=== PATIENT | female | born 1960 | race Caucasian/White ===

== ENCOUNTER 2023-07-16 13:07 | Inpatient (IN) | payer MEDICARE, SELFPAY ==
[2023-07-16] VITALS (9 sets, daily range): BP systolic 0–130; BP diastolic 0–90; PULSE 70–120; RESP 18–21; TEMP 36.1–37.1; O2SAT 94–99; BMI 49.1
[2023-07-16 13:25] LABS: MANUAL DIFFERENTIAL MANUAL DIFFERENTIAL (MANUAL DIFF)
[2023-07-16 13:32] LABS: Chloride 108 mmol/L (98-107)
[2023-07-16 13:33] LABS: Potassium 4.5 mmoL/L (3.5-5.1); Sodium 138 mmol/L (136-145)
[2023-07-16 13:35] LABS: Blood Urea Nitrogen 21 mg/dl (7-17); Creatinine Clearance Estimated 46 mL/min (50-200); Estimated Glomerular Filt Rate 63 ml/min (>60); GFR (African American) 77 ML/MIN (>60)
[2023-07-16 13:36] LABS: Anion Gap 9.5 mEq/L (5-15); Calcium 9.7 mg/dl (8.4-10.2); Carbon Dioxide 25 mmol/L (22.0-30.0); Glucose 120 mg/dl (74-100)
--- NOTE | 2023-07-16 13:40 | PC.NURSE ---
Late entry: pt arrived to the floor at 1310 via EMS stretcher
--- NOTE | 2023-07-16 13:44 | HMH.PHAHEP ---
[facility] Pharmacy Heparin Dosing Demographic Data Admission date:: 07/16/23 Date: 07/16/23 Time: 13:44 Allergies Allergy/AdvReac Type Severity Reaction Status Date / Time Penicillins Allergy Mild Verified 07/16/23 13:29 Height: 1.57 m Weight: 122.016 kg Indication Medication therapy:: Heparin Current Indications:: PE-HIGH DOSE PROTOCOL Current Active Problems (Updated 07/17/23 @ 03:13 by Davy Byers APRN) HTN (hypertension) (Acute) Pulmonary embolism (Acute) CVA?: No Bleeding problem?: No Kidney disease?: No ME?: No Desired PTT range:: 50-75 seconds Monitoring Dose Monitor 1: Date: 07/16/23 Time: 13:30 PTT Result:: BASELINE PTT: 109.6 SECONDS Infusion Rate:: CONTINUED HEPARIN DRIP RATE FROM [facility] AT 2400 UNITS/HOUR = 48 ML/HOUR. Comment:: BASELINE PTT ORDERED, PATIENT TRANSFERRED FROM [facility] ON HEPARIN DRIP. PER ROSARIO PERRY, PATIENT WAS ON 24.2 ML/DRSF=2922 ML/HOUR AT [facility] (THEY USE A 45226 UNITS/250 ML HEPARIN BAG). STARTED OUR BAG (49614 UNITS/500 ML) AT 48 ML/HOUR = 2400 UNITS/HOUR. Dose Monitor 2: Date: 07/16/23 Time: 15:00 (NOT DRAWN UNTIL 18:40.) PTT Result:: GREATER THAN 139.0 SECONDS Infusion Rate:: DECREASED HEPARIN DRIP TO 2000 UNITS/HOUR = 40 ML/HOUR. Dose Monitor 3: Date: 07/16/23 Time: 22:40 PTT Result:: 139.0 SECONDS Infusion Rate:: HEPARIN DRIP STOPPED AT 00:58 (07/17/23) FOLLOWING XARELTO 15 MG DOSE AT 22:06. Core Measures Is INR > or = 2 at discharge?: No Most Recent Labs:: Laboratory Results - last 24 hr 07/16/23 13:23: Sodium 138, Potassium 4.5, Chloride 108 H, Carbon Dioxide 25, Anion Gap 9.5, BUN 21 H, Creatinine 0.90, Estimated Creat Clear 46, Estimated GFR 63, Est GFR ( Amer) 77, Glucose 120 H, Calcium 9.7 Were Heparin and Warfarin started on the same day?: No
--- NOTE | 2023-07-16 13:54 | PC.NURSE ---
pt to matlab developer by scott at this time
--- NOTE | 2023-07-16 14:03 | IR_ITS ---
APPROVED REPORT Patient Location: Emergent Immigration Inspector: ANTHONY Alvarez RT (R) PROCEDURES Right heart catheterization Catheter placed in the right pulmonary artery Right pulmonary artery selective angiogram Catheter placement in the left pulmonary artery Left pulmonary artery selective angiogram Mechanical thrombectomy to the right pulmonary artery Mechanical thrombectomy to the left pulmonary Mechanical thrombectomy to the main pulmonary Post mechanical thrombectomy main pulmonary artery angiogram Right heart catheterization post mechanical thrombectomy INDICATION Saddle pulmonary embolism, Severe right ventricular strain, Submassive pulm embolism Informed consent was obtained prior to the procedure. COMPLICATIONS None TECHNIQUE 1% lidocaine used to size right groin the right femoral vein was accessed via the center technique and a 7 Northern Irish sheath was placed in the right femoral artery. This was upsized to a 14 [place] sheath and an angled pigtail catheter was placed in the right pulmonary artery under fluoroscopic guidance. Selective angiography was performed. This was repeated in the left pulmonary artery. Following this an Amplatz wire was placed through the pigtail catheter and a penumbra aspiration catheter was advanced and mechanical aspiration was performed in the bilateral pulmonary arteries. Copious white and dark red thrombus was aspirated. Patient's initial pulmonary systolic pressure was 50 mmHg. After mechanical thrombectomy of the bilateral pulmonary arteries and main pulmonary artery PA systolic pressure dropped to 25 mmHg. Initial angiography demonstrated bilateral thrombi in the proximal pulmonary artery and main right and left pulmonary arteries. Following mechanical thrombectomy there was wide patency throughout the entire right lung with small to medium sized clot in the upper lobe which did not impede distal parenchymal perfusion. Slightly larger thrombus was identified in the left lung significantly reduced from baseline angiography with significant improvement in distal perfusion. At the end of the procedure pulmonary artery angiography was performed. Right heart catheterization was repeated. The apparatus was then removed the sheath was removed good hemostasis was achieved using a Z stitch and mechanical pressure. Patient transferred to the postop holding in stable condition ANGIOGRAPHIC RESULTS Pulmonary artery pressure preprocedure was 50/35 mmHg Pulmonary artery pressure postprocedure was 25/15 mmHg IMPRESSION Submassive saddle pulmonary embolism as described above Successful mechanical thrombectomy as described above the bilateral pulmonary arteries and main pulmonary Significant reduction in pulmonary artery systolic pressure from 50 mmHg to 25 mmHg Incidental left atrial thrombus identified by CTA which requires additional workup and evaluation PLAN 1. Xarelto 15 mg p.o. twice daily 2. Start Xarelto 15 mg this evening and 2 hours later discontinue heparin drip 3. Supportive care 4. CBC chemistry panel in the morning 5. I would like to obtain echocardiogram Tuesday to better evaluate right ventricular size and pressure 6. Consider JANINE Tuesday to better evaluate structure in the left atrial Electronically signed by : Elijah Mann MD 07/16/2023 16:40:55
[2023-07-16 14:05] LABS: Basophils # 0.1 K/mm3 (0-0.2); Basophils % 0.6 % (0.1-2.0); Eosinophils # 0.1 K/mm3 (0.0-0.4); Eosinophils % 0.6 % (0.1-12.0); Hematocrit 45.7 % (37.0-47.0); Hemoglobin 14.7 g/dL (12.2-16.2); Lymphocytes # 2.9 K/mm3 (0.7-4.5); Lymphocytes % 25.1 % (10-50); Mean Corpuscular HGB Conc 32.2 g/dL (31.8-35.4); Mean Corpuscular Hemoglobin 31.3 pg (27.0-31.2); Mean Corpuscular Volume 96.9 fl (81-99); Mean Platelet Volume 8.8 fl (7.4-10.4); Monocytes # 0.8 K/mm3 (0.1-1.0); Monocytes % 6.4 % (1.7-9.3); Neutrophils # 7.9 K/mm3 (1.8-7.8); Neutrophils % 67.4 % (37.0-80.0); Platelet Count 208 K/mm3 (142-424); Red Blood Count 4.72 M/mm3 (4.20-5.40); Red Cell Distribution Width 14.9 % (11.5-17.5); White Blood Count 11.7 K/mm3 (4.8-10.8)
[2023-07-16 14:10] LABS: PTT Heparin (inpatient only) 109.6 Seconds (23.6-34.0)
[2023-07-16] MEDS: 0.9 % SODIUM CHLORIDE 500 ML 25 ML IV (14:18)
[2023-07-16] MEDS: LIDOCAINE 1% 10ML MDV 20 ML IJ (14:18)
[2023-07-16] MEDS: HEPARIN 1,000 UNITS/500ML NS (CATH LAB) 3000 UNIT IV (14:18)
[2023-07-16] MEDS: diphenhydrAMINE 50MG/ML VIAL 50 MG IV (14:18)
[2023-07-16] MEDS: ONDANSETRON 4MG/2ML VIAL 4 MG IV ×2 (14:27→21:18)
--- NOTE | 2023-07-16 14:34 | HMH.PHAINT1 ---
Pharmacy Intervention Comments: MEDICATION RECONCILIATION COMPLETE USING EXTERNAL PHARMACY FILL HISTORY AND PATTY REPORT.
[2023-07-16] MEDS: HEPARIN 1,000 UNITS/ML 10ML VIAL (CATH LAB) 10000 UNIT IV (14:38)
[2023-07-16 15:27] LABS: Lymphocytes % 25 % (10-50); Monocytes % 3 % (2-9); Neutrophils % 72 % (42-76); Platelet Estimate Normal; RBC Morphology Normal; Total Cells Counted 100
[2023-07-16] MEDS: MIDAZOLAM HCL 1MG/1ML 5ML VIAL 1 MG IV (16:24)
[2023-07-16] MEDS: FENTANYL 100MCG/2ML VIAL 50 MCG IV (16:24)
--- NOTE | 2023-07-16 17:00 | EXP.HP ---
History of Present Illness *Admission Date: 07/16/23 *Reason for visit:: pulmonary embolism *History of present illness: Patient is a 63-year-old female with past medical history of hypertension hyperlipidemia hypothyroidism who presents to the hospital from outside facility due to pulmonary embolism. Cardiology was consulted from [facility], cardiology recommended to transfer the patient to & for further evaluation and possible thrombectomy. At time of my evaluation patient denies chest pain shortness of breath nausea vomiting constipation dysuria fevers and chills. [facility] Disclaimer: The information contained in this section may have been updated after the patient was seen, as this information can be updated by other users. Social History Smoking Status: Smoker, status unknown alcohol intake: never current occupational status: disabled Travel in the last 8 weeks: None Review of Systems Review of Systems Review of systems:: pertinent systems reviewed and negative unless documented below Meds Home Medications and Allergies Home Medications Medication Instructions Recorded Confirmed Type amlodipine 10 mg tablet 10 mg PO DAILY 07/16/23 07/16/23 History bupropion HCl 150 mg 24 hr tablet, 150 mg PO DAILY 07/16/23 07/16/23 History extended release buspirone 15 mg tablet 15 mg PO TID 07/16/23 07/16/23 History divalproex 125 mg tablet,delayed 125 mg PO BID 07/16/23 07/16/23 History release ergocalciferol (vitamin D2) 1,250 1,250 mcg PO MONTHLY 07/16/23 07/16/23 History mcg (50,000 unit) capsule famotidine 40 mg tablet 40 mg PO DAILY 07/16/23 07/16/23 History gabapentin 300 mg capsule 300 mg PO Q12H 07/16/23 07/16/23 History levothyroxine 75 mcg tablet 75 mcg PO DAILYDM 07/16/23 07/16/23 History pravastatin 20 mg tablet 20 mg PO DAILY 07/16/23 07/16/23 History quetiapine 100 mg tablet 100 mg PO HS 07/16/23 07/16/23 History semaglutide 0.25 mg or 0.5 mg (2 0.5 mg SQ WEEKLY 07/16/23 07/16/23 History mg/3 mL) subcutaneous pen injector (Ozempic) New Prescriptions to Start Prescriptions: Allergies Allergy/AdvReac Type Severity Reaction Status Date / Time Penicillins Allergy Mild Verified 07/16/23 13:29 Exam Data for Last 24 hours Vital signs and Labs for Last 24 Hours: Temp Pulse Resp BP Pulse Ox O2 Del Method O2 Flow Rate 97.7 F 120 H 21 0/0 L 95 Nasal Cannula 3 07/16/23 13:19 07/16/23 13:19 07/16/23 13:19 07/16/23 13:19 07/16/23 13:19 07/16/23 13:07/16/23 13:19 Laboratory Results - last 24 hr 07/16/23 13:23: WBC 11.7 H, RBC 4.72, Hgb 14.7, Hct 45.7, MCV 96.9, MCH 31.3 H, MCHC 32.2, RDW 14.9, Plt Count 208, MPV 8.8, Neut % (Auto) 67.4, Lymph % (Auto) 25.1, [place] % (Auto) 6.4, Eos % (Auto) 0.6, Baso % (Auto) 0.6, Neut # (Auto) 7.9 H, Lymph # (Auto) 2.9, [place] # (Auto) 0.8, Eos # (Auto) 0.1, Baso # (Auto) 0.1, Total Counted 100, Neutrophils % (Manual) 72, Lymphocytes % (Manual) 25, Monocytes % (Manual) 3, Platelet Estimate Normal, RBC Morphology Normal, APTT 109.6 H*, Sodium 138, Potassium 4.5, Chloride 108 H, Carbon Dioxide 25, Anion Gap 9.5, BUN 21 H, Creatinine 0.90, Estimated Creat Clear 46, Estimated GFR 63, Est GFR ( Amer) 77, Glucose 120 H, Calcium 9.7 I & O for Last 24 hours: Intake & Output 07/13/23 07/14/23 07/15/23 07/16/23 23:59 23:59 23:59 23:59 Weight 122.016 kg Constitutional Constitutional: no acute distress *Routine HEENT Exam Head: Present normocephalic Eye: Present EOMI and PERRL ENT: Present mucous membranes moist *Routine Neck Exam Neck: Present supple; Absent lymphadenopathy *Routine Respiratory Exam Respiratory: Present CTA bilaterally *Routine Cardiovascular Exam Cardiovascular: Present RRR *Routine Abdominal Exam Abdominal: Present soft and normoactive bowel sounds; Absent tenderness *Routine Rectal Exam Rectal:: deferred *Routine Genitalia Exam Genitalia:: deferred *Routine Extremities Exam Extremities: Absent cyanosis, clubbing or edema *Routine Skin Exam Skin: Present warm; Absent rash *Routine Neurological Exam Neurological: Present alert and oriented X3 Assessment and Plan *Assessment and plan (1) Pulmonary embolism: Status: Acute Category: Medical Code(s): I26.99 - Other pulmonary embolism without acute cor pulmonale (2) HTN (hypertension): Status: Acute Category: Medical Code(s): I10 - Essential (primary) hypertension Plan Patient is a 63-year-old female with past medical history of hypertension hyperlipidemia hypothyroidism who presents to the hospital from outside facility due to pulmonary embolism. Cardiology was consulted from [facility], cardiology recommended to transfer the patient to & for further evaluation and possible thrombectomy. At time of my evaluation patient denies chest pain shortness of breath nausea vomiting constipation dysuria fevers and chills. Assessment and plan Pulmonary embolism Start IV heparin, then switch to Xarelto Consult cardiology for potential thrombectomy Monitor on cardiac telemetry D-dimer checked at previous facility, elevated plan for JANINE per cardioloogy Hypertension Hyperlipidemia Hypothyroidism Resume home amlodipine, divalproex, buspirone, Neurontin, Seroquel DVT prophylaxis-on xarelto Cardiac cath report IMPRESSION Submassive saddle pulmonary embolism as described above Successful mechanical thrombectomy as described above the bilateral pulmonary arteries and main pulmonary Significant reduction in pulmonary artery systolic pressure from 50 mmHg to 25 mmHg Incidental left atrial thrombus identified by CTA which requires additional workup and evaluation PLAN 1. Xarelto 15 mg p.o. twice daily 2. Start Xarelto 15 mg this evening and 2 hours later discontinue heparin drip 3. Supportive care 4. CBC chemistry panel in the morning 5. I would like to obtain echocardiogram Tuesday to better evaluate right ventricular size and pressure 6. Consider JANINE Tuesday to better evaluate structure in the left atrial
[2023-07-16] MEDS: IOPAMIDOL-370 (76%);100ML BOTTLE 300 ML IV (17:01)
[2023-07-16 17:05] LABS: CATHL Activated Clotting Time 183 SEC (74-125)
[2023-07-16 17:05] LABS: CATHL Activated Clotting Time > 400 SEC (74-125)
--- NOTE | 2023-07-16 17:17 | PC.NURSE ---
pt back to floor @ [phone]
--- NOTE | 2023-07-16 18:14 | CT_ITS ---
PROCEDURE INFORMATION: Exam: CT Head Without Contrast Exam date and time: 07/16/2023 8:22 PM Age: 63 years old Clinical indication: Other: Hypotension TECHNIQUE: Imaging protocol: Computed tomography of the head without contrast. Radiation optimization: All CT scans at this facility use at least one of these dose optimization techniques: automated exposure control; mA and/or kV adjustment per patient size (includes targeted exams where dose is matched to clinical indication); or iterative reconstruction. COMPARISON: No relevant prior studies available. FINDINGS: Brain: Normal. No hemorrhage. Unremarkable white matter. No mass effect. Cerebral ventricles: No ventriculomegaly. Paranasal sinuses: Visualized sinuses are unremarkable. No fluid levels. Mastoid air cells: Visualized mastoid air cells are well aerated. Bones/joints: Unremarkable. No acute fracture. Soft tissues: Unremarkable. IMPRESSION: No acute intracranial abnormality.
--- NOTE | 2023-07-16 18:43 | PC.NURSE ---
difficulty obtaining blood pressure notified dr teresa. no new orders.
[2023-07-16] MEDS: NOREPINEPHRINE BITARTRATE/D5W 8 MG/250 ML PLAST..BAG 15 MG IV (19:01)
[2023-07-16 19:02] LABS: MANUAL DIFFERENTIAL MANUAL DIFFERENTIAL (MANUAL DIFF)
[2023-07-16] MEDS: HEPARIN 25,000 UNITS/D5W 500 ML 48 UNIT IV (19:02)
[2023-07-16 19:07] LABS: Basophils # 0.1 K/mm3 (0-0.2); Basophils % 0.5 % (0.1-2.0); Eosinophils % 0.2 % (0.1-12.0); Hematocrit 35.3 % (37.0-47.0); Lymphocytes % 14.9 % (10-50); Mean Corpuscular HGB Conc 30.1 g/dL (31.8-35.4); Mean Corpuscular Hemoglobin 31.5 pg (27.0-31.2); Mean Corpuscular Volume 104.8 fl (81-99); Mean Platelet Volume 9.7 fl (7.4-10.4); Monocytes # 0.6 K/mm3 (0.1-1.0); Monocytes % 4.6 % (1.7-9.3); Neutrophils # 10.5 K/mm3 (1.8-7.8); Neutrophils % 79.8 % (37.0-80.0); Platelet Count 186 K/mm3 (142-424); Red Blood Count 3.37 M/mm3 (4.20-5.40); Red Cell Distribution Width 14.8 % (11.5-17.5); White Blood Count 13.2 K/mm3 (4.8-10.8)
[2023-07-16 19:13] LABS: Chloride 97 mmol/L (98-107); Sodium 126 mmol/L (136-145)
[2023-07-16 19:15] LABS: Hemoglobin 10.6 g/dL (12.2-16.2)
[2023-07-16 19:16] LABS: Blood Urea Nitrogen 20 mg/dl (7-17); Creatinine Clearance Estimated 43 mL/min (50-200); Estimated Glomerular Filt Rate 56 ml/min (>60); GFR (African American) 68 ML/MIN (>60)
[2023-07-16 19:17] LABS: Calcium 7.3 mg/dl (8.4-10.2); Carbon Dioxide 18 mmol/L (22.0-30.0)
[2023-07-16 19:23] LABS: Glucose 615 mg/dl (74-100)
[2023-07-16 19:26] LABS: Lymphocytes % 19 % (10-50); Monocytes % 2 % (2-9); Neutrophils % 79 % (42-76); Total Cells Counted 100
[2023-07-16 19:27] LABS: Macrocytosis 1+; Platelet Estimate Normal
[2023-07-16 19:52] LABS: PTT Heparin (inpatient only) > 139.0 Seconds (23.6-34.0)
[2023-07-16] MEDS: HEPARIN 25,000 UNITS/D5W 500 ML 40 UNIT IV (20:15)
[2023-07-16] MEDS: RIVAROXABAN 15MG TABLET 15 MG PO (22:06)
--- NOTE | 2023-07-16 22:47 | PC.NURSE ---
1951- spoke with aleida regarding results of CBC, asked if he wanted the zstitch to be removed, stated to remove it 2005- pharmacy called about PTT results, heparin dose decreased to 2,000 2049- z-stitch removed, pressure held for 20 mins 2109- reassessed site, bleeding continued, pressure held for 20 mins reassessed after 20 mins, bleeding continued, BAIL BONDING AGENT came to bedside, hemostat dressing applied with gauze and foam tape, sand bags applied, aleida notified of pt. bleeding 2205- xarelto given, communicated to Rn taking over that the heparin drip should be turned off 2 hours post administration 2214- report given to George Aj, RN
[2023-07-16] MEDS: QUETIAPINE 100MG TABLET 100 MG PO (23:03)
[2023-07-16] MEDS: DIVALPROEX 125 MG 125 EACH PO (23:03)
[2023-07-16] MEDS: PATIENT'S OWN HOME MEDICATION (Buspirone 15 mg tablet) 15 EACH PO (23:03)
[2023-07-16 23:21] LABS: INR 3.75 (0.9-1.1); Prothrombin Time 37.1 seconds (10.1-12.5)
--- NOTE | 2023-07-16 23:30 | PC.NURSE ---
called to check on patient. Update was given. Per aleida he wanted pressure dressing that Migel placed to stay in place in till morning.
[2023-07-17] VITALS (43 sets, daily range): BP systolic 62–104; BP diastolic 42–68; PULSE 96–118; RESP 14–20; TEMP 36.3–37.1; O2SAT 95–100
--- NOTE | 2023-07-17 00:52 | PC.NURSE ---
Addendum entered by aNomi Aj RN 07/17/23 05:56: Per dr. Mann orders Original Note: Heparin was stopped at [address] Arie choi
[2023-07-17] MEDS: PROMETHAZINE HCL 25MG/ML 1ML VIAL 25 MG IV ×2 (01:26→09:16)
[2023-07-17] MEDS: SODIUM CHLORIDE 0.9% 25ML BAG 25 ML IV (01:27)
[2023-07-17 02:10] LABS: Hematocrit 28.2 % (37.0-47.0)
[2023-07-17 02:14] LABS: Hemoglobin 7.9 g/dL (12.2-16.2)
--- NOTE | 2023-07-17 02:48 | EXP.RR ---
Acute Rapid Response Note Subjective Date Responded: 07/17/23 Time Responded: 02:48 Provider Note: SCOW DERRICK OPERATOR was called for hypotension and right groin bleeding (cath access site). patient seen and evaluated at bedside. nurses has been applying pressure sand bag 7Lbs to the right groin. hemostatic dressing applied. secured with compressing dressing and sand bag. unable to read BP in the monitor in all 4 extremities. patient max out on pressure. After placed on [place] position,. read came out 93/52. MAP 67. CBC ordered showed Hb7.9. 2 unit of blood ordered. ED provider assisting with arterial line placement for accurate reading of the BP. patient alert and oriented. HR 106. CMP showed blood sugar in the 800 s range. [facility] protocols also started Objective Findings: Vital Signs - Last 4 Hours Temperature 97.4 F L 07/17/23 01:00 Temperature Source Axillary 07/17/23 01:00 Pulse Rate 96 H 07/17/23 00:00 Respiratory Rate 18 07/17/23 00:00 Blood Pressure 93/52 L 07/17/23 00:00 Blood Pressure Mean 65 07/17/23 00:00 Blood Pressure Source Automatic Cuff 07/17/23 00:00 02 Sat by Pulse Oximetry 100 07/17/23 00:00 Oxygen Delivery Method Nasal Cannula 07/17/23 00:00 Oxygen Flow Rate (LPM) 2 07/17/23 00:00 Lab Results for Past 12 Hours 07/17/23 02:05: Hgb 7.9 L D, Hct 28.2 L 07/16/23 22:40: PT 37.1 H, INR 3.75 H, APTT 139.0 H* 07/16/23 18:48: Blood Type A Positive, Antibody Screen Negative 07/16/23 18:40: WBC 13.2 H, RBC 3.37 L D, Hgb 10.6 L D, Hct 35.3 L, MCV 104.8 H, MCH 31.5 H, MCHC 30.1 L, RDW 14.8, Plt Count 186, MPV 9.7, Neut % (Auto) 79.8, Lymph % (Auto) 14.9, [place] % (Auto) 4.6, Eos % (Auto) 0.2, Baso % (Auto) 0.5, Neut # (Auto) 10.5 H, Lymph # (Auto) 2.0, [place] # (Auto) 0.6, Eos # (Auto) 0.0, Baso # (Auto) 0.1, Total Counted 100, Neutrophils % (Manual) 79 H, Lymphocytes % (Manual) 19, Monocytes % (Manual) 2, Platelet Estimate Normal, RBC Morphology Not Reportable, Macrocytosis 1+, APTT > 139.0 H*, Sodium 126 L, Potassium 5.0, Chloride 97 L, Carbon Dioxide 18 L, Anion Gap 16.0 H, BUN 20 H, Creatinine 1.00, Estimated Creat Clear 43, Estimated GFR 56 L, Est GFR ( Amer) 68, Glucose 615 H* D, Calcium 7.3 L 07/16/23 16:14: Activated Clotting Time > 400 H* D 07/16/23 14:18: Activated Clotting Time 183 H* 07/16/23 13:23: Total Counted 100, Neutrophils % (Manual) 72, Lymphocytes % (Manual) 25, Monocytes % (Manual) 3, Platelet Estimate Normal, RBC Morphology Normal My Orders Category Date Time Status Transfuse RBC's [Red Blood Cells] Routine BBK 07/17/23 02:26 Results *NSG ONLY Trnsf 2 Units Now ONCE Care 07/17/23 02:27 Active Arterial pressure monitor CONT Care 07/17/23 02:37 Active Blood Product Notification* ONCE Care 07/17/23 02:27 Active Nursing to Order H/H Post Slade once Care 07/17/23 02:26 Active Periph arterial cath mgmt QSHIFT Care 07/17/23 02:37 Active Remove arterial line NEEDED Care 07/17/23 02:37 Active Saline Lock Insertion Once Care 07/17/23 02:26 Active CMP [Comprehensive Metabolic Panel] Stat Lab 07/17/23 02:43 Ordered Finger Stick Blood Glucose ACHS Lab 07/17/23 02:43 Active Finger Stick Blood Glucose NEEDED Lab 07/17/23 02:43 Active Hemoglobin and Hematocrit Stat Lab 07/17/23 02:05 Completed PT/PTT Stat Lab 07/16/23 22:40 Completed 0.9 % Sodium Chloride [Sod Chlor 0.9% 250mL Bag] 250 ml Med 07/17/23 02:30 Ordered IV 25 mls/hr 0.9 % Sodium Chloride [Sod Chlor 0.9% 25mL Bag] Med 07/17/23 01:19 Ordered 25 ml IV NEEDED PRN Gabapentin [Neurontin 300mg capsule] Med 07/17/23 09:00 Ordered 300 mg PO Q12H Ondansetron HCl/Pf [Zofran 4mg/2mL vial] Med 07/16/23 21:05 Discontinued 4 mg IV Q6HP PRN Promethazine HCl [Phenergan 25mg/mL 1mL vial] Med 07/17/23 01:19 Ordered 25 mg IV Q4HP PRN Radiology Findings #1: Xray Reviewed: Chest Image Reviewed: Yes I reviewed the patient's radiology results and Yes I reviewed the patient's radiology image ED XR Results: Normal/NAD ECG Data Tracing #1: Attestation EKG: I reviewed this ECG and interpreted as documented below: ECG initial impression date: 07/17/23 ECG initial impression time: 15:59 Arrhythmias present: sinus tach EKG compared to prior tracings: there are no prior tracings available for comparison Tracing #2: ECG initial impression date: 07/17/23 ECG initial impression time: 03:30 Arrhythmias present: sinus tach EKG compared to prior tracings: there are no significant changes Rapid Response Exam General General appearance: alert Head Head exam: atraumatic and normocephalic Eye Eye exam: Present normal appearance, PERRL and EOMI ENT ENT exam: Present normal exam Neck Neck exam: Present normal inspection Chest Chest inspection: Present normal inspection Respiratory Respiratory exam: Present normal lung sounds bilaterally Cardiovascular Cardiovascular exam: Present regular rate and tachycardia Abdominal Exam Abdominal exam: Present soft and normal bowel sounds Extremities Exam Extremities exam: Present normal capillary refill Expanded Lower Extremity Exam Right: 1. bleeding from surgical access site. no induration or pain to palpation. pedal and tibial posterior pulses are present by doppler Neurological Exam Neurological exam: Present alert and oriented X3 Psychiatric Psychiatric exam: Present normal affect Skin Skin exam: Present warm and pallor RR Procedures/Assess/Plan Additional Bedside Procedures NG tube insertion: No Fabian catheter insert: No Peripheral IV access: No Arterial blood draw: Yes Other: Arterial line placement Reevaluation(s) Time: 03:30 Reevaluation #1: hemodinamicall stable. BP 80/54 MAP 61. HR 108. Continue max out on levophed waiting blood transfusion. Hyperglycemia of 866. HHS star (1) Pulmonary embolism: Status: Acute Qualifiers: Acute cor pulmonale presence: with acute cor pulmonale Chronicity: acute Pulmonary embolism type: saddle Qualified Code(s): I26.02 - Saddle embolus of pulmonary artery with acute cor pulmonale (2) Hemorrhage: Status: Acute (3) Hyperosmolar hyperglycemic state (HHS): Status: Acute Assessment and plan all Dx Assessment and Plan for all problems:: After placed on [place] position,. read came out 93/52. MAP 67. CBC ordered showed Hb7.9. 2 unit of blood ordered. ED provider assisting with arterial line placement for accurate reading of the BP. patient alert and oriented. HR 106. hemodinamically stable. BP 80/54 MAP 61. HR 108. Continue max out on levophed waiting CMP showed hyperglicemia of 800's with open anion gap. insulin bolus ordered. started on insulin infusion.
[2023-07-17 02:53] LABS: Chloride 89 mmol/L (98-107); Potassium 4.3 mmoL/L (3.5-5.1); Sodium 121 mmol/L (136-145)
[2023-07-17 02:56] LABS: Alanine Aminotransferase 18 U/L (12-78); Albumin Level 2.3 g/dl (3.5-5.0); Alkaline Phosphatase 51 U/L (38-126); Anion Gap 20.3 mEq/L (5-15); Aspartate Amino Transferase 39 U/L (14-36); Bilirubin,Total 0.3 mg/dl (0.2-1.3); Blood Urea Nitrogen 19 mg/dl (7-17); Carbon Dioxide 16 mmol/L (22.0-30.0); Creatinine Clearance Estimated 43 mL/min (50-200); Estimated Glomerular Filt Rate 56 ml/min (>60); GFR (African American) 68 ML/MIN (>60); Globulin 2.2 g/dL (1.3-3.2); Total Protein,Serum 4.5 g/dl (6.3-8.2)
[2023-07-17 02:57] LABS: Calcium 6.4 mg/dl (8.4-10.2)
[2023-07-17 03:08] LABS: Glucose 866 mg/dl (74-100)
--- NOTE | 2023-07-17 03:25 | XR_ITS ---
PROCEDURE INFORMATION: Exam: XR Chest Exam date and time: 07/17/2023 4:16 AM Age: 63 years old Clinical indication: Device placement; Other: Central line; Prior surgery; Surgery date: Post-operative (0-2 days); Surgery type: Thrombectomy; Additional info: Pe. S/P thrombectomy. [facility] protocols, central line TECHNIQUE: Imaging protocol: Radiologic exam of the chest. Views: 1 view. COMPARISON: XA CL PULMONARY ANGIOGRAM 07/16/2023 2:04 PM FINDINGS: Tubes, catheters and devices: Right-sided central venous catheter distal tip is in the superior vena cava. Lungs: Right basilar atelectasis. No consolidation. Pleural spaces: No pneumothorax noted. Heart/Mediastinum: Unremarkable. No cardiomegaly. Diaphragm: Elevation of the right hemidiaphragm. Bones/joints: Unremarkable. IMPRESSION: Central venous catheter in good position.
[2023-07-17] MEDS: 0.9 % SODIUM CHLORIDE 250 ML 25 ML IV (03:30)
[2023-07-17] MEDS: NOREPINEPHRINE BITARTRATE/D5W 8 MG/250 ML PLAST..BAG 56.25 MG IV ×3 (03:50→09:21)
[2023-07-17] MEDS: 0.9 % SODIUM CHLORIDE 1000ML 500 ML 999 ML IV (04:10)
--- NOTE | 2023-07-17 04:20 | HMH.PROCNOTE ---
[facility] Procedure Note Date: 07/17/23 Time: 03:02 Procedure Note:: Arterial line placement Patient found to have good blood flow in the right radial artery with after Daniel's test performed. Under ultrasound guidance and sterile procedure a 21G radial arterial line Arrow was placed with good flush and draw and pressure obtained on monitor. Patient tolerated the procedure well. MD Silverio
--- NOTE | 2023-07-17 04:25 | HMH.PROCNOTE ---
[facility] Procedure Note Date: 07/17/23 Time: 04:20 Procedure Note:: Central line placement Central line needed for central vascular access as patient requiring pressor medication. Patient placed in Trendelenburg and under ultrasound guidance and sterile procedure an 18 Faroese catheter was placed in the right IJ. Patient tolerated the procedure well and all lumens were flushed and michelle without difficulty. X-ray obtained to confirm placement. Was placed at approximately 13.5 cm depth. Chantelle Vogel MD
[2023-07-17 04:54] LABS: ABG Base Excess -11.9 mmol/L (-2.4-2.3); ABG Oxygen Saturation 93 % (90-100); ABG PCO2 27.3 mmhg (35.0-45.0); ABG PH 7.33 mmol/L (7.35-7.45); ABG PO2 70.5 mmhg (80-100); ABG TCO2 14.9 mmhg (23-27)
[2023-07-17 04:55] LABS: Allen's Test Non Applicable; Oxygen 1.5 lpm nc %
[2023-07-17 04:56] LABS: Source A-Line
[2023-07-17 05:02] LABS: Basophils # 0.1 K/mm3 (0-0.2); Basophils % 0.7 % (0.1-2.0); Eosinophils % 0.1 % (0.1-12.0); Lymphocytes % 15.8 % (10-50); Mean Corpuscular HGB Conc 31.9 g/dL (31.8-35.4); Mean Corpuscular Hemoglobin 31.5 pg (27.0-31.2); Mean Corpuscular Volume 98.7 fl (81-99); Mean Platelet Volume 9.6 fl (7.4-10.4); Monocytes # 1.2 K/mm3 (0.1-1.0); Monocytes % 6.3 % (1.7-9.3); Neutrophils # 14.6 K/mm3 (1.8-7.8); Neutrophils % 77.1 % (37.0-80.0); Platelet Count 218 K/mm3 (142-424); Red Blood Count 3.75 M/mm3 (4.20-5.40); Red Cell Distribution Width 15.1 % (11.5-17.5); White Blood Count 18.9 K/mm3 (4.8-10.8)
[2023-07-17 05:05] LABS: MANUAL DIFFERENTIAL MANUAL DIFFERENTIAL (MANUAL DIFF)
[2023-07-17 05:06] LABS: Hemoglobin 11.8 g/dL (12.2-16.2)
[2023-07-17 05:09] LABS: Acetone, Serum (Rapid) None Detected (None Detect); Magnesium 1.8 mg/dl (1.6-2.3); Phosphorous 7.9 mg/dl (2.5-4.5)
[2023-07-17 05:10] LABS: Lactic Acid 2.7 mmol/L (0.7-2.1)
[2023-07-17 05:18] LABS: Microscopic, Urine URINE MICROSCOPIC (MICROSCOPIC)
[2023-07-17 05:21] LABS: Appearance,Urine SL CLOUDY (Clear); Bilirubin,Urine Negative (Negative); Blood, Urine Negative (Negative); Color,Urine YELLOW (Yellow); Glucose,Urine (UA) Negative (Negative); Ketones,Urine Negative (Negative); Leukocyte Esterase,Urine 1+ (Negative); Nitrate,Urine Negative (Negative); Protein,Urine Negative (Negative); Specific Gravity, Urine 1.015 (1.005-1.030); Urobilinogen,Urine 0.2 EU/dl (0.2)
--- NOTE | 2023-07-17 05:23 | PC.NURSE ---
At 0200 this nurse was unable to obtain a NIBP attempts was made using several locations, attempts to get a manual blood pressure was not successful. Migel, ENTERPRISE ACCOUNT EXECUTIVE was made aware and orders received to have an ART line placed for accurate blood pressure monitoring. ER doctor Chantelle was asked to place line and agreed to place ART line. ART line was placed to right radial artery, success 1st attempt. Pressures was reading 70s/40s, levophed GTT was titrated to max per protocol. Patient was pale, lethargic, and complaints of nausea. Patient had three episodes of vomiting clear emesis. Labs was obtained. Patients lab results showed elevated glucose to 866 and an anion gap of 20 Migel, ENTERPRISE ACCOUNT EXECUTIVE was notified and orders received to start DKA protocol. Patients HGB dropped to 7.9 Orders received to transfuse 2 units PRBC Per Migel ER doctor was notified again to place CVC for more IV access. Chantelle, ED doctor placed triple lumen Right IJ CVC at 0405, confirmation made with chest Xray. Chantelle, ED doctor read chest xray and verified placement. Blood work was obtained as ordered. ABG was collected from ART line. Respiratory called with critical 02 and requested oxygen to be titrated to 3LNC. Patient and family was made aware of all results and updated on plan of care. Patient was agreeable to plan of care.
[2023-07-17 05:29] LABS: Lymphocytes % 16 % (10-50); Monocytes % 1 % (2-9); Neutrophils % 79 % (42-76); Platelet Estimate Normal; RBC Morphology Normal; Total Cells Counted 100
[2023-07-17 05:38] LABS: Bacteria,Urine 3+ /lpf; WBC,Urine 20-50 #/hpf (0-3)
--- NOTE | 2023-07-17 05:42 | PC.NURSE ---
0450 CBC labs was obtained while patient was receiving blood.
[2023-07-17 05:43] LABS: Chloride 113 mmol/L (98-107); Sodium 136 mmol/L (136-145)
[2023-07-17 05:44] LABS: Potassium 5.4 mmoL/L (3.5-5.1)
[2023-07-17 05:46] LABS: Alanine Aminotransferase 25 U/L (12-78); Alkaline Phosphatase 73 U/L (38-126); Anion Gap 13.4 mEq/L (5-15); Aspartate Amino Transferase 48 U/L (14-36); Bilirubin,Total 0.3 mg/dl (0.2-1.3); Blood Urea Nitrogen 25 mg/dl (7-17); Carbon Dioxide 15 mmol/L (22.0-30.0); Creatinine Clearance Estimated 26 mL/min (50-200); Estimated Glomerular Filt Rate 30 ml/min (>60); GFR (African American) 37 ML/MIN (>60)
[2023-07-17 05:47] LABS: Albumin Level 2.7 g/dl (3.5-5.0); Calcium 7.8 mg/dl (8.4-10.2); Globulin 2.6 g/dL (1.3-3.2); Glucose 194 mg/dl (74-100); Total Protein,Serum 5.3 g/dl (6.3-8.2)
[2023-07-17 05:49] LABS: POC Glucose,Bedside 225 (70-110)
[2023-07-17 05:49] LABS: POC Glucose,Bedside 172 (70-110)
[2023-07-17 05:52] LABS: Hemoglobin A1C 5.5 % (4.0-6.0)
[2023-07-17] MEDS: 0.9 % SODIUM CHLORIDE 1000ML 1,000 ML 999 ML IV (06:05)
--- NOTE | 2023-07-17 06:18 | PC.NURSE ---
TECH NOTIFIED THIS RN THAT THE BED SCALE IS READING 15.4 LBS; THIS RN WENT TO BEDSIDE TO TAKE BED WEIGHT AND GOT THE SAME RESULTS. THIS PT IS NOT STABLE TO GET OUT OF BED FOR BED TO BE ZEROED OUT TO GET A PROPER WT; PRIMARY RN NOTIFIED BY THIS RN THAT WT IS UNABLE TO BE OBTAINED AT THIS TIME.
--- NOTE | 2023-07-17 06:49 | PC.NURSE ---
1st unit of blood finished at 0550, second unit started infusing at 0645.
--- NOTE | 2023-07-17 06:50 | PC.NURSE ---
Patient just finished the ordered 1500ml bolus per [facility] protocol
--- NOTE | 2023-07-17 06:54 | PC.NURSE ---
labs sent down after fluid bouls given
[2023-07-17 07:11] LABS: Chloride 118 mmol/L (98-107); Potassium 5.3 mmoL/L (3.5-5.1); Sodium 136 mmol/L (136-145)
[2023-07-17 07:13] LABS: Blood Urea Nitrogen 25 mg/dl (7-17); Creatinine Clearance Estimated 27 mL/min (50-200); Estimated Glomerular Filt Rate 33 ml/min (>60); GFR (African American) 39 ML/MIN (>60)
[2023-07-17 07:14] LABS: Anion Gap 7.3 mEq/L (5-15); Calcium 7.4 mg/dl (8.4-10.2); Carbon Dioxide 16 mmol/L (22.0-30.0); Glucose 154 mg/dl (74-100); Magnesium 1.7 mg/dl (1.6-2.3); Phosphorous 6.7 mg/dl (2.5-4.5)
[2023-07-17 09:00] LABS: Reflex Lactic Add Lactic Reflex
[2023-07-17] MEDS: LACTATED RINGERS 1000ML 1,000 ML 999 ML IV (10:11)
[2023-07-17] MEDS: FAMOTIDINE 20MG TABLET 10 MG PO (10:11)
[2023-07-17 10:42] LABS: Basophils # 0.2 K/mm3 (0-0.2); Basophils % 0.7 % (0.1-2.0); Eosinophils % 0.1 % (0.1-12.0); Hematocrit 41.5 % (37.0-47.0); Lymphocytes # 3.9 K/mm3 (0.7-4.5); Lymphocytes % 16.9 % (10-50); Mean Corpuscular HGB Conc 32.5 g/dL (31.8-35.4); Mean Corpuscular Volume 95.3 fl (81-99); Mean Platelet Volume 9.5 fl (7.4-10.4); Monocytes # 1.5 K/mm3 (0.1-1.0); Monocytes % 6.4 % (1.7-9.3); Neutrophils # 17.4 K/mm3 (1.8-7.8); Neutrophils % 75.8 % (37.0-80.0); Platelet Count 175 K/mm3 (142-424); Red Blood Count 4.35 M/mm3 (4.20-5.40); Red Cell Distribution Width 15.7 % (11.5-17.5)
[2023-07-17 10:44] LABS: Lactic Acid Follow Up (RFLX 1) 1.9 mmol/L (0.7-2.1)
[2023-07-17 10:54] LABS: Hemoglobin 13.6 g/dL (12.2-16.2)
[2023-07-17 11:42] LABS: POC Glucose,Bedside 144 (70-110)
[2023-07-17] MEDS: NOREPINEPHRINE BITARTRATE/D5W 8 MG/250 ML PLAST..BAG 45 MG IV (11:49)
[2023-07-17] MEDS: BUSPIRONE HCL 5 MG TABLET 15 MG PO ×2 (13:55→21:01)
--- NOTE | 2023-07-17 14:53 | HMH.ITSTN ---
spoke to RN at 14:53, scan to be done tomorrow. non-emergent. per Ron.
[2023-07-17] MEDS: NOREPINEPHRINE BITARTRATE/D5W 8 MG/250 ML PLAST..BAG 26.25 MG IV (15:04)
--- NOTE | 2023-07-17 15:07 | P.PN_ITS ---
Subjective *Date: 07/17/23 *Time: 15:07 Interval history: patient is seen at bedside, patient had major event with bleeding episode from Pulmonary cath site, received 2 units of blood. patient is alert and awake, holding conversations, denied CP, SOB, Abdominal pain her BG was 866 at night, she received insulin bolus Exam Data for Last 24 hours Vital signs and Labs for Last 24 Hours: Temp Pulse Resp BP Pulse Ox O2 Del Method O2 Flow Rate 97.5 F L 106 H 18 94/60 L 95 Nasal Cannula 3 07/17/23 11:43 07/17/23 14:00 07/17/23 14:00 07/17/23 14:00 07/17/23 14:00 07/17/23 14:00 07/17/23 14:00 Laboratory Results - last 24 hr 07/16/23 13:23: Total Counted 100, Neutrophils % (Manual) 72, Lymphocytes % (Manual) 25, Monocytes % (Manual) 3, Platelet Estimate Normal, RBC Morphology Normal 07/16/23 14:18: Activated Clotting Time 183 H* 07/16/23 16:14: Activated Clotting Time > 400 H* D 07/16/23 18:40: WBC 13.2 H, RBC 3.37 L D, Hgb 10.6 L D, Hct 35.3 L, MCV 104.8 H, MCH 31.5 H, MCHC 30.1 L, RDW 14.8, Plt Count 186, MPV 9.7, Neut % (Auto) 79.8, Lymph % (Auto) 14.9, [place] % (Auto) 4.6, Eos % (Auto) 0.2, Baso % (Auto) 0.5, Neut # (Auto) 10.5 H, Lymph # (Auto) 2.0, [place] # (Auto) 0.6, Eos # (Auto) 0.0, Baso # (Auto) 0.1, Total Counted 100, Neutrophils % (Manual) 79 H, Lymphocytes % (Manual) 19, Monocytes % (Manual) 2, Platelet Estimate Normal, RBC Morphology Not Reportable, Macrocytosis 1+, APTT > 139.0 H*, Sodium 126 L, Potassium 5.0, Chloride 97 L, Carbon Dioxide 18 L, Anion Gap 16.0 H, BUN 20 H, Creatinine 1.00, Estimated Creat Clear 43, Estimated GFR 56 L, Est GFR ( Amer) 68, Glucose 615 H* D, Calcium 7.3 L 07/16/23 18:48: Blood Type A Positive, Antibody Screen Negative, Crossmatch ([facility]) See Detail 07/16/23 22:01: POC Glucose 225 H 07/16/23 22:40: PT 37.1 H, INR 3.75 H, APTT 139.0 H*, Sodium 121 L, Potassium 4.3, Chloride 89 L, Carbon Dioxide 16 L, Anion Gap 20.3 H, BUN 19 H, Creatinine 1.00, Estimated Creat Clear 43, Estimated GFR 56 L, Est GFR ( Amer) 68, Glucose 866 H* D, Calcium 6.4 L, Total Bilirubin 0.3, AST 39 H, ALT 18, Alkaline Phosphatase 51, Total Protein 4.5 L, Albumin 2.3 L, Globulin 2.2, Albumin/Globulin Ratio 1.0 L 07/17/23 02:05: Hgb 7.9 L D, Hct 28.2 L, Blood Type Confirm A Positive 07/17/23 03:33: Specimen Source A-line, O2 % 1.5 lpm nc, ABG pH 7.33 L, ABG pCO2 27.3 L, ABG pO2 70.5 L, ABG HCO3 14.0 L, ABG Total CO2 14.9 L, ABG O2 Saturation 93, ABG Base Excess -11.9 L, Daniel Test Non applicable 07/17/23 04:50: WBC 18.9 H D, RBC 3.75 L, Hgb 11.8 L D, Hct 37.0, MCV 98.7, MCH 31.5 H, MCHC 31.9, RDW 15.1, Plt Count 218, MPV 9.6, Neut % (Auto) 77.1, Lymph % (Auto) 15.8, [place] % (Auto) 6.3, Eos % (Auto) 0.1, Baso % (Auto) 0.7, Neut # (Auto) 14.6 H, Lymph # (Auto) 3.0, [place] # (Auto) 1.2 H, Eos # (Auto) 0.0, Baso # (Auto) 0.1, Total Counted 100, Neutrophils % (Manual) 79 H, Band Neutrophils % 4.0, Lymphocytes % (Manual) 16, Monocytes % (Manual) 1 L, Platelet Estimate Normal, RBC Morphology Normal, Sodium 136, Potassium 5.4 H D, Chloride 113 H, Carbon Dioxide 15 L, Anion Gap 13.4, BUN 25 H D, Creatinine 1.70 H D, Estimated Creat Clear 26, Estimated GFR 30 L, Est GFR ( Amer) 37 L D, Glucose 194 H D, Hemoglobin A1c 5.5, Lactate 2.7 H, Calcium 7.8 L, Phosphorus 7.9 H, Magnesium 1.8, Total Bilirubin 0.3, AST 48 H, ALT 25 D, Alkaline Phosphatase 73, Total Protein 5.3 L, Albumin 2.7 L D, Globulin 2.6, Albumin/Globulin Ratio 1.0 L, Acetone Level None detected 07/17/23 05:00: Urine Color Yellow, Urine Appearance Sl cloudy, Urine pH 6.0, Ur Specific [place] 1.015, Urine Protein Negative, Urine Glucose (UA) Negative, Urine Ketones Negative, Urine Blood Negative, Urine Nitrate Negative, Urine Bilirubin Negative, Urine Urobilinogen 0.2, Ur Leukocyte Esterase 1+ A, Urine RBC None, Urine WBC 20-50, Ur Squamous Epith Cells 5-10, Urine Bacteria 3+ 07/17/23 05:42: POC Glucose 172 H 07/17/23 07:00: Sodium 136, Potassium 5.3 H, Chloride 118 H, Carbon Dioxide 16 L , Anion Gap 7.3, BUN 25 H, Creatinine 1.60 H, Estimated Creat Clear 27, Estimated GFR 33 L, Est GFR ( Amer) 39 L, Glucose 154 H D, Calcium 7.4 L, Phosphorus 6.7 H, Magnesium 1.7 07/17/23 10:25: WBC 23.0 H*, RBC 4.35, Hgb 13.6 D, Hct 41.5, MCV 95.3, MCH 31.0, MCHC 32.5, RDW 15.7, Plt Count 175, MPV 9.5, Neut % (Auto) 75.8, Lymph % (Auto) 16.9, [place] % (Auto) 6.4, Eos % (Auto) 0.1, Baso % (Auto) 0.7, Neut # (Auto) 17.4 H, Lymph # (Auto) 3.9, [place] # (Auto) 1.5 H, Eos # (Auto) 0.0, Baso # (Auto) 0.2, Lactate 1.9 07/17/23 11:34: POC Glucose 144 H I & O for Last 24 hours: Intake & Output 07/14/23 07/15/23 07/16/23 07/17/23 23:59 23:59 23:59 23:59 Intake Total 103.691 / 076.373 5480.936 / 2438.936 Output Total 650 / 650 Balance 103.691 / 220.842 1220.936 / 1788.936 Weight 122.016 kg Constitutional Constitutional: no acute distress *Routine HEENT Exam Head: Present normocephalic Eye: Present EOMI and PERRL ENT: Present mucous membranes moist *Routine Neck Exam Neck: Present supple; Absent lymphadenopathy *Routine Respiratory Exam Respiratory: Present CTA bilaterally *Routine Cardiovascular Exam Cardiovascular: Present RRR *Routine Abdominal Exam Abdominal: Present soft and normoactive bowel sounds; Absent tenderness *Routine Extremities Exam Extremities: Absent cyanosis, clubbing or edema Comments: R upper thigh Catheter site is covered with dressing, no active bleeding noted *Routine Skin Exam Skin: Present warm; Absent rash *Routine Neurological Exam Neurological: Present alert and oriented X3 Assessment and Plan *Assessment and plan (1) Pulmonary embolism: Status: Acute Qualifiers: Pulmonary embolism type: saddle Chronicity: acute Acute cor pulmonale presence: with acute cor pulmonale Qualified Code(s): I26.02 - Saddle embolus of pulmonary artery with acute cor pulmonale Category: Medical Code(s): I26.99 - Other pulmonary embolism without acute cor pulmonale (2) HTN (hypertension): Status: Acute Category: Medical Code(s): I10 - Essential (primary) hypertension Plan Patient is a 63-year-old female with past medical history of hypertension hyperlipidemia hypothyroidism who presents to the hospital from outside facility due to pulmonary embolism. Cardiology was consulted from [facility], cardiology recommended to transfer the patient to [facility] for further evaluation and possible thrombectomy. At time of my evaluation patient denies chest pain shortness of breath nausea vomiting constipation dysuria fevers and chills. Assessment and plan Pulmonary embolism switched to Xarelto from heparin, hold due to bleeding Consult cardiology for potential thrombectomy Monitor on cardiac telemetry D-dimer checked at previous facility, elevated plan for JANINE per cardioloogy on tuesday potentially check INR in the morning, platelets, will need hematology work up as OP for coagulopathy Anemia of acute blood loss - s/p 2 packed red blood cell transfusions Monitor hemoglobin and hematocrit INR 3.75, will hold off of Xarelto for now Recheck INR Continue to hold pressure at catheter site Leukocytosis likely reactive Hypotension-check lactic acid, UA, check CT abd pelvis to rule out any infectious etiology, currently on Levophed, wean as tolerated Low threshold for starting IV antibiotics Hypertension Hyperlipidemia Hypothyroidism Resume home amlodipine, divalproex, buspirone, Neurontin, Seroquel DVT prophylaxis-on xarelto Cardiac cath report IMPRESSION Submassive saddle pulmonary embolism as described above Successful mechanical thrombectomy as described above the bilateral pulmonary arteries and main pulmonary Significant reduction in pulmonary artery systolic pressure from 50 mmHg to 25 mmHg Incidental left atrial thrombus identified by CTA which requires additional workup and evaluation PLAN 1. Xarelto 15 mg p.o. twice daily 2. Start Xarelto 15 mg this evening and 2 hours later discontinue heparin drip 3. Supportive care 4. CBC chemistry panel in the morning 5. I would like to obtain echocardiogram Tuesday to better evaluate right ventricular size and pressure 6. Consider JANINE Tuesday to better evaluate structure in the left atrial
[2023-07-17 16:00] LABS: Lactic Acid 1.6 mmol/L (0.7-2.1)
[2023-07-17] MEDS: CEFTRIAXONE 1 GM 1 GM in 0.9 % SODIUM CHLORIDE 50 ML IV (16:25)
[2023-07-17 17:01] LABS: POC Glucose,Bedside 127 (70-110)
--- NOTE | 2023-07-17 17:16 | PC.NURSE ---
No bleeding from groin site, pressure dressing in place. Bilateral pedal pulses palpable, strong. Lower extremities warm to touch. Levophed drip titrated to 14 but then increased to 22 mcg due to low blood pressures. Xarelto held this am per md due to inr and bleeding from cath site overnight. Lung sounds clear. Patient remained on 3LNC.
[2023-07-17] MEDS: ENOXAPARIN 120MG/0.8ML SYRINGE 120 MG SQ (21:01)
[2023-07-17] MEDS: DIVALPROEX SOD SPRINKLE 125MG CAPSULE 125 MG PO (21:01)
[2023-07-17] MEDS: QUETIAPINE 100MG TABLET 100 MG PO (21:01)
[2023-07-17] MEDS: NOREPINEPHRINE BITARTRATE/D5W 8 MG/250 ML PLAST..BAG 41.25 MG IV (21:04)
[2023-07-18] VITALS (26 sets, daily range): BP systolic 83–134; BP diastolic 46–64; PULSE 89–112; RESP 14–23; TEMP 36.8–37.4; O2SAT 94–99
[2023-07-18 01:42] LABS: Hematocrit 34.6 % (37.0-47.0)
[2023-07-18 01:47] LABS: Hemoglobin 11.3 g/dL (12.2-16.2)
[2023-07-18] MEDS: NOREPINEPHRINE BITARTRATE/D5W 8 MG/250 ML PLAST..BAG 56.25 MG IV ×3 (02:43→11:11)
[2023-07-18 05:47] LABS: Basophils # 0.1 K/mm3 (0-0.2); Basophils % 0.4 % (0.1-2.0); Eosinophils % 0.1 % (0.1-12.0); Hematocrit 33.6 % (37.0-47.0); Hemoglobin 11.2 g/dL (12.2-16.2); Lymphocytes # 4.1 K/mm3 (0.7-4.5); Lymphocytes % 22.6 % (10-50); Mean Corpuscular HGB Conc 33.4 g/dL (31.8-35.4); Mean Corpuscular Hemoglobin 30.8 pg (27.0-31.2); Mean Corpuscular Volume 92.2 fl (81-99); Mean Platelet Volume 9.3 fl (7.4-10.4); Monocytes # 1.3 K/mm3 (0.1-1.0); Monocytes % 7.2 % (1.7-9.3); Neutrophils # 12.7 K/mm3 (1.8-7.8); Neutrophils % 69.7 % (37.0-80.0); Platelet Count 151 K/mm3 (142-424); Red Blood Count 3.64 M/mm3 (4.20-5.40); Red Cell Distribution Width 16.1 % (11.5-17.5); White Blood Count 18.2 K/mm3 (4.8-10.8)
[2023-07-18 05:51] LABS: Chloride 110 mmol/L (98-107); Potassium 4.5 mmoL/L (3.5-5.1); Sodium 133 mmol/L (136-145)
[2023-07-18 05:54] LABS: Anion Gap 5.5 mEq/L (5-15); Blood Urea Nitrogen 20 mg/dl (7-17); Calcium 7.8 mg/dl (8.4-10.2); Carbon Dioxide 22 mmol/L (22.0-30.0); Creatinine Clearance Estimated 33 mL/min (50-200); Estimated Glomerular Filt Rate 41 ml/min (>60); GFR (African American) 50 ML/MIN (>60); Glucose 172 mg/dl (74-100)
[2023-07-18 05:56] LABS: INR 1.23 (0.9-1.1); Prothrombin Time 13.1 seconds (10.1-12.5)
--- NOTE | 2023-07-18 05:56 | PC.NURSE ---
@ 0240 [employer] NOTIFIED OF HYPOTENSION CONTINUING AND MAX DOSE OF LEVO GTT INFUSING
[2023-07-18 05:57] LABS: MANUAL DIFFERENTIAL MANUAL DIFFERENTIAL (MANUAL DIFF)
[2023-07-18 07:36] LABS: Lymphocytes % 23 % (10-50); Monocytes % 4 % (2-9); Neutrophils % 73 % (42-76); Nucleated Red Blood Cells 1; Platelet Estimate Normal; RBC Morphology Normal; Total Cells Counted 100
--- NOTE | 2023-07-18 08:00 | CT_ITS ---
FINAL REPORT TECHNIQUE: Axial images through the abdomen and pelvis were performed without contrast. This study was performed with techniques to keep radiation doses as low as reasonably achievable, (ALARA). Individualized dose reduction techniques using automated exposure control or adjustment of mA and/or kV according to the patient's size were employed. CLINICAL HISTORY: Abd pain / abscess/ cystitis COMPARISON: None FINDINGS: Abdomen: A small right pleural effusion is present along with right lower lobe atelectasis. There is artifact overlying the chest and upper abdomen secondary to the patient's arms remaining lowered. The liver parenchyma is homogeneous. There is vicarious excretion of contrast from the gallbladder. The spleen, pancreas, adrenals and kidneys are unremarkable. No upper abdominal abscess or inflammation is present. Pelvis: The urinary bladder is contracted and contains a Fabian catheter. The uterus is eccentric to the right. The appendix is not visualized. There is no pelvic mass or inflammation. IMPRESSION: No acute abnormality. Small right pleural effusion with right lower lobe atelectasis. Vicarious excretion of contrast from the gallbladder. Urinary bladder is contracted and contains a Fabian catheter. Reviewed, Interpreted and Dictated by Markie Huynh MD Transcribed by Onelia Rao Authenticated and [facility]
--- NOTE | 2023-07-18 08:03 | PC.NURSE ---
pt going off the floor to radiology with Brandy Vaca RN.
[2023-07-18] MEDS: FAMOTIDINE 20MG TABLET 10 MG PO (08:28)
[2023-07-18] MEDS: buPROPion HCl SR 150MG TAB 150 MG PO (08:28)
[2023-07-18] MEDS: ENOXAPARIN 120MG/0.8ML SYRINGE 120 MG SQ (08:29)
[2023-07-18] MEDS: DIVALPROEX SOD SPRINKLE 125MG CAPSULE 125 MG PO ×2 (08:29→20:06)
[2023-07-18] MEDS: BUSPIRONE HCL 5 MG TABLET 15 MG PO ×2 (08:29→20:07)
[2023-07-18] MEDS: LEVOTHYROXINE 75MCG (0.075MG) TAB 75 MCG PO (08:30)
[2023-07-18] MEDS: DEFINITY US ECHO CONTRAST 2ML INJ 2 MG IV (09:43)
[2023-07-18 10:15] LABS: Hemoglobin A1C 5.6 % (4.0-6.0)
--- NOTE | 2023-07-18 11:02 | ECG_ITS ---
APPROVED REPORT Exam: Resting ECG HR:104 bpm ECG Measurements Heart Rate 104 AXES AK 147 P 68 QRSd 91 QRS 62 QT 357 T 42 QTc 417 Conclusion SINUS TACHYCARDIA NONSPECIFIC T-WAVE ABNORMALITY ABNORMAL RHYTHM ECG UNCONFIRMED REPORT Electronically signed by : Chang Olivia MD 07/18/2023 17:36:41
[2023-07-18 12:00] LABS: POC Glucose,Bedside 153 (70-110)
--- NOTE | 2023-07-18 12:13 | PC.NURSE ---
spoke with Fabien Whiting in pharmacy, instructed to hold pt's Xarelto d/t kidney functioning.
--- NOTE | 2023-07-18 13:06 | P.CONCA_ITS ---
History of Present Illness History of Present Illness Consult date: 07/18/23 Requesting physician: Hollis Velasquez Consult reason: chest pain and shortness of breath Chief complaint: Pulmonary emboli Additional Medical History:: 1. Hypertension 2. Hyperlipidemia 3. Pulmonary embolus, 07/17/2023 4. New onset diabetes, 07/17/2023 History of present illness: Patient is a 63-year-old female with past medical history of hypertension hyperlipidemia hypothyroidism who presents to the hospital from outside facility due to pulmonary embolism. Cardiology was consulted from [facility], cardiology recommended to transfer the patient to [facility] for further evaluation and possible thrombectomy. At time of my evaluation patient denies chest pain shortness of breath nausea vomiting constipation dysuria fevers and chills. The above per Dr. Velasquez Patient confirms several day history of increasing shortness of breath to the point of going to the emergency department in [facility] for further evaluation. She was found to have bilateral pulmonary emboli and transferred for further evaluation. She did undergo right heart cath with removal of saddle pulmonary embolus by mechanical thrombectomy from both pulmonary arteries and main pulmonary artery. Pulmonary artery systolic pressure dropped from 50 mmHg to 25 mmHg post procedure. Concern for left atrial thrombus identified by CTA and will require further workup. Patient has been started on Lovenox and will be transition to Xarelto therapy. [facility] Disclaimer: The information contained in this section may have been updated after the patient was seen, as this information can be updated by other users. Social History (Updated 07/16/23 @ 17:13 by Hollis Velasquez MD) Smoking Status: Smoker, status unknown alcohol intake: never current occupational status: disabled Travel in the last 8 weeks: None Review of Systems Review of Systems Review of systems:: pertinent systems reviewed and negative unless documented below *Cardiovascular Cardiovascular: Reports dyspnea *Respiratory Respiratory: Reports dyspnea Exam Data for Last 24 hours Vital signs and Labs for Last 24 Hours: Temp Pulse Resp BP Pulse Ox O2 Del Method O2 Flow Rate 99.0 F 111 H 16 134/64 98 Nasal Cannula 3 07/18/23 04:00 07/18/23 13:04 07/18/23 13:04 07/18/23 13:04 07/18/23 13:04 07/18/23 13:04 07/18/23 13:04 FiO2 28 07/17/23 19:22 Laboratory Results - last 24 hr 07/17/23 15:40: Lactate 1.6 07/17/23 16:28: POC Glucose 127 H 07/18/23 01:30: Hgb 11.3 L D, Hct 34.6 L, Hemoglobin A1c 5.6 07/18/23 05:35: WBC 18.2 H, RBC 3.64 L, Hgb 11.2 L, Hct 33.6 L, MCV 92.2, MCH 30.8, MCHC 33.4, RDW 16.1, Plt Count 151, MPV 9.3, Neut % (Auto) 69.7, Lymph % (Auto) 22.6, [place] % (Auto) 7.2, Eos % (Auto) 0.1, Baso % (Auto) 0.4, Neut # (Auto) 12.7 H, Lymph # (Auto) 4.1, [place] # (Auto) 1.3 H, Eos # (Auto) 0.0, Baso # (Auto) 0.1, Total Counted 100, Neutrophils % (Manual) 73, Lymphocytes % (Manual) 23, Monocytes % (Manual) 4, Nucleated RBCs 1, Platelet Estimate Normal, RBC Morphology Normal, PT 13.1 H, INR 1.23 H, Sodium 133 L, Potassium 4.5, Chloride 110 H, Carbon Dioxide 22, Anion Gap 5.5, BUN 20 H, Creatinine 1.30 H, Estimated Creat Clear 33, Estimated GFR 41 L, Est GFR ( Amer) 50 L D, Glucose 172 H , Calcium 7.8 L 07/18/23 11:44: POC Glucose 153 H I & O for Last 24 hours: Intake & Output 07/16/23 07/17/23 07/18/23 07/19/23 11:59 11:59 11:59 11:59 Intake Total 2418.378 / 2418.378 5020.000 / 5229.938 209.938 / 209.938 Output Total 550 / 650 2200 / 2400 250 / 250 Balance 1868.378 / 1492.006 2691.000 / 2829.938 -40.062 / -40.062 Weight 268 lb 15.988 oz Constitutional Constitutional: no acute distress *Routine Respiratory Exam Respiratory: Present CTA bilaterally *Routine Cardiovascular Exam Cardiovascular: Present RRR *Routine Extremities Exam Extremities: Present edema Meds Home Medications and Allergies Home Medications Medication Instructions Recorded Confirmed Type amlodipine 10 mg tablet 10 mg PO DAILY 07/16/23 07/16/23 History bupropion HCl 150 mg 24 hr tablet, 150 mg PO DAILY 07/16/23 07/16/23 History extended release buspirone 15 mg tablet 15 mg PO TID 07/16/23 07/16/23 History divalproex 125 mg tablet,delayed 125 mg PO BID 07/16/23 07/16/23 History release ergocalciferol (vitamin D2) 1,250 1,250 mcg PO MONTHLY 07/16/23 07/16/23 History mcg (50,000 unit) capsule famotidine 40 mg tablet 40 mg PO DAILY 07/16/23 07/16/23 History gabapentin 300 mg capsule 300 mg PO Q12H 07/16/23 07/16/23 History levothyroxine 75 mcg tablet 75 mcg PO DAILYDM 07/16/23 07/16/23 History pravastatin 20 mg tablet 20 mg PO DAILY 07/16/23 07/16/23 History quetiapine 100 mg tablet 100 mg PO HS 07/16/23 07/16/23 History semaglutide 0.25 mg or 0.5 mg (2 0.5 mg SQ WEEKLY 07/16/23 07/16/23 History mg/3 mL) subcutaneous pen injector (Ozempic) New Prescriptions to Start Prescriptions: Allergies Allergy/AdvReac Type Severity Reaction Status Date / Time Penicillins Allergy Mild Verified 07/16/23 13:29 Assessment and Plan *Assessment and plan (1) Pulmonary embolism: Status: Acute Qualifiers: Acute cor pulmonale presence: with acute cor pulmonale Chronicity: acute Pulmonary embolism type: saddle Qualified Code(s): I26.02 - Saddle embolus of pulmonary artery with acute cor pulmonale Category: Medical Code(s): I26.99 - Other pulmonary embolism without acute cor pulmonale (2) HTN (hypertension): Status: Acute Qualifiers: Hypertension type: primary hypertension Qualified Code(s): I10 - Essential (primary) hypertension Category: Medical Code(s): I10 - Essential (primary) hypertension (3) Hyperosmolar hyperglycemic state (HHS): Status: Acute Category: Medical Code(s): E11.00 - Type 2 diabetes mellitus with hyperosmolarity without nonketotic hyperglycemic-hyperosmolar coma ([facility]) Plan 1. Submassive saddle pulmonary emboli status post mechanical thrombectomy -Switching from subcu Lovenox to Xarelto therapy 50 mg twice daily for 3 weeks then 20 mg daily thereafter -Check echocardiogram today -Plan for JANINE later this week to evaluate left atrial appendage 2. Hypertension -Currently requiring Levophed to maintain blood pressure 3. Hyperosmolar hyperglycemic state with no prior history of diabetes -Treatment per Dr. Velasquez 4. Hyperlipidemia -Continue statin therapy 5. Hemorrhage from right heart cath insertion site -transfused 2 units -Hgb stable now at 11 6. UTI with elevated white count peaked at 23,000 -antibiotics per Hospitalist 7. Hypothyroidism -On replacement therapy 8. CKD, stage II-III -Creatinine now 1.3 with GFR 41 on 07/18/2023 Continue current medications JANINE later this week.
[2023-07-18] MEDS: 0.9 % SODIUM CHLORIDE 1000ML 1,000 ML 100 ML IV ×2 (13:52→23:54)
[2023-07-18] MEDS: NOREPINEPHRINE BITARTRATE/D5W 8 MG/250 ML PLAST..BAG 28.129999999999999 MG IV (13:56)
--- NOTE | 2023-07-18 15:07 | EXP.PN ---
Subjective *Date: 07/18/23 *Time: 15:07 Interval history: patient is seen at bedside, no further bleeding form Pulmonary cath site, patient is alert and awake and holding conversations, denied CP, SOB, Abdominal pain Exam Data for Last 24 hours Vital signs and Labs for Last 24 Hours: Temp Pulse Resp BP Pulse Ox O2 Del Method O2 Flow Rate 98.6 F 98 H 18 102/55 L 95 Nasal Cannula 3 07/18/23 12:00 07/18/23 14:00 07/18/23 14:00 07/18/23 14:00 07/18/23 14:00 07/18/23 14:00 07/18/23 14:00 FiO2 28 07/17/23 19:22 Laboratory Results - last 24 hr 07/17/23 15:40: Lactate 1.6 07/17/23 16:28: POC Glucose 127 H 07/18/23 01:30: Hgb 11.3 L D, Hct 34.6 L, Hemoglobin A1c 5.6 07/18/23 05:35: WBC 18.2 H, RBC 3.64 L, Hgb 11.2 L, Hct 33.6 L, MCV 92.2, MCH 30.8, MCHC 33.4, RDW 16.1, Plt Count 151, MPV 9.3, Neut % (Auto) 69.7, Lymph % (Auto) 22.6, [place] % (Auto) 7.2, Eos % (Auto) 0.1, Baso % (Auto) 0.4, Neut # (Auto) 12.7 H, Lymph # (Auto) 4.1, [place] # (Auto) 1.3 H, Eos # (Auto) 0.0, Baso # (Auto) 0.1, Total Counted 100, Neutrophils % (Manual) 73, Lymphocytes % (Manual) 23, Monocytes % (Manual) 4, Nucleated RBCs 1, Platelet Estimate Normal, RBC Morphology Normal, PT 13.1 H, INR 1.23 H, Sodium 133 L, Potassium 4.5, Chloride 110 H, Carbon Dioxide 22, Anion Gap 5.5, BUN 20 H, Creatinine 1.30 H, Estimated Creat Clear 33, Estimated GFR 41 L, Est GFR ( Amer) 50 L D, Glucose 172 H, Calcium 7.8 L 07/18/23 11:44: POC Glucose 153 H I & O for Last 24 hours: Intake & Output 07/15/23 07/16/23 07/17/23 07/18/23 23:59 23:59 23:59 23:59 Intake Total 103.691 / 077.638 9383.437 / 5474.437 2293.323 / 2293.323 Output Total 850 / 850 2150 / 2150 Balance 103.691 / 782.733 4041.437 / 4624.437 143.323 / 143.323 Weight 122.016 kg Constitutional Constitutional: no acute distress *Routine HEENT Exam Head: Present normocephalic Eye: Present EOMI and PERRL ENT: Present mucous membranes moist *Routine Neck Exam Neck: Present supple; Absent lymphadenopathy *Routine Respiratory Exam Respiratory: Present CTA bilaterally *Routine Cardiovascular Exam Cardiovascular: Present RRR *Routine Abdominal Exam Abdominal: Present soft and normoactive bowel sounds; Absent tenderness *Routine Extremities Exam Extremities: Absent cyanosis, clubbing or edema Comments: R upper thigh Catheter site is covered with dressing, no active bleeding noted *Routine Skin Exam Skin: Present warm; Absent rash *Routine Neurological Exam Neurological: Present alert and oriented X3 Assessment and Plan *Assessment and plan (1) Pulmonary embolism: Status: Acute Qualifiers: Pulmonary embolism type: saddle Chronicity: acute Acute cor pulmonale presence: with acute cor pulmonale Qualified Code(s): I26.02 - Saddle embolus of pulmonary artery with acute cor pulmonale Category: Medical Code(s): I26.99 - Other pulmonary embolism without acute cor pulmonale (2) HTN (hypertension): Status: Acute Qualifiers: Hypertension type: primary hypertension Qualified Code(s): I10 - Essential (primary) hypertension Category: Medical Code(s): I10 - Essential (primary) hypertension Plan Patient is a 63-year-old female with past medical history of hypertension hyperlipidemia hypothyroidism who presents to the hospital from outside facility due to pulmonary embolism. Cardiology was consulted from [facility], cardiology recommended to transfer the patient to [facility] for further evaluation and possible thrombectomy. At time of my evaluation patient denies chest pain shortness of breath nausea vomiting constipation dysuria fevers and chills. Assessment and plan Pulmonary embolism switched to Xarelto from heparin, hold due to bleeding Consult cardiology for potential thrombectomy Monitor on cardiac telemetry D-dimer checked at previous facility, elevated plan for JANINE per cardioloogy on tuesday potentially check INR in the morning, platelets, will need hematology work up as OP for coagulopathy Target INR 2-3, cardiology started brdiging with lovenox on xarelto Anemia of acute blood loss - s/p 2 packed red blood cell transfusions Monitor hemoglobin and hematocrit ok to resume Xarelto for now Hb stable now Leukocytosis likely reactive Hypotension-check lactic acid, UA, check CT abd pelvis to rule out any infectious etiology, currently on Levophed, wean as tolerated Low threshold for starting IV antibiotics Hypertension Hyperlipidemia Hypothyroidism Resume home amlodipine, divalproex, buspirone, Neurontin, Seroquel DVT prophylaxis-on xarelto Plan for JANINE per cardiology Cardiac cath report IMPRESSION Submassive saddle pulmonary embolism as described above Successful mechanical thrombectomy as described above the bilateral pulmonary arteries and main pulmonary Significant reduction in pulmonary artery systolic pressure from 50 mmHg to 25 mmHg Incidental left atrial thrombus identified by CTA which requires additional workup and evaluation PLAN 1. Xarelto 15 mg p.o. twice daily 2. Start Xarelto 15 mg this evening and 2 hours later discontinue heparin drip 3. Supportive care 4. CBC chemistry panel in the morning 5. I would like to obtain echocardiogram Tuesday to better evaluate right ventricular size and pressure 6. Consider JANINE Tuesday to better evaluate structure in the left atrial
[2023-07-18] MEDS: CEFTRIAXONE 1 GM 1 GM in 0.9 % SODIUM CHLORIDE 50 ML IV (15:38)
--- NOTE | 2023-07-18 15:43 | CA_ITS ---
APPROVED REPORT EXAM: Comprehensive 2D, Doppler, and color-flow Echocardiogram [employer] Supervisor: Lori Steen CRT Ht: 5 ft 1 in Wt: 268lbs BSA: 2.14 BP: 98/53 mmHg Indications: saddle PE, thrombectomy 07/16/23, L atrial thrombus per CTA, HTN, HLD, obesity TDE very limited images d/t body habitus, pt on back for all images. Definity given Echo Enhancing Agent Indication: Rule out thrombus Agent(s) / Amount(s) Used: Definity 3 cc 2D Dimensions EF AP4 58.50 % GL Strain -22.0 % M-Mode Dimensions RVDd 3.22 cm (0.9-2.6) LA Diam 3.81 cm (1.9-4.0) LVDd 3.35 cm (3.5-5.7) LVDs 1.99 cm (3.5-5.7) IVSd 1.95 cm (0.6-1.1) PWd 1.02 cm (0.6-1.1) EF (Teich) 72.50% FS 40.60% EDV (Teich) 45.80 mL TAPSE 1.43 (<1.7) ESV (Teich) 12.60 mL LV Diastology E Decel Time 150 (160-240 msec) E/A Ratio 0.54 MED A' 13.40 cm/s LAT A' 8.20 cm/s Aortic Valve DEVEN Index 0.97 cm2/m2 AoV Peak Turner. 175.0 (50-130 cm/s) AO Peak GR. 12.30 mmHg AO Mean GR. 6.80 (<5 mmHg) AO VTI 25.1 (18-25 cm) DEVEN (VTI) 2.12 (2.5-4.5 cm2) Mitral Valve MV E Max Turner. 49.0 (40-130 cm/s) MV A Velocity 91.0 (40-130 cm/s) E/A Ratio 0.54 MV PHT 44.0 ms Pulmonary Valve PV Peak Velocity 117.0 (50-150 cm/s) Tricuspid Valve TR P. Velocity 258.00 cm/s RAP Estimate 10.00 mmHg RVSP 36.60 mmHg Left Ventricle The left ventricle is normal size. The left ventricular systolic function is hyperdynamic. There is increased overall thickness. No regional wall motion abnormalities are noted. Diastolic function is indeterminate. LVEF > 70%. Right Ventricle The right ventricle is moderately dilated. Right ventricle is mildly hypokinetic. Atria The left atrium size is normal. The right atrium size is normal. The interatrial septum is not well-visualized. Aortic Valve The aortic valve leaflets are not well-visualized. There is no aortic valvular stenosis. No aortic regurgitation is present. Mitral Valve The mitral valve leaflets are mildly thickened. No evidence of mitral valve stenosis. There is no mitral valve regurgitation noted. Tricuspid Valve The tricuspid valve leaflets are not well-visualized. Trace tricuspid regurgitation. There is insufficient TR jet to estimate RVSP. Pulmonic Valve The pulmonic valve is not well-visualized. Great Vessels The aortic root is not well-visualized. The IVC is not well-visualized. Pericardium There is no pericardial effusion. Other Information Study Quality: Technically Difficult Conclusion Technically difficult study due to poor acoustic windows. Hyperdynamic LV systolic function (LVEF > 70%). Moderate RV dilation with mild reduction in RV function. The valves are not well-evaluated due to technically difficult study. In the available images, no significant valvular stenosis or regurgitation is noted. Of note, the cardiology inpatient consult team was notified of the above findings in real-time during the acquisition of study images. Electronically signed by : Ericka Najera MD 07/20/2023 12:28:35
--- NOTE | 2023-07-18 17:56 | PC.NURSE ---
pt alert and oriented t/o shift. pt ls clear. pt on 3LNC. pt's has right IJ central lumen with Levo infusing currently at 10 mcg/min. pt has been able to be titrated down on drip t/o shift and tolerated well. pt did go down for ct abd/pelvis this shift. pt's diet advanced to 1999 ADA and has tolerated well. pt has not reported any nausea this shift. pt has f/c in place draining at bedside. at bedside. call light w/i reach.
[2023-07-18] MEDS: NOREPINEPHRINE BITARTRATE/D5W 8 MG/250 ML PLAST..BAG 18.75 MG IV (18:48)
[2023-07-18] MEDS: PRAVASTATIN 20MG TAB 20 MG PO (20:07)
[2023-07-18] MEDS: GABAPENTIN 300MG CAPSULE 300 MG PO (20:07)
[2023-07-18] MEDS: QUETIAPINE 100MG TABLET 100 MG PO (20:35)
[2023-07-18 21:17] LABS: POC Glucose,Bedside 132 (70-110)
[2023-07-18 21:17] LABS: POC Glucose,Bedside 147 (70-110)
[2023-07-19] VITALS (33 sets, daily range): BP systolic 95–168; BP diastolic 44–71; PULSE 84–110; RESP 13–20; TEMP 36.6–36.9; O2SAT 91–99; BMI 49.5
[2023-07-19 05:44] LABS: Basophils % 0.3 % (0.1-2.0); Eosinophils # 0.1 K/mm3 (0.0-0.4); Eosinophils % 0.6 % (0.1-12.0); Hematocrit 26.1 % (37.0-47.0); Lymphocytes # 2.1 K/mm3 (0.7-4.5); Lymphocytes % 20.5 % (10-50); Mean Corpuscular HGB Conc 33.5 g/dL (31.8-35.4); Mean Corpuscular Hemoglobin 31.1 pg (27.0-31.2); Mean Corpuscular Volume 92.9 fl (81-99); Mean Platelet Volume 8.7 fl (7.4-10.4); Monocytes # 0.8 K/mm3 (0.1-1.0); Monocytes % 7.4 % (1.7-9.3); Neutrophils # 7.3 K/mm3 (1.8-7.8); Neutrophils % 71.2 % (37.0-80.0); Platelet Count 103 K/mm3 (142-424); Red Blood Count 2.81 M/mm3 (4.20-5.40); Red Cell Distribution Width 16.1 % (11.5-17.5); White Blood Count 10.3 K/mm3 (4.8-10.8)
[2023-07-19 05:50] LABS: Hemoglobin 8.8 g/dL (12.2-16.2)
[2023-07-19 05:52] LABS: Chloride 116 mmol/L (98-107); Potassium 3.9 mmoL/L (3.5-5.1); Sodium 138 mmol/L (136-145)
[2023-07-19 05:55] LABS: Anion Gap 1.9 mEq/L (5-15); Blood Urea Nitrogen 12 mg/dl (7-17); Calcium 7.4 mg/dl (8.4-10.2); Carbon Dioxide 24 mmol/L (22.0-30.0); Chol/HDL Ratio 3.6 (1-3.5); Cholesterol 109 mg/dl (140-200); Creatinine Clearance Estimated 43 mL/min (50-200); Estimated Glomerular Filt Rate 63 ml/min (>60); GFR (African American) 77 ML/MIN (>60); Glucose 139 mg/dl (74-100); HDL Cholesterol 30 mg/dl (40-60); Triglycerides 121 mg/dl (30-150); VLDL Cholesterol 24 mg/dL (0-40)
[2023-07-19 06:06] LABS: Direct LDL Cholesterol 62.68 mg/dL (100-129)
[2023-07-19] MEDS: RIVAROXABAN 15MG TABLET 15 MG PO ×2 (06:44→17:04)
[2023-07-19] MEDS: LEVOTHYROXINE 75MCG (0.075MG) TAB 75 MCG PO (06:44)
--- NOTE | 2023-07-19 08:28 | P.PN_ITS ---
Subjective *Date: 07/19/23 *Time: 22:19 Interval history: Denies chest pain, hemoptysis, confusion. Currently on 3 L nasal cannula oxygen. Still requiring Levophed at 10 this morning. Maps maintaining above 65. Hemoglobin down today at 8.8. Medical Exam Vital signs and Labs for Last 24 Hours: Vital Signs Temp Pulse Pulse Resp BP Pulse Ox O2 Del Method 07/19/23 08:00 98.4 F 07/19/23 07:31 95 H 16 144/56 H 95 Nasal Cannula 07/19/23 06:13 Nasal Cannula 07/19/23 06:00 89 14 129/58 L 94 L Nasal Cannula 07/19/23 05:00 90 17 95/44 L 94 L Nasal Cannula 07/19/23 05:00 Nasal Cannula 07/19/23 04:00 Nasal Cannula 07/19/23 04:00 89 14 102/45 L 93 L Nasal Cannula 07/19/23 03:00 96 H 18 101/50 L 92 L 07/19/23 03:00 Nasal Cannula 07/19/23 02:00 92 H 18 98/49 L 93 L Nasal Cannula 07/19/23 01:00 Nasal Cannula 07/19/23 01:00 95 H 16 106/48 L 93 L Nasal Cannula 07/19/23 00:00 90 07/19/23 00:00 98.3 F 99 H 18 109/50 L 93 L Nasal Cannula 07/19/23 00:00 Nasal Cannula 07/18/23 23:00 98 H 18 113/47 L 94 L Nasal Cannula 07/18/23 23:00 Nasal Cannula 07/18/23 22:00 96 H 18 112/46 L 94 L Nasal Cannula 07/18/23 21:00 Nasal Cannula 07/18/23 21:00 94 H 23 89/46 L 94 L Nasal Cannula 07/18/23 20:00 89 07/18/23 20:00 Nasal Cannula 07/18/23 20:00 99.4 F 92 H 18 112/51 L 94 L Mechanical Ventilation 07/18/23 18:34 98 H 18 110/48 L 96 Nasal Cannula 07/18/23 18:34 Nasal Cannula 07/18/23 17:49 103 H 18 124/56 L 97 Nasal Cannula 07/18/23 16:59 96 H 18 116/50 L 95 Nasal Cannula 07/18/23 16:59 Nasal Cannula 07/18/23 16:00 90 07/18/23 16:00 98.2 F 07/18/23 16:00 95 H 18 120/53 L 95 Nasal Cannula 07/18/23 16:00 95 Nasal Cannula 07/18/23 15:00 93 H 18 126/56 L 99 Nasal Cannula 07/18/23 15:00 Nasal Cannula 07/18/23 14:00 98 H 18 102/55 L 95 Nasal Cannula 07/18/23 13:04 111 H 16 134/64 98 Nasal Cannula 07/18/23 12:48 97 H 17 119/54 L 97 Nasal Cannula 07/18/23 12:48 Nasal Cannula 07/18/23 12:00 100 H 07/18/23 12:00 98.6 F 07/18/23 12:00 102 H 18 125/58 L 96 Nasal Cannula 07/18/23 12:00 97 Nasal Cannula 07/18/23 11:59 100 H 16 124/60 97 Nasal Cannula 07/18/23 11:00 100 H 18 108/55 L 98 Room Air 07/18/23 11:00 Nasal Cannula 07/18/23 10:00 101 H 18 107/53 L 95 Nasal Cannula 07/18/23 09:00 100 H 18 115/55 L 95 Nasal Cannula 07/18/23 09:00 Nasal Cannula O2 Flow Rate FiO2 07/19/23 08:00 07/19/23 07:31 3 07/19/23 06:13 3 07/19/23 06:00 3 07/19/23 05:00 3 07/19/23 05:00 3 07/19/23 04:00 3 07/19/23 04:00 3 07/19/23 03:00 07/19/23 03:00 07/19/23 02:00 3 07/19/23 01:00 07/19/23 01:00 3 07/19/23 00:00 07/19/23 00:00 3 07/19/23 00:00 3 07/18/23 23:00 07/18/23 23:00 07/18/23 22:00 3 07/18/23 21:00 3 07/18/23 21:00 3 07/18/23 20:00 07/18/23 20:00 3 07/18/23 20:00 07/18/23 18:34 07/18/23 18:34 3 07/18/23 17:49 3 07/18/23 16:59 3 07/18/23 16:59 3 07/18/23 16:00 07/18/23 16:00 07/18/23 16:00 3 07/18/23 16:00 07/18/23 15:00 3 07/18/23 15:00 3 07/18/23 14:00 3 07/18/23 13:04 3 07/18/23 12:48 3 07/18/23 12:48 3 07/18/23 12:00 07/18/23 12:00 07/18/23 12:00 3 07/18/23 12:00 3 07/18/23 11:59 3 07/18/23 11:00 07/18/23 11:00 3 07/18/23 10:00 3 07/18/23 09:00 3 07/18/23 09:00 3 Intake and Output 07/18/23 07/19/23 07/19/23 23:59 07:59 15:59 Intake Total 864.895 / 3158.218 1250 / 1640 390 / 1640 Output Total 475 / 2625 1800 / 1800 0 / 1800 Balance 389.895 / 533.218 -550 / -160 390 / -160 Intake: Intake, Oral Amount 60 / 210 390 / 390 Intake, Other Amount 20 / 20 Intake, Total IV Amount 784.895 / 2928.218 1250 / 1250 0.9 % Sodium Chloride 1000ML 1, 479 / 479 1048 / 1048 000 ml @ 100 mls/hr IV .Q10H YOLI Rx#:[id number] Norepinephrine Bitartrate/D5w 8 174 / 1584 202 / 202 mg In 250 ml @ 26 MCG/MIN 48. 75 mls/hr IV .Q5H8M YOLI Rx#: [id number] Output: Output, Urine Amount 0 / 1000 0 / 0 0 / 0 Output, Urine Amount (Catheter) 475 / 1625 1800 / 1800 Fabian 475 / 1625 1800 / 1800 Other: Intake, Other Source Saline Solution Number of Unmeasured Voids 0 0 0 Weight 122.016 kg Patient Weight 07/19/23 23:59 Weight 122.016 kg Laboratory Results - last 24 hr 07/18/23 01:30: Hemoglobin A1c 5.6 07/18/23 11:44: POC Glucose 153 H 07/18/23 16:54: POC Glucose 132 H 07/18/23 21:10: POC Glucose 147 H 07/19/23 05:30: WBC 10.3 D, RBC 2.81 L, Hgb 8.8 L D, Hct 26.1 L, MCV 92.9, MCH 31.1, MCHC 33.5, RDW 16.1, Plt Count 103 L D, MPV 8.7, Neut % (Auto) 71.2, Lymph % (Auto) 20.5, [place] % (Auto) 7.4, Eos % (Auto) 0.6, Baso % (Auto) 0.3, Neut # (Auto) 7.3, Lymph # (Auto) 2.1, [place] # (Auto) 0.8, Eos # (Auto) 0.1, Baso # (Auto) 0.0, Sodium 138, Potassium 3.9, Chloride 116 H, Carbon Dioxide 24, Anion Gap 1.9 L, BUN 12 D, Creatinine 0.90 D, Estimated Creat Clear 43, Estimated GFR 63, Est GFR ( Amer) 77 D, Glucose 139 H, Calcium 7.4 L, T riglycerides 121, Cholesterol 109 L, LDL Cholesterol Direct 62.68 L, VLDL Cholesterol 24, HDL Cholesterol 30 L, Cholesterol/HDL Ratio 3.6 H I & O for Labs for Last 24 Hours: Intake & Output 07/16/23 07/17/23 07/18/23 07/19/23 23:59 23:59 23:59 23:59 Intake Total 103.691 / 813.223 9241.437 / 5474.437 3158.218 / 3158.218 1640 / 1640 Output Total 850 / 850 2625 / 2625 1800 / 1800 Balance 103.691 / 036.878 9350.437 / 4624.437 533.218 / 533.218 -160 / -160 Weight 122.016 kg 122.016 kg Constitutional: Present no acute distress, morbidly obese and chronically ill appearing Head: Present atraumatic and normocephalic ENT: Present normal exam Neck: Present normal inspection Respiratory: Present normal respiratory effort; Absent rhonchi, wheezes or crackles Cardiac: Present Reg Rate and Rhythm GI: Present normal bowel sounds; Absent tenderness Extremities: Present normal inspection, full ROM and edema (Trace bilateral lower extremity) Skin: Present intact; Absent erythema Comment:: Numerous bruises on arms Neuro: Present Grossly Intact, alert, awake, oriented x 3 and moves all extremities Assessment and Plan *Assessment and plan (1) Pulmonary embolism: Status: Acute Qualifiers: Pulmonary embolism type: saddle Chronicity: acute Acute cor pulmonale presence: with acute cor pulmonale Qualified Code(s): I26.02 - Saddle embolus of pulmonary artery with acute cor pulmonale Category: Medical Code(s): I26.99 - Other pulmonary embolism without acute cor pulmonale (2) HTN (hypertension): Status: Acute Qualifiers: Hypertension type: primary hypertension Qualified Code(s): I10 - Essential (primary) hypertension Category: Medical Code(s): I10 - Essential (primary) hypertension (3) CKD (chronic kidney disease) stage 2, GFR 60-89 ml/min: Status: Acute Category: Medical Code(s): N18.2 - Chronic kidney disease, stage 2 (mild) (4) Hypothyroidism: Status: Acute Category: Medical Code(s): E03.9 - Hypothyroidism, unspecified (5) UTI (urinary tract infection): Status: Acute Category: Medical Code(s): N39.0 - Urinary tract infection, site not specified (6) Hemorrhage: Status: Acute Category: Medical Code(s): R58 - Hemorrhage, not elsewhere classified Plan Patient is a 63-year-old female with past medical history of hypertension hyperlipidemia hypothyroidism who presents to the hospital from outside facility due to pulmonary embolism. Cardiology was consulted from [facility], cardiology recommended to transfer the patient to [facility] for further evaluation and possible thrombectomy. Patient doing better with no chest pain. Slowly weaning Levophed. Continue anticoagulation. Continues to require inpatient management. No bowel movement since admission. Problems addressed as follows: Pulmonary embolism - Discussed case with pulmonology today, continue treatment for PE. On Xarelto therapy 15 mg twice daily for 3 weeks, then 20 mg daily thereafter. - Formal echo pending. Possible JANINE later this week - wean Levophed as tolerated - Continue telemetry -Continue supplemental oxygen, wean as tolerated, currently on 3 L for sats greater than 90 -CBC, CMP, magnesium ordered for the morning. - electrolytes Stable with potassium 3.9. Creatinine 1.1. BUN 12. - DVT in right lower extremity at the popliteal. Left leg negative. on LE doppler UTI - Urine abnormal with leukocyte esterase, 3+ bacteria, 20-50 white cells. - Continue ceftriaxone 1 g daily. Urine culture pending Acute blood loss anemia -Hemoglobin 8.8 this morning, down to 10. Will transfuse 1 unit packed red blood cells goal hemoglobin greater than 9 - Has previously received 2 units since admission Leukocytosis: likely reactive, 10 the morning labs. Hypotension: goal MAP greater than 65, wean Levophed as tolerated. Neuropathy Mood disorder Hypothyroidism -Continue home divalproex, buspirone, Neurontin, Seroquel, levothyroxine 75 mcg daily DVT prophylaxis-on xarelto Full code Regular diet
[2023-07-19] MEDS: FAMOTIDINE 20MG TABLET 10 MG PO (09:05)
[2023-07-19] MEDS: buPROPion HCl SR 150MG TAB 150 MG PO (09:06)
[2023-07-19] MEDS: DIVALPROEX SOD SPRINKLE 125MG CAPSULE 125 MG PO ×2 (09:06→20:01)
[2023-07-19] MEDS: BUSPIRONE HCL 5 MG TABLET 15 MG PO ×2 (09:06→20:01)
[2023-07-19] MEDS: GABAPENTIN 300MG CAPSULE 300 MG PO ×2 (09:07→20:00)
--- NOTE | 2023-07-19 09:07 | EXP.CARD.PN ---
Subjective Subjective Date: 07/19/23 Time: 09:07 Principal diagnosis: PE Interval history: 63-year-old white female in bed in no acute distress. Continues to feel better. Is still apprehensive about proceeding with JANINE Remains on Levophed at 10 Right groin site looks good Hemoglobin has dwindled down to 8.8 today, discussed with Dr. Sargent and will transfuse 1 unit of blood Exam Data for Last 24 hours Vital signs and Labs for Last 24 Hours: Temp Pulse Resp BP Pulse Ox O2 Del Method O2 Flow Rate 98.4 F 97 H 15 104/47 L 94 L Nasal Cannula 3 07/19/23 08:00 07/19/23 08:00 07/19/23 08:00 07/19/23 08:00 07/19/23 08:00 07/19/23 08:00 07/19/23 08:00 FiO2 3 07/19/23 05:00 Laboratory Results - last 24 hr 07/18/23 01:30: Hemoglobin A1c 5.6 07/18/23 11:44: POC Glucose 153 H 07/18/23 16:54: POC Glucose 132 H 07/18/23 21:10: POC Glucose 147 H 07/19/23 05:30: WBC 10.3 D, RBC 2.81 L, Hgb 8.8 L D, Hct 26.1 L, MCV 92.9, MCH 31.1, MCHC 33.5, RDW 16.1, Plt Count 103 L D, MPV 8.7, Neut % (Auto) 71.2, Lymph % (Auto) 20.5, [place] % (Auto) 7.4, Eos % (Auto) 0.6, Baso % (Auto) 0.3, Neut # (Auto) 7.3, Lymph # (Auto) 2.1, [place] # (Auto) 0.8, Eos # (Auto) 0.1, Baso # (Auto) 0.0, Sodium 138, Potassium 3.9, Chloride 116 H, Carbon Dioxide 24, Anion Gap 1.9 L, BUN 12 D, Creatinine 0.90 D, Estimated Creat Clear 43, Estimated GFR 63, Est GFR ( Amer) 77 D, Glucose 139 H, Calcium 7.4 L, Triglycerides 121, Cholesterol 109 L, LDL Cholesterol Direct 62.68 L, VLDL Cholesterol 24, HDL Cholesterol 30 L, Cholesterol/HDL Ratio 3.6 H I & O for Last 24 hours: Intake & Output 07/16/23 07/17/23 07/18/23 07/19/23 11:59 11:59 11:59 11:59 Intake Total 2418.378 / 2418.378 5020.000 / 5229.938 2937.968 / 2937.968 Output Total 550 / 650 2200 / 2400 2525 / 2525 Balance 1868.378 / 7027.943 0287.000 / 2829.938 412.968 / 412.968 Weight 268 lb 15.988 oz 268 lb 15.423 oz Constitutional Constitutional: no acute distress *Routine Respiratory Exam Respiratory: Present CTA bilaterally *Routine Cardiovascular Exam Cardiovascular: Present RRR Progress Note: A&P Assessment and plan (1) Pulmonary embolism: Status: Acute (2) HTN (hypertension): Status: Acute (3) Hemorrhage: Status: Acute (4) Hyperosmolar hyperglycemic state (HHS): Status: Acute (5) UTI (urinary tract infection): Status: Acute (6) Hypothyroidism: Status: Acute (7) CKD (chronic kidney disease) stage 2, GFR 60-89 ml/min: Status: Acute Assessment and Plan Assessment and Plan for All Diagnoses:: 1. Submassive saddle pulmonary emboli status post mechanical thrombectomy -on Xarelto therapy 15 mg twice daily for 3 weeks then 20 mg daily thereafter -echo report pending -Plan for JANINE later this week to evaluate left atrial appendage 2. Hypertension -Currently requiring Levophed to maintain blood pressure 3. Hyperosmolar hyperglycemic state with no prior history of diabetes -Treatment per Dr. Sargent 4. Hyperlipidemia -Continue statin therapy 5. Hemorrhage from right heart cath insertion site -transfused 2 units already and will transfuse another today -Hgb stable now at 8.8 6. UTI with elevated white count peaked at 23,000 -antibiotics per Hospitalist 7. Hypothyroidism -On replacement therapy 8. CKD, stage II -Creatinine now 0.9 with GFR 63 Continue current medications Transfuse another unit of blood check venous doppler of legs Possible JANINE later this week.
[2023-07-19] MEDS: NOREPINEPHRINE BITARTRATE/D5W 8 MG/250 ML PLAST..BAG 18.75 MG IV (09:08)
[2023-07-19 11:21] LABS: POC Glucose,Bedside 135 (70-110)
--- NOTE | 2023-07-19 12:30 | CA_ITS ---
FINAL REPORT TECHNIQUE: Bilateral lower extremity venous duplex was performed with augmentation and compression. CLINICAL HISTORY: PE,LEG PAIN,OBESITY COMPARISON: None FINDINGS: There is visualized thrombus with partial flow in the right popliteal vein. The remainder of the deep veins of the bilateral lower extremities are negative for DVT or SVT. IMPRESSION: Positive partial deep venous thrombosis right popliteal vein. Left lower extremity negative for DVT. Reviewed, Interpreted and Dictated by Markie Huynh MD Transcribed by Kristen Queen Authenticated and [facility]
[2023-07-19] MEDS: POLYETHYLENE GLYCOL 3350 17 GM PACKET PO (14:17)
[2023-07-19] MEDS: SENNOSIDES 8.6MG/DOCUSATE 50MG TABLET 1 TAB PO ×2 (14:17→20:00)
--- NOTE | 2023-07-19 15:36 | PC.NURSE ---
1505 art line zeroed
[2023-07-19 15:38] LABS: Hematocrit 30.2 % (37.0-47.0)
[2023-07-19 15:48] LABS: Hemoglobin 10.3 g/dL (12.2-16.2)
[2023-07-19] MEDS: CEFTRIAXONE 1 GM 1 GM in 0.9 % SODIUM CHLORIDE 50 ML IV (17:05)
[2023-07-19 17:29] LABS: POC Glucose,Bedside 84 (70-110)
[2023-07-19] MEDS: QUETIAPINE 100MG TABLET 100 MG PO (20:00)
[2023-07-19] MEDS: PRAVASTATIN 20MG TAB 20 MG PO (20:01)
[2023-07-19 22:35] LABS: POC Glucose,Bedside 162 (70-110)
[2023-07-20] VITALS (15 sets, daily range): BP systolic 104–140; BP diastolic 59–78; PULSE 69–106; RESP 11–20; TEMP 36.7–37.1; O2SAT 90–99; BMI 49.5
[2023-07-20 06:05] LABS: POC Glucose,Bedside 79 (70-110)
[2023-07-20 06:47] LABS: Chloride 114 mmol/L (98-107); Potassium 4.1 mmoL/L (3.5-5.1); Sodium 140 mmol/L (136-145)
[2023-07-20 06:49] LABS: Blood Urea Nitrogen 10 mg/dl (7-17); Creatinine Clearance Estimated 43 mL/min (50-200); Estimated Glomerular Filt Rate 85 ml/min (>60); GFR (African American) 102 ML/MIN (>60)
[2023-07-20 06:50] LABS: Alanine Aminotransferase 41 U/L (12-78); Albumin Level 2.6 g/dl (3.5-5.0); Albumin/Globulin Ratio 1.1 (1.1-1.8); Alkaline Phosphatase 79 U/L (38-126); Anion Gap 4.1 mEq/L (5-15); Aspartate Amino Transferase 36 U/L (14-36); Bilirubin,Total 0.3 mg/dl (0.2-1.3); Carbon Dioxide 26 mmol/L (22.0-30.0); Globulin 2.4 g/dL (1.3-3.2); Glucose 94 mg/dl (74-100); Magnesium 2.2 mg/dl (1.6-2.3)
[2023-07-20 06:53] LABS: Basophils % 0.2 % (0.1-2.0); Eosinophils # 0.1 K/mm3 (0.0-0.4); Eosinophils % 1.3 % (0.1-12.0); Hematocrit 31.1 % (37.0-47.0); Hemoglobin 10.1 g/dL (12.2-16.2); Lymphocytes # 1.7 K/mm3 (0.7-4.5); Mean Corpuscular HGB Conc 32.6 g/dL (31.8-35.4); Mean Corpuscular Hemoglobin 31.9 pg (27.0-31.2); Mean Platelet Volume 8.7 fl (7.4-10.4); Monocytes # 0.5 K/mm3 (0.1-1.0); Monocytes % 6.4 % (1.7-9.3); Neutrophils # 5.2 K/mm3 (1.8-7.8); Neutrophils % 69.1 % (37.0-80.0); Platelet Count 96 K/mm3 (142-424); Red Blood Count 3.17 M/mm3 (4.20-5.40); Red Cell Distribution Width 16.5 % (11.5-17.5); White Blood Count 7.6 K/mm3 (4.8-10.8)
--- NOTE | 2023-07-20 08:10 | P.PN_ITS ---
Subjective Subjective Date: 07/20/23 Time: 08:11 Principal diagnosis: PE, DVT Interval history: 63-year-old white female in bed in no acute distress. Breathing continues to improve. Anxious to go home. Exam Data for Last 24 hours Vital signs and Labs for Last 24 Hours: Temp Pulse Resp BP Pulse Ox O2 Del Method O2 Flow Rate 98.2 F 93 H 20 138/66 91 L Room Air 1 07/20/23 07:57 07/20/23 07:00 07/20/23 07:00 07/20/23 07:00 07/20/23 07:00 07/20/23 07:00 07/20/23 03:00 FiO2 3 07/19/23 05:00 Laboratory Results - last 24 hr 07/16/23 18:48: Blood Type A Positive, Antibody Screen Negative, Crossmatch (AHG) See Detail 07/19/23 11:14: POC Glucose 135 H 07/19/23 15:28: Hgb 10.3 L D, Hct 30.2 L 07/19/23 17:03: POC Glucose 84 07/19/23 22:25: POC Glucose 162 H 07/20/23 05:57: POC Glucose 79 07/20/23 06:10: WBC 7.6 D, RBC 3.17 L, Hgb 10.1 L, Hct 31.1 L, MCV 98.0, MCH 31.9 H, MCHC 32.6, RDW 16.5, Plt Count 96 L, MPV 8.7, Neut % (Auto) 69.1, Lymph % (Auto) 23.0, [place] % (Auto) 6.4, Eos % (Auto) 1.3, Baso % (Auto) 0.2, Neut # (Auto) 5.2, Lymph # (Auto) 1.7, [place] # (Auto) 0.5, Eos # (Auto) 0.1, Baso # (Auto) 0.0, Sodium 140, Potassium 4.1, Chloride 114 H, Carbon Dioxide 26, Anion Gap 4.1 L, BUN 10, Creatinine 0.70 D, Estimated Creat Clear 43, Estimated GFR 85, Est GFR ( Amer) 102 D, Glucose 94, Calcium 8.0 L, Magnesium 2.2 D, Total Bilirubin 0.3, AST 36, ALT 41, Alkaline Phosphatase 79, Total Protein 5.0 L, Albumin 2.6 L, Globulin 2.4, Albumin/Globulin Ratio 1.1 I & O for Last 24 hours: Intake & Output 07/17/23 07/18/23 07/19/23 07/20/23 11:59 11:59 11:59 11:59 Intake Total 2418.378 / 2418.378 5020.000 / 5229.938 3396.855 / 3396.855 1579.063 / 1579.063 Output Total 550 / 650 2200 / 2400 3275 / 3275 2075 / 2075 Balance 1868.378 / 4891.707 6712.000 / 2829.938 121.855 / 121.855 -495.937 / -4 95.937 Weight 268 lb 15.988 oz 268 lb 15.423 oz 268 lb 15.423 oz Constitutional Constitutional: no acute distress *Routine Respiratory Exam Respiratory: Present CTA bilaterally *Routine Cardiovascular Exam Cardiovascular: Present RRR Progress Note: A&P Assessment and plan (1) Pulmonary embolism: Status: Acute (2) HTN (hypertension): Status: Acute (3) CKD (chronic kidney disease) stage 2, GFR 60-89 ml/min: Status: Acute (4) Hypothyroidism: Status: Acute (5) UTI (urinary tract infection): Status: Acute (6) Hemorrhage: Status: Acute (7) DVT (deep venous thrombosis): Status: Acute Assessment and Plan Assessment and Plan for All Diagnoses:: 1. Submassive saddle pulmonary emboli status post mechanical thrombectomy -on Xarelto therapy 15 mg twice daily (started 07/18/23) for 3 weeks then 20 mg daily thereafter -echo report pending -Plan outpatient JANINE -Right popliteal DVT 2. Hypertension -Off pressors 3. Hyperosmolar hyperglycemic state with no prior history of diabetes -Treatment per Dr. Sargent 4. Hyperlipidemia -Continue statin therapy 5. Hemorrhage from right heart cath insertion site -transfused 3 units -Hgb stable now at 10.1 6. UTI with elevated white count peaked at 23,000 -antibiotics per Hospitalist 7. Hypothyroidism -On replacement therapy 8. CKD, stage II -Creatinine now 0.7, GFR 85 Continue current medications Ambulate today and possibly home later today. Home meds: Xarelto 15 mg twice daily for 3 weeks then reduce to 20 mg daily Pravastatin 20 mg daily Hold amlodipine for now and monitor blood pressure at home Follow-up in our office in 1 week.
--- NOTE | 2023-07-20 08:11 | EXP.PHA.PN ---
Subjective *Date: 07/20/23 *Time: 08:11 Medical Exam Vital signs and Labs for Last 24 Hours: Vital Signs Temp Pulse Pulse Pulse Resp BP BP 07/20/23 07:57 98.2 F 07/20/23 07:00 93 H 20 138/66 07/20/23 06:56 07/20/23 06:00 96 H 17 127/67 07/20/23 05:00 07/20/23 05:00 98.7 F 80 16 140/67 07/20/23 04:00 77 07/20/23 04:00 98.7 F 07/20/23 04:00 69 11 L 117/59 L 07/20/23 03:00 07/20/23 03:00 69 11 L 121/61 07/20/23 02:00 69 11 L 122/60 07/20/23 01:00 07/20/23 00:00 84 07/20/23 00:00 98.6 F 85 18 106/65 L 07/20/23 00:00 07/19/23 23:00 87 16 132/65 07/19/23 23:00 07/19/23 22:00 92 H 16 122/70 07/19/23 21:00 07/19/23 21:00 97.8 F 90 14 143/70 H 07/19/23 20:00 92 H 07/19/23 20:00 97.8 F 07/19/23 19:27 07/19/23 19:00 87 20 105/59 L 07/19/23 19:00 07/19/23 18:00 98 H 17 136/64 07/19/23 17:00 95 H 16 168/71 H 07/19/23 17:00 07/19/23 16:00 92 H 07/19/23 16:00 94 H 18 145/65 H 07/19/23 16:00 90 07/19/23 15:37 07/19/23 15:21 98.2 F 07/19/23 15:20 98.4 F 97 H 16 160/68 H 07/19/23 14:20 98.0 F 93 H 18 142/55 H 07/19/23 14:00 98.2 F 95 H 19 136/54 L 07/19/23 13:17 07/19/23 13:00 98.4 F 89 18 134/58 L 07/19/23 13:00 95 H 16 134/58 L 07/19/23 12:45 98.2 F 89 16 137/58 L 07/19/23 12:30 98.2 F 91 H 18 137/61 07/19/23 12:15 98.1 F 88 14 99/64 L 07/19/23 12:10 98.1 F 87 16 118/60 07/19/23 12:05 98.3 F 92 H 19 97/63 L 07/19/23 12:00 90 07/19/23 12:00 96 H 07/19/23 12:00 98.3 F 89 16 112/52 L 07/19/23 11:40 98.3 F 87 13 107/52 L 07/19/23 11:15 07/19/23 11:00 84 14 115/51 L 07/19/23 10:00 92 H 16 106/51 L 07/19/23 09:00 07/19/23 09:00 103 H 16 112/49 L 07/19/23 08:20 92 H Pulse Ox O2 Del Method O2 Flow Rate 07/20/23 07:57 07/20/23 07:00 91 L Room Air 07/20/23 06:56 Room Air 07/20/23 06:00 90 L Room Air 07/20/23 05:00 Room Air 07/20/23 05:00 99 Room Air 07/20/23 04:00 07/20/23 04:00 07/20/23 04:00 97 Room Air 07/20/23 03:00 Nasal Cannula 07/20/23 03:00 94 L Room Air 1 07/20/23 02:00 95 Nasal Cannula 1 07/20/23 01:00 Nasal Cannula 1 07/20/23 00:00 07/20/23 00:00 95 Nasal Cannula 1 07/20/23 00:00 Nasal Cannula 1 07/19/23 23:00 99 Nasal Cannula 1 07/19/23 23:00 Nasal Cannula 1 07/19/23 22:00 93 L Nasal Cannula 1 07/19/23 21:00 Nasal Cannula 1 07/19/23 21:00 94 L Nasal Cannula 1 07/19/23 20:00 07/19/23 20:00 07/19/23 19:27 Nasal Cannula 3 07/19/23 19:00 91 L Nasal Cannula 1 07/19/23 19:00 Nasal Cannula 1 07/19/23 18:00 94 L Nasal Cannula 1 07/19/23 17:00 93 L Room Air 07/19/23 17:00 Room Air 07/19/23 16:00 95 Room Air 07/19/23 16:00 92 L Room Air 07/19/23 16:00 07/19/23 15:37 Nasal Cannula 07/19/23 15:21 07/19/23 15:20 98 07/19/23 14:20 97 07/19/23 14:00 97 07/19/23 13:17 Nasal Cannula 3 07/19/23 13:00 97 07/19/23 13:00 97 Nasal Cannula 3 07/19/23 12:45 97 07/19/23 12:30 96 07/19/23 12:15 94 L 07/19/23 12:10 94 L 07/19/23 12:05 95 07/19/23 12:00 07/19/23 12:00 94 L Nasal Cannula 3 07/19/23 12:00 95 07/19/23 11:40 95 07/19/23 11:15 Nasal Cannula 3 07/19/23 11:00 95 Nasal Cannula 3 07/19/23 10:00 94 L Nasal Cannula 3 07/19/23 09:00 Nasal Cannula 07/19/23 09:00 93 L Nasal Cannula 3 07/19/23 08:20 94 L Nasal Cannula 3 Intake and Output 07/19/23 07/20/23 07/20/23 23:59 07:59 15:59 Intake Total 710 / 3197.950 220 / 580 360 / 580 Output Total 700 / 3700 975 / 975 Balance 10 / -502.050 -755 / -395 360 / -395 Intake: Intake, Oral Amount 710 / 1370 220 / 580 360 / 580 Output: Output, Urine Amount 650 / 1800 675 / 675 Output, Urine Amount (Catheter) 50 / 1900 300 / 300 Fabian 50 / 1900 300 / 300 Other: Number of Unmeasured Voids 1 0 Weight 122 kg Patient Weight 07/20/23 23:59 Weight 122 kg Laboratory Results - last 24 hr 07/16/23 18:48: Blood Type A Positive, Antibody Screen Negative, Crossmatch (AHG) See Detail 07/19/23 11:14: POC Glucose 135 H 07/19/23 15:28: Hgb 10.3 L D, Hct 30.2 L 07/19/23 17:03: POC Glucose 84 07/19/23 22:25: POC Glucose 162 H 07/20/23 05:57: POC Glucose 79 07/20/23 06:10: WBC 7.6 D, RBC 3.17 L, Hgb 10.1 L, Hct 31.1 L, MCV 98.0, MCH 31.9 H, MCHC 32.6, RDW 16.5, Plt Count 96 L, MPV 8.7, Neut % (Auto) 69.1, Lymph % (Auto) 23.0, [place] % (Auto) 6.4, Eos % (Auto) 1.3, Baso % (Auto) 0.2, Neut # (Auto) 5.2, Lymph # (Auto) 1.7, [place] # (Auto) 0.5, Eos # (Auto) 0.1, Baso # (Auto) 0.0, Sodium 140, Potassium 4.1, Chloride 114 H, Carbon Dioxide 26, Anion Gap 4.1 L, BUN 10, Creatinine 0.70 D, Estimated Creat Clear 43, Estimated GFR 85, Est GFR ( Amer) 102 D, Glucose 94, Calcium 8.0 L, Magnesium 2.2 D, Total Bilirubin 0.3, AST 36, ALT 41, Alkaline Phosphatase 79, Total Protein 5.0 L, Albumin 2.6 L, Globulin 2.4, Albumin/Globulin Ratio 1.1 I & O for Labs for Last 24 Hours: Intake & Output 07/17/23 07/18/23 07/19/23 07/20/23 23:59 23:59 23:59 23:59 Intake Total 5474.437 / 5474.437 3158.218 / 3158.218 3097.950 / 3197.950 580 / 580 Output Total 850 / 850 2625 / 2625 3650 / 3700 975 / 975 Balance 4624.437 / 4624.437 533.218 / 533.218 -552.050 / -502.050 -395 / -395 Weight 122 kg 122 kg The patient's infection will respond to the chosen ABx?: Yes (BLOOD AND URINE CULTURES PENDING, WHITE COUT 7.6, AFEBRILE OVER 24 HR.) Is the patient receiving the right drug, dose, and route?: Yes Could a more targeted ABx be ordered?: No
[2023-07-20] MEDS: GABAPENTIN 300MG CAPSULE 300 MG PO ×2 (08:58→20:41)
[2023-07-20] MEDS: RIVAROXABAN 15MG TABLET 15 MG PO ×2 (08:58→16:37)
[2023-07-20] MEDS: DIVALPROEX SOD SPRINKLE 125MG CAPSULE 125 MG PO ×2 (08:58→20:41)
[2023-07-20] MEDS: SENNOSIDES 8.6MG/DOCUSATE 50MG TABLET 1 TAB PO ×2 (08:58→20:41)
[2023-07-20] MEDS: FAMOTIDINE 20MG TABLET 10 MG PO (08:58)
[2023-07-20] MEDS: BUSPIRONE HCL 5 MG TABLET 15 MG PO ×2 (08:58→20:41)
[2023-07-20] MEDS: buPROPion HCl SR 150MG TAB 150 MG PO (08:58)
[2023-07-20] MEDS: LEVOTHYROXINE 75MCG (0.075MG) TAB 75 MCG PO (08:58)
[2023-07-20 11:25] LABS: POC Glucose,Bedside 109 (70-110)
--- NOTE | 2023-07-20 12:06 | PC.NURSE ---
Dressing removed from arterial line and site cleansed with chlorahexadine. Arterial line removed at 1005. Pressure held until homeostasis achieved. No bleeding noted. Neosporin applied, telfa pad and tegaderm used for dressing. Pulses strong.
--- NOTE | 2023-07-20 13:31 | PC.NURSE ---
art line zeroed at 0720
--- NOTE | 2023-07-20 13:43 | HMH.PTEV ---
Physical Therapy Evaluation Rehab PT IP Evaluation Start: 07/20/23 11:07 Freq: ONCE Status: Active Protocol: Document 07/20/23 13:36 JOSEPH (Rec: 07/20/23 13:43 JOSEPH [email or web address]) Subjective/History History History Per H&P: Patient is a 63-year-old female with past medical history of hypertension hyperlipidemia hypothyroidism who presents to the hospital from outside facility due to pulmonary embolism. Cardiology was consulted from [facility], cardiology recommended to transfer the patient to [facility] for further evaluation and possible thrombectomy. At time of my evaluation patient denies chest pain shortness of breath nausea vomiting constipation dysuria fevers and chills. Subjective Subjective PLOF per pt report: Lives with and younger son in single-story home with 1 RIVER. Ambulated with assistance as needed by . works during the day and pt reports she was able to transfer and amb short distances independently. Pt is home alone during the day. No AD use but owns a rollator. Not driving prior to admission . New diagnosis of cancer in past 12 No months? Rehab PT IP Eval Objective Appearance Patient Behavior Appropriate,Cooperative Patient Orientation Person,Situation Difficulty following instructions none Speech Pattern Clear Ambulation Patient Able to Ambulate Yes Ambulation Observation IP General Gait Pattern Observation Wide Based Gait Ambulation Distance (feet) 5 Ambulation Assistive Device None Ambulation Ability Minimal x 1 (25% assist) Balance Ability to Arise Able, uses arms to help Sitting Balance Steady, safe Standing Balance Steady, wide stance Transfers Bed Transfer Ability Moderate x 1 (50% assist) Sit to Stand Bed Transfer Ability Contact Guard/Hand Hold Rehab PT IP prob,goals,plan Problems Date of Evaluation: 07/20/23 PT IP Problems Bed Mobility,Transfers,Gait, Balance,Self care,Safety Rehab Potential Rehab Potential Good Equipment Needs Assistive Devices Rolling / Wheeled Walker Plan PT Intervention Plan Bed Mobility,Transfers,Gait, Balance,Self care,Safety Other Intervention Plan 1-2 times PT Plan Frequency Daily Duration LOS Discharge Goals Bed Transfer Ability Minimal x 1 (25% assist) Sit to Stand Chair Transfer Ability Supervision/Stand by Ambulation Assistive Device Rolling Walker Ambulation Distance (feet) 10 Discharge Plan PT Discharge Plan Initial physical therapy evaluation performed. Patient presents below baseline in functional mobility, gait, transfers, and strength. At this time, pt not safe to return home d/t current level of functional mobility and being home alone during the day. PT recommending short- term rehabilitation stay upon d/c from [facility]. Pt would benefit from skilled PT while at [facility] to prevent further functional decline and maximize safety with mobility. Eval Complexity Eval Charge Codes 25652 - Moderate Complexity PHYSICIAN CERTIFICATION: I certify the specified therapy services for Amie [place] are required, authorized, and reviewed every 30 days.
--- NOTE | 2023-07-20 13:47 | HMH.OTEV ---
OT Inpatient Evaluation Rehab OT IP Evaluation Start: 07/20/23 11:07 Freq: ONCE Status: Active Protocol: Document 07/20/23 13:40 MALI (Rec: 07/20/23 13:47 MALI [id number]) Rehab OT IP Assessment Subjective History Patient is a 63-year-old female with past medical history of hypertension hyperlipidemia hypothyroidism who presents to the hospital from outside facility due to pulmonary embolism. Cardiology was consulted from [facility], cardiology recommended to transfer the patient to & for further evaluation and possible thrombectomy. At time of my evaluation patient denies chest pain shortness of breath nausea vomiting constipation dysuria fevers and chills. Patient lives at home with . 1 story home with 1-2 RIVER. works during the day. Patient is at home alone . Subjective I can sit up. Instructed Patient on proper handn and foot placement to complete bed mobility from supine->sit @ EOB with needing Mod A. Patient sat up @ EOB independently. Instructed Patient on proper hand and foot placement to complete sit->stand transfer with Min A x2. Patient stood < 30 secs with needing to sit back at EOB due to weakness. Objective Patient Orientation Person Right Upper Extremity Gross ROM WFL Left Upper Extremity Gross ROM WFL Bed Mobility bed mobility - supine/sit Assist Level Moderate x 1 (50% assist) Transfer Training Sit/Stand Transfer Assist Level Minimal x 2 (25% assist) Rehab OT IP prob,goals,plan Problems Date of Evaluation: 07/20/23 OT IP Problems Bed Mobility,Transfers,Balance ,Self care,Safety Rehab Potential Rehab Potential Good Equipment Needs Assistive Devices Rolling / Wheeled Walker Plan OT intervention Plan Bed Mobility,Transfers,Balance ,Self care,Safety,Therapeutic Exercise OT Plan Frequency Daily Duration LOS Discharge Goals Bed Mobility Ability Assistance x1 Sit to Stand Chair Transfer Ability Minimal x 1 (25% assist) Chair Transfer Ability Minimal x 1 (25% assist) Chair Transfer Technique Sit to/from Ambulatory Discharge Plan OT Discharge Plan Recommend short term placement at this time in order to improve independence, safety and overall general strength prior to returning home. Patient will continue skilled IP OT services while here at [facility]. Eval Complexity Eval Charge Codes 65273 - Low Complexity PHYSICIAN CERTIFICATION: I certify the specified therapy services for Amie [place] are required, authorized, and reviewed every 30 days.
[2023-07-20] MEDS: CEFTRIAXONE 1 GM 1 GM in 0.9 % SODIUM CHLORIDE 50 ML IV (15:35)
--- NOTE | 2023-07-20 15:45 | CARE MANAGER ---
Addendum entered by [facility] 07/25/23 08:38: Katie bhatt/ [facility] stated that services will start tomorrow for this patient 07/26/23. Addendum entered by [facility] 07/22/23 14:53: Patient information/order has been faxed to [facility]. Addendum entered by [facility] 07/22/23 11:37: Patient and prefer to return home w/ home health services at this time. Patient has requested a rolling walker from [facility]. Patient is also agreeable to home health services and does not have a preference. Patient will discharge home today. I will set up home health services. Addendum entered by Dayana Alva RN 07/21/23 11:53: Spoke with therapy and MD. They believe if patient can go home with 24 hr assistance that would be acceptable. Patient states this is not possible so placement is still necessary. Addendum entered by Dayana Alva RN 07/20/23 16:39: They wanted home health to come, but weren't aware therapy doesn't come every day. Will follow up with patient after we hear from [facility]. Addendum entered by Dayana Alva RN 07/20/23 16:39: Spoke with patient and she has no interest in going anywhere but [facility]. Original Note: Dr. Sargent called and stated therapy said patient will need short term rehab. Spoke with patient and family. They are willing to go to [facility], but couldn't come up with a second choice at this time. Will have one available later today or in the morning. Information sent to [facility].
[2023-07-20 16:38] LABS: POC Glucose,Bedside 133 (70-110)
--- NOTE | 2023-07-20 17:52 | PC.NURSE ---
Arterial and central lines removed. Patient tolerating well. VS stable. Patient on RA. Groin site C/D/I. Lung sounds clear bilaterally. Purwick in place. No other complaints.
--- NOTE | 2023-07-20 18:24 | ECG_ITS ---
APPROVED REPORT Exam: Resting ECG HR:108 bpm ECG Measurements Heart Rate 108 AXES CA 143 P 57 QRSd 105 QRS 55 QT 322 T -5 QTc 385 Conclusion SINUS TACHYCARDIA LOW QRS VOLTAGE IN PRECORDIAL LEADS [QRS DEFLECTION < 1.0 mV IN CHEST LEADS] POSSIBLE LATERAL MYOCARDIAL INFARCTION , PROBABLY OLD [30 ms Q WAVE IN I/aVL/V5/V6] ABNORMAL RHYTHM ECG UNCONFIRMED REPORT Electronically signed by : Chang Olivia MD 07/21/2023 15:55:14
--- NOTE | 2023-07-20 18:43 | P.PN_ITS ---
Subjective *Date: 07/20/23 *Time: 23:12 Interval history: Patient feeling better and on room air. Feels quite weak however this morning. Evaluated by therapy, unable to ambulate independently. Not safe to discharge home, would benefit from rehab. Denies any chest pain. No cough. Still not had a bowel movement but passing gas. Medical Exam Vital signs and Labs for Last 24 Hours: Vital Signs Temp Pulse Pulse Resp BP Pulse Ox O2 Del Method 07/20/23 18:36 Room Air 07/20/23 16:43 Room Air 07/20/23 16:00 60 07/20/23 15:29 98.6 F 99 H 18 139/78 98 Room Air 07/20/23 14:42 Room Air 07/20/23 12:42 Room Air 07/20/23 12:00 100 H 07/20/23 11:41 98.4 F 92 H 20 124/70 92 L Room Air 07/20/23 11:00 Room Air 07/20/23 10:00 97 H 20 104/61 L 97 Room Air 07/20/23 09:00 98.1 F 102 H 17 118/62 93 L Room Air 07/20/23 09:00 Room Air 07/20/23 08:00 100 H 07/20/23 08:00 Room Air 07/20/23 07:57 98.2 F 07/20/23 07:00 93 H 20 138/66 91 L Room Air 07/20/23 06:56 Room Air 07/20/23 06:00 96 H 17 127/67 90 L Room Air 07/20/23 05:00 Room Air 07/20/23 05:00 98.7 F 80 16 140/67 99 Room Air 07/20/23 04:00 77 07/20/23 04:00 98.7 F 07/20/23 04:00 69 11 L 117/59 L 97 Room Air 07/20/23 03:00 Nasal Cannula 07/20/23 03:00 69 11 L 121/61 94 L Room Air 07/20/23 02:00 69 11 L 122/60 95 Nasal Cannula 07/20/23 01:00 Nasal Cannula 07/20/23 00:00 84 07/20/23 00:00 98.6 F 85 18 106/65 L 95 Nasal Cannula 07/20/23 00:00 Nasal Cannula 07/19/23 23:00 87 16 132/65 99 Nasal Cannula 07/19/23 23:00 Nasal Cannula 07/19/23 22:00 92 H 16 122/70 93 L Nasal Cannula 07/19/23 21:00 Nasal Cannula 07/19/23 21:00 97.8 F 90 14 143/70 H 94 L Nasal Cannula 07/19/23 20:00 92 H 07/19/23 20:00 97.8 F 07/19/23 19:27 Nasal Cannula 07/19/23 19:00 87 20 105/59 L 91 L Nasal Cannula 07/19/23 19:00 Nasal Cannula O2 Flow Rate 07/20/23 18:36 07/20/23 16:43 07/20/23 16:00 07/20/23 15:29 07/20/23 14:42 07/20/23 12:42 07/20/23 12:00 07/20/23 11:41 07/20/23 11:00 07/20/23 10:00 07/20/23 09:00 07/20/23 09:00 07/20/23 08:00 07/20/23 08:00 07/20/23 07:57 07/20/23 07:00 07/20/23 06:56 07/20/23 06:00 07/20/23 05:00 07/20/23 05:00 07/20/23 04:00 07/20/23 04:00 07/20/23 04:00 07/20/23 03:00 07/20/23 03:00 1 07/20/23 02:00 1 07/20/23 01:00 1 07/20/23 00:00 07/20/23 00:00 1 07/20/23 00:00 1 07/19/23 23:00 1 07/19/23 23:00 1 07/19/23 22:00 1 07/19/23 21:00 1 07/19/23 21:00 1 07/19/23 20:00 07/19/23 20:00 07/19/23 19:27 3 07/19/23 19:00 1 07/19/23 19:00 1 Intake and Output 07/20/23 07/20/23 07/20/23 07:59 15:59 23:59 Intake Total 220 / 580 360 / 580 Output Total 975 / 975 0 / 975 Balance -755 / -395 360 / -395 Intake: Intake, Oral Amount 220 / 580 360 / 580 Output: Output, Urine Amount 675 / 675 0 / 675 Output, Urine Amount (Catheter) 300 / 300 Fabian 300 / 300 Other: Number of Unmeasured Voids 0 0 0 Weight 122 kg Patient Weight 07/20/23 23:59 Weight 122 kg Laboratory Results - last 24 hr 07/16/23 18:48: Crossmatch (AHG) See Detail 07/19/23 22:25: POC Glucose 162 H 07/20/23 05:57: POC Glucose 79 07/20/23 06:10: WBC 7.6 D, RBC 3.17 L, Hgb 10.1 L, Hct 31.1 L, MCV 98.0, MCH 31.9 H, MCHC 32.6, RDW 16.5, Plt Count 96 L, MPV 8.7, Neut % (Auto) 69.1, Lymph % (Auto) 23.0, [place] % (Auto) 6.4, Eos % (Auto) 1.3, Baso % (Auto) 0.2, Neut # (Auto) 5.2, Lymph # (Auto) 1.7, [place] # (Auto) 0.5, Eos # (Auto) 0.1, Baso # (Auto) 0.0, Sodium 140, Potassium 4.1, Chloride 114 H, Carbon Dioxide 26, Anion Gap 4.1 L, BUN 10, Creatinine 0.70 D, Estimated Creat Clear 43, Estimated GFR 85, Est GFR ( Amer) 102 D, Glucose 94, Calcium 8.0 L, Magnesium 2.2 D, Total Bilirubin 0.3, AST 36, ALT 41, Alkaline Phosphatase 79, Total Protein 5.0 L, Albumin 2.6 L, Globulin 2.4, Albumin/Globulin Ratio 1.1 07/20/23 11:16: POC Glucose 109 07/20/23 16:20: POC Glucose 133 H I & O for Labs for Last 24 Hours: Intake & Output 07/17/23 07/18/23 07/19/23 07/20/23 23:59 23:59 23:59 23:59 Intake Total 5474.437 / 5474.437 3158.218 / 3158.218 3097.950 / 3197.950 580 / 580 Output Total 850 / 850 2625 / 2625 3650 / 3700 975 / 975 Balance 4624.437 / 4624.437 533.218 / 533.218 -552.050 / -502.050 -395 / -395 Weight 122 kg 122 kg Microbiology Reports for the Last 24 Hours: Microbiology 07/17/23 04:50 Blood Blood Culture - Preliminary 07/17/23 05:00 Blood Blood Culture - Preliminary 07/17/23 05:00 Urine,Catheterized Urine Culture - Preliminary Constitutional: Present no acute distress, morbidly obese and chronically ill appearing Head: Present atraumatic and normocephalic ENT: Present normal exam Neck: Present normal inspection Respiratory: Present normal respiratory effort; Absent rhonchi, wheezes or crackles Cardiac: Present Reg Rate and Rhythm GI: Present normal bowel sounds; Absent tenderness Extremities: Present normal inspection, full ROM and edema (Trace bilateral lower extremity) Skin: Present intact; Absent erythema Comment:: Numerous bruises on arms Neuro: Present Grossly Intact, alert, awake, oriented x 3 and moves all extremities Assessment and Plan *Assessment and plan (1) Pulmonary embolism: Status: Acute Qualifiers: Pulmonary embolism type: saddle Chronicity: acute Acute cor pulmonale presence: with acute cor pulmonale Qualified Code(s): I26.02 - Saddle embolus of pulmonary artery with acute cor pulmonale Category: Medical Code(s): I26.99 - Other pulmonary embolism without acute cor pulmonale (2) HTN (hypertension): Status: Acute Qualifiers: Hypertension type: primary hypertension Qualified Code(s): I10 - Essential (primary) hypertension Category: Medical Code(s): I10 - Essential (primary) hypertension (3) CKD (chronic kidney disease) stage 2, GFR 60-89 ml/min: Status: Acute Category: Medical Code(s): N18.2 - Chronic kidney disease, stage 2 (mild) (4) Hypothyroidism: Status: Acute Category: Medical Code(s): E03.9 - Hypothyroidism, unspecified (5) UTI (urinary tract infection): Status: Acute Category: Medical Code(s): N39.0 - Urinary tract infection, site not specified (6) Hemorrhage: Status: Acute Category: Medical Code(s): R58 - Hemorrhage, not elsewhere classified Plan Patient is a 63-year-old female with past medical history of hypertension hyperlipidemia hypothyroidism who presents to the hospital from outside facility due to pulmonary embolism. Cardiology was consulted from [facility], cardiology recommended to transfer the patient to [facility] for further evaluation and possible thrombectomy. Patient doing better with no chest pain. Off Levophed. On room air. On oral anticoagulation. Therapy evaluated and would benefit from placement. Case management assisting with referrals. Continue bowel regimen. Problems addressed as follows: Pulmonary embolism - Discussed case with cardiology today, continue treatment for PE. On Xarelto therapy 15 mg twice daily for 3 weeks, then 20 mg daily thereafter. - Formal echo pending. Possible JANINE later this week -Blood pressure stable off Levophed. Discontinue right IJ and right arterial line. - Continue telemetry -Weaned to room air. -CBC, CMP, magnesium ordered for the morning. - electrolytes Stable with potassium 4.1, creatinine 0.7, BUN 10. - DVT in right lower extremity at the popliteal. Left leg negative. on LE doppler UTI - Urine abnormal with leukocyte esterase, 3+ bacteria, 20-50 white cells. - Continue ceftriaxone 1 g daily. Urine culture pending Acute blood loss anemia -Hemoglobin responded to transfusion, stable at 10.1. Hold for further transfusions. Transfusion threshold hemoglobin less than 9. -Status post 3 units total during admission Neuropathy Mood disorder Hypothyroidism -Continue home divalproex, buspirone, Neurontin, Seroquel, levothyroxine 75 mcg daily DVT prophylaxis-on xarelto Full code Regular diet
[2023-07-20] MEDS: QUETIAPINE 100MG TABLET 100 MG PO (20:41)
[2023-07-20] MEDS: PRAVASTATIN 20MG TAB 20 MG PO (20:41)
[2023-07-20 21:21] LABS: POC Glucose,Bedside 128 (70-110)
[2023-07-21] VITALS (8 sets, daily range): BP systolic 99–129; BP diastolic 63–78; PULSE 80–120; RESP 16–20; TEMP 36.4–37.1; O2SAT 90–97; BMI 49.5
--- NOTE | 2023-07-21 03:52 | PC.NURSE ---
Pt is alert and oriented x4, and is tolerating RA well. Pt has no complaints this shift, no acute changes and denies pain and needs.
[2023-07-21 05:39] LABS: POC Glucose,Bedside 76 (70-110)
[2023-07-21] MEDS: LEVOTHYROXINE 75MCG (0.075MG) TAB 75 MCG PO (06:06)
[2023-07-21 07:35] LABS: Basophils # 0.1 K/mm3 (0-0.2); Basophils % 0.6 % (0.1-2.0); Eosinophils # 0.2 K/mm3 (0.0-0.4); Eosinophils % 1.9 % (0.1-12.0); Hematocrit 32.9 % (37.0-47.0); Hemoglobin 10.6 g/dL (12.2-16.2); Lymphocytes # 2.3 K/mm3 (0.7-4.5); Mean Corpuscular HGB Conc 32.2 g/dL (31.8-35.4); Mean Corpuscular Hemoglobin 32.2 pg (27.0-31.2); Mean Platelet Volume 8.7 fl (7.4-10.4); Monocytes # 0.6 K/mm3 (0.1-1.0); Neutrophils # 5.3 K/mm3 (1.8-7.8); Neutrophils % 63.5 % (37.0-80.0); Platelet Count 141 K/mm3 (142-424); Red Blood Count 3.29 M/mm3 (4.20-5.40); Red Cell Distribution Width 16.9 % (11.5-17.5); White Blood Count 8.4 K/mm3 (4.8-10.8)
[2023-07-21 08:05] LABS: Alanine Aminotransferase 36 U/L (12-78); Albumin Level 2.8 g/dl (3.5-5.0); Albumin/Globulin Ratio 1.1 (1.1-1.8); Alkaline Phosphatase 76 U/L (38-126); Aspartate Amino Transferase 33 U/L (14-36); Bilirubin,Total 0.3 mg/dl (0.2-1.3); Blood Urea Nitrogen 14 mg/dl (7-17); Calcium 8.5 mg/dl (8.4-10.2); Carbon Dioxide 27 mmol/L (22.0-30.0); Chloride 113 mmol/L (98-107); Creatinine Clearance Estimated 43 mL/min (50-200); Estimated Glomerular Filt Rate 63 ml/min (>60); GFR (African American) 77 ML/MIN (>60); Globulin 2.6 g/dL (1.3-3.2); Glucose 109 mg/dl (74-100); Sodium 140 mmol/L (136-145); Total Protein,Serum 5.4 g/dl (6.3-8.2)
[2023-07-21 08:09] LABS: Magnesium 2.3 mg/dl (1.6-2.3)
[2023-07-21] MEDS: FAMOTIDINE 20MG TABLET 10 MG PO (08:29)
[2023-07-21] MEDS: DIVALPROEX SOD SPRINKLE 125MG CAPSULE 125 MG PO ×2 (08:29→20:43)
[2023-07-21] MEDS: GABAPENTIN 300MG CAPSULE 300 MG PO ×2 (08:29→20:43)
[2023-07-21] MEDS: BUSPIRONE HCL 5 MG TABLET 15 MG PO ×2 (08:29→20:43)
[2023-07-21] MEDS: RIVAROXABAN 15MG TABLET 15 MG PO ×2 (08:29→17:38)
[2023-07-21] MEDS: buPROPion HCl SR 150MG TAB 150 MG PO (08:29)
--- NOTE | 2023-07-21 08:41 | DIET.NUTRFU ---
A1c 5.6% will change to regular diet
[2023-07-21] MEDS: ERTAPENEM SODIUM 1 GM in 0.9 % SODIUM CHLORIDE 50 ML IV (09:19)
[2023-07-21] MEDS: SENNOSIDES 8.6MG/DOCUSATE 50MG TABLET 1 TAB PO ×2 (09:19→20:43)
[2023-07-21 11:42] LABS: POC Glucose,Bedside 115 (70-110)
--- NOTE | 2023-07-21 16:12 | EXP.ACUTE.PN ---
Subjective *Date: 07/21/23 *Time: 23:28 Interval history: Had a bowel movement overnight. Denies any chest pain or shortness of breath today. Urine culture returned with ESBL. Hemoglobin stable. Afebrile. Remains weak, necessitating placement. Working with therapy. Medical Exam Vital signs and Labs for Last 24 Hours: Vital Signs Temp Pulse Pulse Resp BP Pulse Ox O2 Del Method 07/21/23 15:56 97.6 F 90 16 127/78 93 L Room Air 07/21/23 14:45 Room Air 07/21/23 13:00 Room Air 07/21/23 12:00 98.6 F 95 H 16 129/68 96 Room Air 07/21/23 12:00 120 H 07/21/23 11:00 Room Air 07/21/23 09:00 Room Air 07/21/23 08:00 110 H 07/21/23 07:56 98.3 F 101 H 16 102/64 L 97 Room Air 07/21/23 07:00 Room Air 07/21/23 05:00 Room Air 07/21/23 04:00 98.5 F 82 20 111/65 94 L Room Air 07/21/23 04:00 80 07/21/23 03:00 Room Air 07/21/23 01:00 Room Air 07/21/23 00:00 90 07/21/23 00:00 98.6 F 97 H 18 99/63 L 90 L Room Air 07/20/23 23:00 Room Air 07/20/23 21:00 Room Air 07/20/23 20:00 100 H 07/20/23 20:00 Room Air 07/20/23 20:00 98.8 F 106 H 18 127/65 95 Room Air 07/20/23 18:36 Room Air 07/20/23 16:43 Room Air Intake and Output 07/21/23 07/21/23 07/21/23 07:59 15:59 23:59 Intake Total 840 / 1550 710 / 1550 Output Total 600 / 600 0 / 600 Balance 240 / 950 710 / 950 Intake: Intake, Oral Amount 840 / 1500 660 / 1500 Intake, Total IV Amount 50 / 50 Ertapenem Sodium 1 gm In 0.9 % 50 / 50 Sodium Chloride 50 ml @ 100 mls /hr IV Q24H [facility] Rx#:[id number] Output: Output, Urine Amount 600 / 600 0 / 600 Other: Number of Unmeasured Voids 1 2 Weight 122 kg Patient Weight 07/21/23 23:59 Weight 122 kg Laboratory Results - last 24 hr 07/20/23 16:20: POC Glucose 133 H 07/20/23 20:33: POC Glucose 128 H 07/21/23 05:17: POC Glucose 76 07/21/23 06:57: WBC 8.4, RBC 3.29 L, Hgb 10.6 L, Hct 32.9 L, MCV 100.0 H, MCH 32.2 H, MCHC 32.2, RDW 16.9, Plt Count 141 L D, MPV 8.7, Neut % (Auto) 63.5, Lymph % (Auto) 27.0, Bennett % (Auto) 7.0, Eos % (Auto) 1.9, Baso % (Auto) 0.6, Neut # (Auto) 5.3, Lymph # (Auto) 2.3, Bennett # (Auto) 0.6, Eos # (Auto) 0.2, Baso # (Auto) 0.1, Sodium 140, Potassium 4.0, Chloride 113 H, Carbon Dioxide 27, Anion Gap 4.0 L, BUN 14 D, Creatinine 0.90 D, Estimated Creat Clear 43, Estimated GFR 63, Est GFR ( Amer) 77 D, Glucose 109 H, Calcium 8.5, Magnesium 2.3, Total Bilirubin 0.3, AST 33, ALT 36, Alkaline Phosphatase 76, Total Protein 5.4 L, Albumin 2.8 L, Globulin 2.6, Albumin/Globulin Ratio 1.1 07/21/23 11:30: POC Glucose 115 H I & O for Labs for Last 24 Hours: Intake & Output 07/18/23 07/19/23 07/20/23 07/21/23 23:59 23:59 23:59 23:59 Intake Total 3158.218 / 3158.218 3097.950 / 3197.950 1210 / 1210 1550 / 1550 Output Total 2625 / 2625 3650 / 3700 975 / 975 600 / 600 Balance 533.218 / 533.218 -552.050 / -502.050 235 / 235 950 / 950 Weight 122 kg 122 kg 122 kg Microbiology Reports for the Last 24 Hours: Microbiology 07/17/23 05:00 Urine,Catheterized Urine Culture - Final 07/17/23 04:50 Blood Blood Culture - Preliminary 07/17/23 05:00 Blood Blood Culture - Preliminary Constitutional: Present no acute distress, morbidly obese and chronically ill appearing Head: Present atraumatic and normocephalic ENT: Present normal exam Neck: Present normal inspection Respiratory: Present normal respiratory effort; Absent rhonchi, wheezes or crackles Cardiac: Present Reg Rate and Rhythm GI: Present soft and normal bowel sounds; Absent distention or tenderness Extremities: Present normal inspection, full ROM and edema (Trace bilateral lower extremity) Skin: Present intact; Absent erythema Comment:: Numerous bruises on arms Neuro: Present Grossly Intact, alert, awake, oriented x 3 and moves all extremities Assessment and Plan *Assessment and plan (1) Pulmonary embolism: Status: Acute Qualifiers: Acute cor pulmonale presence: with acute cor pulmonale Chronicity: acute Pulmonary embolism type: saddle Qualified Code(s): I26.02 - Saddle embolus of pulmonary artery with acute cor pulmonale Category: Medical Code(s): I26.99 - Other pulmonary embolism without acute cor pulmonale (2) HTN (hypertension): Status: Acute Qualifiers: Hypertension type: primary hypertension Qualified Code(s): I10 - Essential (primary) hypertension Category: Medical Code(s): I10 - Essential (primary) hypertension (3) CKD (chronic kidney disease) stage 2, GFR 60-89 ml/min: Status: Acute Category: Medical Code(s): N18.2 - Chronic kidney disease, stage 2 (mild) (4) Hypothyroidism: Status: Acute Category: Medical Code(s): E03.9 - Hypothyroidism, unspecified (5) UTI (urinary tract infection): Status: Acute Category: Medical Code(s): N39.0 - Urinary tract infection, site not specified (6) Hemorrhage: Status: Acute Category: Medical Code(s): R58 - Hemorrhage, not elsewhere classified Plan Patient is a 63-year-old female with past medical history of hypertension hyperlipidemia hypothyroidism who presents to the hospital from outside facility due to pulmonary embolism. Cardiology was consulted from [facility], cardiology recommended to transfer the patient to [facility] for further evaluation and possible thrombectomy. Patient doing better with no chest pain. Off Levophed. On room air. On oral anticoagulation. Therapy evaluated and would benefit from placement. Case management assisting with referrals. Continue bowel regimen. Problems addressed as follows: Pulmonary embolism - Discussed case with cardiology today, continue treatment for PE. On Xarelto therapy 15 mg twice daily for 3 weeks, then 20 mg daily thereafter. - Formal echo pending. Possible JANINE later this week -Discontinue telemetry - on room air. -White cell count 8.4, hemoglobin 10.6. Platelets 141. Kidney function at baseline with BUN 14, creatinine 0.9. Electrolytes normal with potassium 4.0, magnesium 2.3. Repeat CBC, CMP, magnesium ordered for the morning. UTI - Urine abnormal with leukocyte esterase, 3+ bacteria, 20-50 white cells. -Urine culture positive for resistant E. coli. Discontinue ceftriaxone. Initiate ertapenem. Will treat with 1 g IV daily for 5 days. Acute blood loss anemia -Hemoglobin responded to transfusion, stable at 10.6. Hold for further transfusions. Transfusion threshold hemoglobin less than 9. -Status post 3 units total during admission Neuropathy Mood disorder Hypothyroidism -Continue home divalproex, buspirone, Neurontin, Seroquel, levothyroxine 75 mcg daily DVT prophylaxis-on xarelto Full code Regular diet
[2023-07-21 16:38] LABS: POC Glucose,Bedside 107 (70-110)
--- NOTE | 2023-07-21 18:13 | PC.NURSE ---
Pt is alert and oriented x4. She has ambulated to the bathroom with a walker and assist x1. Glucose was 107 and 115 at checks. LAC to LLE cleansed with ns and covered w/telfa and tegaderm. Sinus tach on tele. She has denied any questions or complaints. Family is at bedside.
[2023-07-21] MEDS: PRAVASTATIN 20MG TAB 20 MG PO (20:43)
[2023-07-21] MEDS: QUETIAPINE 100MG TABLET 100 MG PO (20:43)
[2023-07-21 21:01] LABS: POC Glucose,Bedside 103 (70-110)
[2023-07-22] VITALS: BP 114/67; PULSE 100; PULSE 76; TEMP 37.1; O2SAT 94
[2023-07-22 04:00] VITALS: BP 118/72; PULSE 80; PULSE 87; RESP 20; TEMP 37.2; O2SAT 96; BMI 49.5
--- NOTE | 2023-07-22 04:08 | PC.NURSE ---
Pt is alert and oriented x4, and currently tolerating RA. Pt denies pain and needs. no acute changes this shift.
[2023-07-22 05:51] LABS: POC Glucose,Bedside 86 (70-110)
[2023-07-22] MEDS: LEVOTHYROXINE 75MCG (0.075MG) TAB 75 MCG PO (06:06)
[2023-07-22 06:44] LABS: Chloride 114 mmol/L (98-107); Potassium 4.3 mmoL/L (3.5-5.1); Sodium 140 mmol/L (136-145)
[2023-07-22 06:47] LABS: Alanine Aminotransferase 30 U/L (12-78); Albumin Level 2.8 g/dl (3.5-5.0); Albumin/Globulin Ratio 1.1 (1.1-1.8); Alkaline Phosphatase 82 U/L (38-126); Anion Gap 4.3 mEq/L (5-15); Aspartate Amino Transferase 31 U/L (14-36); Bilirubin,Total 0.3 mg/dl (0.2-1.3); Blood Urea Nitrogen 19 mg/dl (7-17); Calcium 8.7 mg/dl (8.4-10.2); Carbon Dioxide 26 mmol/L (22.0-30.0); Creatinine Clearance Estimated 43 mL/min (50-200); Estimated Glomerular Filt Rate 56 ml/min (>60); GFR (African American) 68 ML/MIN (>60); Globulin 2.5 g/dL (1.3-3.2); Glucose 92 mg/dl (74-100); Total Protein,Serum 5.3 g/dl (6.3-8.2)
[2023-07-22 08:00] VITALS: BP 135/70; PULSE 100; PULSE 98; RESP 18; TEMP 37.1; O2SAT 96
[2023-07-22] MEDS: DIVALPROEX SOD SPRINKLE 125MG CAPSULE 125 MG PO (08:37)
[2023-07-22] MEDS: ERTAPENEM SODIUM 1 GM in 0.9 % SODIUM CHLORIDE 50 ML IV (08:37)
[2023-07-22] MEDS: GABAPENTIN 300MG CAPSULE 300 MG PO (08:37)
[2023-07-22] MEDS: buPROPion HCl SR 150MG TAB 150 MG PO (08:37)
[2023-07-22] MEDS: FAMOTIDINE 20MG TABLET 10 MG PO (08:38)
[2023-07-22] MEDS: RIVAROXABAN 15MG TABLET 15 MG PO (08:38)
[2023-07-22] MEDS: BUSPIRONE HCL 5 MG TABLET 15 MG PO (08:38)
--- NOTE | 2023-07-22 11:05 | EXP.DC.SUM ---
General Admission date:: 07/16/23 Discharge date: 07/22/23 HPI HPI HPI: Patient is a 63-year-old female with past medical history of hypertension hyperlipidemia hypothyroidism who presents to the hospital from outside facility due to pulmonary embolism. Cardiology was consulted from [facility], cardiology recommended to transfer the patient to & for further evaluation and possible thrombectomy. At time of my evaluation patient denies chest pain shortness of breath nausea vomiting constipation dysuria fevers and chills. Hospital Course Hospital Course Hospital Course: Patient is a 63-year-old female with past medical history of hypertension hyperlipidemia hypothyroidism who presents to the hospital from outside facility due to pulmonary embolism. Cardiology was consulted from [facility], cardiology recommended to transfer the patient to [facility] for further evaluation and possible thrombectomy. Patient found to have submassive PE. Successful thrombectomy. Gradual improvement in respiratory status and able to wean to room air. Patient improved in her mobility to the point she can discharge home using a rolling walker and with the assistance of home health. Patient comfortable this plan. Stable for discharge at this time. Problems addressed as follows: Pulmonary embolism Acute blood loss anemia Hypertension Hyperlipidemia -Presented as a transfer given concern for submassive saddle PE. Thrombectomy performed On 07/15. Successful procedure with clinical improvement. Patient was initiated on IV anticoagulation upon arrival to our facility. Was gradually weaned to oral anticoagulation given PE. Ultrasound lower extremity found presence of DVT. Recommend continued Xarelto for 15 mg twice daily for 3 weeks followed by 20 mg daily thereafter for at least 3 months. Follow-up with cardiology. Formal echo obtained with preserved ejection fraction. Left ventricle actually hyperdynamic with mild right sided dilation. May benefit from JANINE to evaluate atrial appendage in the coming weeks. Cardiology was consulted during admission and assisted with care. Did develop some mild anemia secondary to anticoagulation and hemorrhage from right heart cath insertion site. Responded well to transfusion, total of 3 units. Hemoglobin stable above 10 at time of discharge. -Of note, initially required Levophed due to hypotension from pulmonary embolus. Was gradually weaned off Levophed as she improved clinically. Resumed home amlodipine at time of discharge. -Continue pravastatin 20 mg daily UTI - Urine abnormal with leukocyte esterase, 3+ bacteria, 20-50 white cells. And elevated white count. Initially treated with ceftriaxone. Transitioned to ertapenem given resistance pattern with her E. coli positive culture. Culture also sensitive to Macrobid. Transitioned to Macrobid at discharge for ease of medication administration and given patient's clinical stability. Will complete 7 days total of antibiotics. Neuropathy Mood disorder Hypothyroidism -Continue home divalproex, buspirone, Neurontin, Seroquel, levothyroxine 75 mcg daily Stable to discharge home with home health. Rolling walker ordered. Total time spent on discharge 32 minutes in counseling, documentation, chart review, and direct care with patient. Exam Data for Last 24 hours Vital signs and Labs for Last 24 Hours: Temp Pulse Resp BP Pulse Ox O2 Del Method O2 Flow Rate 98.7 F 98 H 18 135/70 96 Room Air 1 07/22/23 08:00 07/22/23 08:00 07/22/23 08:00 07/22/23 08:00 07/22/23 08:00 07/22/23 09:00 07/20/23 03:00 FiO2 3 07/19/23 05:00 Laboratory Results - last 24 hr 07/21/23 11:30: POC Glucose 115 H 07/21/23 16:30: POC Glucose 107 07/21/23 20:42: POC Glucose 103 07/22/23 05:30: Sodium 140, Potassium 4.3, Chloride 114 H, Carbon Dioxide 26, Anion Gap 4.3 L, BUN 19 H D, Creatinine 1.00, Estimated Creat Clear 43, Estimated GFR 56 L, Est GFR ( Amer) 68, Glucose 92, Calcium 8.7, Total Bilirubin 0.3, AST 31, ALT 30, Alkaline Phosphatase 82, Total Protein 5.3 L, Albumin 2.8 L, Globulin 2.5, Albumin/Globulin Ratio 1.1 07/22/23 05:32: POC Glucose 86 I & O for Last 24 hours: Intake & Output 07/19/23 07/20/23 07/21/23 07/22/23 23:59 23:59 23:59 23:59 Intake Total 3097.950 / 3197.950 1210 / 1210 2090 / 2090 360 / 360 Output Total 3650 / 3700 975 / 975 600 / 600 0 / 0 Balance -552.050 / -502.050 235 / 235 1490 / 1490 360 / 360 Weight 122 kg 122 kg 122 kg 122 kg Constitutional Constitutional: no acute distress, morbidly obese and cooperative *Routine HEENT Exam Head: Present normocephalic Eye: Present EOMI and PERRL ENT: Present mucous membranes moist *Routine Neck Exam Neck: Present supple; Absent lymphadenopathy *Routine Respiratory Exam Respiratory: Present CTA bilaterally; Absent rhonchi, wheezes or crackles *Routine Cardiovascular Exam Cardiovascular: Present RRR *Routine Abdominal Exam Abdominal: Present soft and normoactive bowel sounds; Absent tenderness *Routine Rectal Exam Patient deferred: visual exam *Routine Exam Patient deferred: external exam *Routine Extremities Exam Extremities: Present edema (Trace lower extremity); Absent cyanosis or clubbing *Routine Skin Exam Skin: Present warm; Absent rash Comments: Bruising on arms; small laceration left lower leg from trauma prior to admission. No active bleeding. Bandage in place. *Routine Neurological Exam Neurological: Present alert, oriented X3, altered mental status and moving all extremities Results Data Completed and Pending Labs on day of discharge: Labs from last 24 hours 07/22/23 07/22/23 07/21/23 05:32 05:30 20:42 Sodium 140 Potassium 4.3 Chloride 114 H Carbon Dioxide 26 Anion Gap 4.3 L BUN 19 H D Creatinine 1.00 Estimated Creat Clear 43 Estimated GFR 56 L Est GFR ( Amer) 68 Glucose 92 POC Glucose 86 103 Calcium 8.7 Total Bilirubin 0.3 AST 31 ALT 30 Alkaline Phosphatase 82 Total Protein 5.3 L Albumin 2.8 L Globulin 2.5 Albumin/Globulin Ratio 1.1 07/21/23 07/21/23 16:30 11:30 Sodium Potassium Chloride Carbon Dioxide Anion Gap BUN Creatinine Estimated Creat Clear Estimated GFR Est GFR ( Amer) Glucose POC Glucose 107 115 H Calcium Total Bilirubin AST ALT Alkaline Phosphatase Total Protein Albumin Globulin Albumin/Globulin Ratio Preliminary micro results at discharge 07/17/23 04:50 Blood Culture - Preliminary Blood 07/17/23 05:00 Blood Culture - Preliminary Blood DS: Diagnosis Discharge Diagnosis (1) Pulmonary embolism: Status: Acute Code(s): I26.99 - Other pulmonary embolism without acute cor pulmonale Qualifiers: Acute cor pulmonale presence: with acute cor pulmonale Chronicity: acute Pulmonary embolism type: saddle Qualified Code(s): I26.02 - Saddle embolus of pulmonary artery with acute cor pulmonale (2) HTN (hypertension): Status: Acute Code(s): I10 - Essential (primary) hypertension Qualifiers: Hypertension type: primary hypertension Qualified Code(s): I10 - Essential (primary) hypertension (3) CKD (chronic kidney disease) stage 2, GFR 60-89 ml/min: Status: Acute Code(s): N18.2 - Chronic kidney disease, stage 2 (mild) (4) Hypothyroidism: Status: Acute Code(s): E03.9 - Hypothyroidism, unspecified (5) UTI (urinary tract infection): Status: Acute Code(s): N39.0 - Urinary tract infection, site not specified (6) Hemorrhage: Status: Acute Code(s): R58 - Hemorrhage, not elsewhere classified Meds Home Medications and Allergies Home Medications Medication Instructions Recorded Confirmed Type amlodipine 10 mg tablet 10 mg PO DAILY 07/16/23 07/16/23 History bupropion HCl 150 mg 24 hr tablet, 150 mg PO DAILY 07/16/23 07/16/23 History extended release buspirone 15 mg tablet 15 mg PO BID 07/16/23 07/18/23 History divalproex 125 mg tablet,delayed 125 mg PO BID 07/16/23 07/16/23 History release ergocalciferol (vitamin D2) 1,250 1,250 mcg PO MONTHLY 07/16/23 07/16/23 History mcg (50,000 unit) capsule famotidine 40 mg tablet 40 mg PO DAILY 07/16/23 07/16/23 History gabapentin 300 mg capsule 300 mg PO Q12H 07/16/23 07/16/23 History levothyroxine 75 mcg tablet 75 mcg PO DAILYDM 07/16/23 07/16/23 History pravastatin 20 mg tablet 20 mg PO DAILY 07/16/23 07/16/23 History quetiapine 100 mg tablet 100 mg PO HS 07/16/23 07/16/23 History semaglutide 0.25 mg or 0.5 mg (2 0.5 mg SQ WEEKLY 07/16/23 07/16/23 History mg/3 mL) subcutaneous pen injector (Ozempic) nitrofurantoin 100 mg PO BID 5 days #10 caps 07/22/23 Rx monohydrate/macrocrystals 100 mg capsule (Macrobid) rivaroxaban 15 mg tablet (Xarelto) 15 mg PO BIDWMEAL 18 days #35 tabs 07/22/23 Rx rivaroxaban 20 mg tablet (Xarelto) 20 mg PO HS #30 tabs 07/22/23 Rx New Prescriptions to Start Prescriptions: nitrofurantoin monohyd/m-cryst [Macrobid] Steve Sargent rivaroxaban [Xarelto] Steve Sargent rivaroxaban [Xarelto] Steve Sargent Allergies Allergy/AdvReac Type Severity Reaction Status Date / Time Penicillins Allergy Mild Verified 07/16/23 13:29 Discharge Plan Disposition Patient Disposition: Home Health Service Condition: Fair Discharge Order Discharge Orders: Discharge Order (Routine); Ordered 07/22/23 Ordered By: Steve Sargent Follow up Plan Follow up with: Myriam Rios APRN [Referring] - 07/27/23 2:15 pm Myron Beltran PA [Physician Agricultural Produce [employer]] - 08/10/23 2:50 pm Prescriptions/Medication Reconciliation: New Xarelto 15 mg Tablet 15 mg PO BIDWMEAL 18 Days Qty: 35 0RF nitrofurantoin monohyd/m-cryst [Macrobid] 100 mg capsule 100 mg PO BID 5 Days Qty: 10 0RF Rx Instructions: must administer with a meal/food Xarelto 20 mg tablet 20 mg PO HS Qty: 30 2RF Rx Instructions: must administer with evening meal Continued famotidine 40 mg tablet 40 mg PO DAILY quetiapine 100 mg tablet 100 mg PO HS levothyroxine 75 mcg tablet 75 mcg PO DAILYDM amlodipine 10 mg tablet 10 mg PO DAILY divalproex 125 mg tablet,delayed release (DR/EC) 125 mg PO BID gabapentin 300 mg capsule 300 mg PO Q12H pravastatin 20 mg tablet 20 mg PO DAILY ergocalciferol (vitamin D2) 1,250 mcg (50,000 unit) capsule 1,250 mcg PO MONTHLY buspirone 15 mg tablet 15 mg PO BID bupropion HCl 150 mg tablet extended release 24 hr 150 mg PO DAILY Ozempic 0.25 mg or 0.5 mg (2 mg/3 mL) pen injector 0.5 mg SQ WEEKLY Other Ambulatory Orders: Home Medical Equipment (Routine) Location: None Selected Ordered By: Steve Sargent Problem Reconciliation Problems Reviewed?: Yes Patient Discharge Instructions ACTIVITY: Continue current activity and Ambulate as tolerated DIET: continue same diet Patient Instructions: DI for Pulmonary Embolism, DI for Surgical Site Infection, DI for Central Line-Associated Bloodstream Infections, Catheter-associated Urinary Tract Infection Providers Primary Care Provider: Albina Garrison Provider: Hollis Velasquez Attending Provider: Hollis Velasquez
--- NOTE | 2023-07-25 11:42 | CARE MANAGER ---
Contacted patient related to hospital discharge. She states she is doing very well. She is taking new medication and denies questions or concerns at this time and is aware of follow up appointment.
== END 2023-07-22 13:28 | disposition home health service (06) | DRG 163 ==
PROVIDERS: Internal Medicine; Internal Medicine Adolescent Medicine; Nurse Practitioner Family; Physician Assistant; Admitting Provider Internal Medicine; PCP Emergency Medicine; Visit Provider Internal Medicine
PROC: 02CQ3ZZ Extirpation of Matter from Right Pulmonary Artery, Percutaneous Approach (ICD-10-PCS; principal; 2023-07-16 13:30)
DX: I26.02 Saddle embolus of pulmonary artery with acute cor pulmonale (principal); E11.00 Type 2 diabetes mellitus with hyperosmolarity without nonketotic hyperglycemic-hyperosmolar coma (NKHHC); D62 Acute posthemorrhagic anemia; I97.610 Postprocedural hemorrhage of a circulatory system organ or structure following a cardiac catheterization; N39.0 Urinary tract infection, site not specified; E78.5 Hyperlipidemia, unspecified; E03.9 Hypothyroidism, unspecified; F39 Unspecified mood [affective] disorder; E11.22 Type 2 diabetes mellitus with diabetic chronic kidney disease; N18.2 Chronic kidney disease, stage 2 (mild); I12.9 Hypertensive chronic kidney disease with stage 1 through stage 4 chronic kidney disease, or unspecified chronic kidney disease; I95.9 Hypotension, unspecified; Y84.9 Medical procedure, unspecified as the cause of abnormal reaction of the patient, or of later complication, without mention of misadventure at the time of the procedure; G62.9 Polyneuropathy, unspecified; E11.40 Type 2 diabetes mellitus with diabetic neuropathy, unspecified
CPT/HCPCS: 36556; 37184; 37185; 36620; 93451; 36415; 70450; 71045; 74176; 80048; 80053; 80061; 81001; 82009; 82803; 82962; 83036; 83605; 83735; 84100; 85007; 85014; 85018; 85025; 85048; 85049; 85347; 85610; 85730; 86850; 87040; 87086; 93005; 93306; 93970; 97110; 97162; 97165; 97530; 99152; 99153; C1725; C1757; C1769; C1894; J0696; J1335; J1644; J2405; P9016; Q9957; Q9967

== ENCOUNTER 2023-08-10 15:59 | Outpatient (CLI) | payer MEDICARE, SELFPAY ==
--- NOTE | 2023-08-10 16:13 | CT_ITS ---
PROCEDURE INFORMATION: Exam: CTA Chest Without And With Contrast Exam date and time: 08/10/2023 5:10 PM Age: 63 years old Clinical indication: Pain; Angina pectoris; Patient HX: Prior HX of pe; Additional info: Pe protocol TECHNIQUE: Imaging protocol: Computed tomographic angiography of the chest without and with contrast. Exam focused on the arteries. 3D rendering (Not supervised by radiologist): MIP and/or 3D reconstructed images were created by the technologist. Radiation optimization: All CT scans at this facility use at least one of these dose optimization techniques: automated exposure control; mA and/or kV adjustment per patient size (includes targeted exams where dose is matched to clinical indication); or iterative reconstruction. Contrast material: ISOVUE 370; Contrast volume: 70 ml; Contrast route: INTRAVENOUS (IV); COMPARISON: 1. XA CL PULMONARY ANGIOGRAM 07/16/2023 2:04 PM 2. CR XR CHEST PORTABLE 07/17/2023 4:16 AM FINDINGS: Pulmonary arteries: There are linear filling defects within the right main pulmonary artery as well as lobar branches of the bilateral lower lobes. No occlusive filling defect is seen. Aorta: There is atherosclerotic disease of the visualized aorta and its major branch vessels. Lungs: There are scattered calcified granulomas in the lungs which most likely reflect prior granulomatous disease. Scattered areas of bronchial wall thickening which are likely chronic inflammatory. A few areas of subpleural reticulation are noted, nonspecific. Pleural spaces: Unremarkable. No pneumothorax. No pleural effusion. Heart: Unremarkable. No cardiomegaly. No pericardial effusion. Heart RV/LV ratio: RV to LV ratio is less than 1.0. Lymph nodes: Unremarkable. No enlarged lymph nodes. Bones/joints: There is diffuse degenerative disease of the visualized osseous structures. Soft tissues: Unremarkable. IMPRESSION: 1. Linear filling defects within main, lobar, and segmental arterial branches which appear nonocclusive and are most suggestive of chronic emboli. A small superimposed acute embolus is not excluded, no evidence for pulmonary infarct or right heart strain. 2. No dense parenchymal consolidation, pleural effusion, or pneumothorax.
[2023-08-10 16:19] LABS: Basophils # 0.1 K/mm3 (0-0.2); Basophils % 0.7 % (0.1-2.0); Eosinophils # 0.2 K/mm3 (0.0-0.4); Eosinophils % 1.5 % (0.1-12.0); Hematocrit 44.1 % (37.0-47.0); Hemoglobin 13.8 g/dL (12.2-16.2); Lymphocytes # 2.7 K/mm3 (0.7-4.5); Lymphocytes % 26.7 % (10-50); Mean Corpuscular HGB Conc 31.3 g/dL (31.8-35.4); Mean Corpuscular Hemoglobin 31.3 pg (27.0-31.2); Mean Corpuscular Volume 100.1 fl (81-99); Monocytes # 0.6 K/mm3 (0.1-1.0); Monocytes % 6.3 % (1.7-9.3); Neutrophils # 6.5 K/mm3 (1.8-7.8); Neutrophils % 64.7 % (37.0-80.0); Platelet Count 318 K/mm3 (142-424); Red Cell Distribution Width 15.2 % (11.5-17.5); White Blood Count 10.1 K/mm3 (4.8-10.8)
[2023-08-10 16:53] LABS: Alanine Aminotransferase 19 U/L (12-78); Alkaline Phosphatase 107 U/L (38-126); Anion Gap 14.1 mEq/L (5-15); Aspartate Amino Transferase 25 U/L (14-36); Bilirubin,Direct 0.1 mg/dl (0.0-0.4); Bilirubin,Indirect 0.3 mg/dL (0.0-0.9); Bilirubin,Total 0.4 mg/dl (0.2-1.3); Bilirubin,Unconjugated 0.3 mg/dL (0.0-1.1); Blood Urea Nitrogen 14 mg/dl (7-17); Carbon Dioxide 28 mmol/L (22.0-30.0); Chloride 103 mmol/L (98-107); Chol/HDL Ratio 2.8 (1-3.5); Cholesterol 261 mg/dl (140-200); Estimated Glomerular Filt Rate 63 ml/min (>60); GFR (African American) 77 ML/MIN (>60); Glucose 104 mg/dl (74-100); HDL Cholesterol 94 mg/dl (40-60); Potassium 4.1 mmoL/L (3.5-5.1); Sodium 141 mmol/L (136-145); Triglycerides 156 mg/dl (30-150); VLDL Cholesterol 31 mg/dL (0-40)
[2023-08-10 17:05] LABS: Direct LDL Cholesterol 118.05 mg/dL (100-129)
[2023-08-10 17:24] LABS: Thyroid Stimulating Hormone 2.41 uIU/mL (0.465-4.68)
[2023-08-10] MEDS: SODIUM CHLORIDE 0.9% 10ML SYR (RAD ONLY) 10 ML IV (17:24)
[2023-08-10] MEDS: IOPAMIDOL-370 (76%);100ML BOTTLE 70 ML IV (17:24)
[2023-08-10] MEDS: 0.9 % SODIUM CHLORIDE 50 ML VIAL IV (17:24)
== END 2023-08-10 23:59 | disposition home or self-care (01) ==
PROVIDERS: PCP Nurse Practitioner; Visit Provider Physician Assistant
DX: I10 Essential (primary) hypertension (principal); N18.2 Chronic kidney disease, stage 2 (mild); I82.409 Acute embolism and thrombosis of unspecified deep veins of unspecified lower extremity; R60.0 Localized edema; R10.9 Unspecified abdominal pain
CPT/HCPCS: 36415; 71275; 80048; 80061; 80076; 83735; 84439; 84443; 85025; Q9967

== ENCOUNTER 2023-08-19 10:49 | Outpatient (CLI) | payer MEDICARE, SELFPAY ==
--- NOTE | 2023-08-19 | CA_ITS ---
APPROVED REPORT Exam: Pharmacologic Technologist: Genoveva Ding, Ht: 5 ft 2 in Wt: 259 lbs BSA: 2.13 m2 HR: 63 bpm BP: 125/60 mmHg Rhythm: NSR Medical History Medications: Levothyroxine,,,,, Gabapentin,,,,, Buspirone,,,,, XaRELTO,,,,, Famotidine,,,,, Quetiapine,,,,, Vit D2,,,,, BuPROPION HCI,,,,, Ozempic,,,,, Divaloproex,,,,, Pravstatin,,,,, Cardiac Risk Factors: HTN, Hyperlipidemia, Smoking Stress Test Details Test: LEXISCAN HR Resting HR: 68 bpm Max Heart Rate (APMHR): 157 bpm Max HR Achieved: 88 bpm Target HR (85% APMHR): 133 bpm % of APMHR: 56 Recovery HR: 74 bpm BP Resting BP: 125/60 mmHg Max BP: 125/60 mmHg Recovery BP: 115.0/59.0 mmHg ECG Resting ECG: NSR Stress ECG: No significant ST changes Arrhythmia: None Clinical Exercise duration: 04:01 min Highest Stage Achieved: Stress ECG Conclusion During lexiscan pt experinced mild stomach discomfort. No CP noted. Rare PAC noted. No significant ST changes. Unremarkable lexiscan stress. Myoview images reported separately. Test Summary REST . . . . . . . Sitting REST 04:03 . . 68 . 125/ 60 . . Stage 1 01:00 . . 88 . . . . Stage 2 01:00 . . 82 . . . . Stage 3 01:00 . . 79 . 113/ 60 . . Stage 4 01:00 . . 77 . . . . Stage 4 01:01 . . 77 . . . Stop exercise at 04:01 RECOVERY 01:00 . . 76 . 111/ 63 . . RECOVERY 02:00 . . 77 . 111/ 63 . . RECOVERY 03:00 . . 74 . 111/ 63 . . RECOVERY 04:00 . . 73 . 115/ 59 . . RECOVERY 04:34 . . 72 . 115/ 59 . . Electronically signed by : Ericka Najera MD 08/23/2023 13:16:41
--- NOTE | 2023-08-19 10:53 | CA_ITS ---
APPROVED REPORT EXAM: Comprehensive 2D, Doppler, and color-flow Echocardiogram Calculating Machine Mechanic: Amanda Lai RT(R) Ht: 5 ft 2 in Wt: 259lbs BSA: 2.13 BP: 128/81 mmHg Indications: Abn EKG, edema, fatigue, HTN, hyperlipidemia, hx saddle PEs/p embolectomy 07/16/23, CKD II. Echo performed 07/16/23 with EF > 70%. 2D Dimensions EF AP4 65.50 % GL Strain -17.4 % M-Mode Dimensions RVDd 2.80 cm (0.9-2.6) LVDd 5.08 cm (3.5-5.7) LVDs 3.64 cm (3.5-5.7) IVSd 0.72 cm (0.6-1.1) PWd 0.97 cm (0.6-1.1) EF (Teich) 54.40% FS 28.30% EDV (Teich) 122.70 mL ESV (Teich) 55.90 mL LV Diastology E Decel Time 153 (160-240 msec) E/A Ratio 0.9 Mitral Valve MV E Max Turner. 61.0 (40-130 cm/s) MV A Velocity 67.0 (40-130 cm/s) E/A Ratio 0.90 MV PHT 45.0 ms Tricuspid Valve TR P. Velocity 243.00 cm/s RAP Estimate 10.00 mmHg RVSP 33.60 mmHg Other Information Study Quality: Fair Conclusion This is a limited TTE to evaluate for biventricular size and function in the setting of recent submassive PE s/p embolectomy (07/16/2023). Limited windows were obtained. The left ventricle is normal in size. There is increased LV wall thickness. There are no regional wall motion abnormalities. LVEF is 65%. The right ventricle is normal in size and systolic function. Mild TR. RVSP is 25-30 mmHg. Compared to prior study from 07/18/2023, the RV size and RV function are now improved. Electronically signed by : Ericka Najera MD 08/22/2023 00:11:39
--- NOTE | 2023-08-19 11:30 | NM_ITS ---
APPROVED REPORT Exam: Nuclear Stress Test Indication: Fatigue, High cholesterol Patient Location: Outpatient Stress Tech: Genoveva CHAPPELL Tech:ANTHONY Juárez RT(R)(N) Ht: 5 ft 2 in Wt: 260 lbs Bra Size: 44C HR: 68 bpm BP: 125/60 mmHg BSA: 2.14 m2 TID: 1.03 BMI: 47.5 History: Fatigue, High cholesterol Procedure: Patient received 0.4 mg of intravenous Lexiscan, resting heart rate 68 bpm, resting blood pressure 125/60 mmHg, with Lexiscan maximum heart rate achieved was 88 bpm which is % of the maximum predicted heart rate and blood pressure was 125/60 mmHg. With Lexiscan, patient denied any complaint of chest pain. Cardiac Stress and Resting SPECT Images: Cardiac Stress and Resting SPECT images were obtained using technetium 99m Myoview 32.6 mCi stress and 10.51 mCi at rest. Technically difficult study due to significant soft tissue overlap with the cardiac borders. This may affect the diagnostic interpretation of the study findings. Resting and stress imaging in supine and prone positions demonstrate a large sized, moderate, fixed perfusion defect in the anterior LV wall. Gated imaging demonstrates normal global and regional LV systolic function. LVEF is calculated at 68%. Conclusion: Large sized, moderate, fixed perfusion defect in the anterior LV wall. These findings are inconclusive, and may reflect soft tissue attenuation. However, true perfusion defect cannot be entirely ruled out. Gated imaging demonstrates normal global and regional LV systolic function. LVEF is calculated at 68%. Electronically signed by : Ericka Najera MD 08/23/2023 13:19:23
[2023-08-19] MEDS: REGADENOSON 0.4MG/5ML SYRINGE 0.400000000000000022 MG IV (13:31)
[2023-08-19] MEDS: ISOTOPE MYOVIEW (PER STUDY) 1 DOSE IV (13:31)
[2023-08-19] MEDS: SODIUM CHLORIDE 0.9% 10ML SYR (RAD ONLY) 10 ML IV ×2 (13:31)
== END 2023-08-19 23:59 | disposition home or self-care (01) ==
LOC: RT 10:53
PROVIDERS: PCP Nurse Practitioner; Visit Provider Physician Assistant
DX: I10 Essential (primary) hypertension; N18.2 Chronic kidney disease, stage 2 (mild); R60.0 Localized edema; R94.31 Abnormal electrocardiogram [ECG] [EKG]
CPT/HCPCS: 78452; 93017; 93018; 93306; 93308; A9502; J2785

== ENCOUNTER 2023-10-07 08:47 | Outpatient (CLI) | payer MEDICARE, SELFPAY ==
[2023-10-07] VITALS (8 sets, daily range): BP systolic 106–191; BP diastolic 44–154; PULSE 56–76; RESP 16–18; TEMP 36.5; O2SAT 94–98; BMI 47.2
--- NOTE | 2023-10-07 08:48 | CT_ITS ---
APPROVED REPORT Communication Engineer: CLINICAL INDICATION Chest Pain TECHNIQUE Image Acquisition: A 128 slice MDCT scanner (sCoolTVa View) was used for data acquisition. A noncontrast coronary calcium scan was performed. A CT attenuation threshold of 130 Hounsfield units (HU) was used for the detection of calcium in contiguous voxels of 1 sq mm in area to be counted as individual lesions. Bolus tracking in the ascending aorta with a threshold of 180 HU was performed. Immediately afterwards, ECG synchronized cardiac CT was then performed from the cardiac base to apex using retrospective gating with ECG tube current modulation. A total of 85 mL of Isovue 370 mg/mL contrast medium was administered at 5 mL/sec followed by a saline flush using a biphasic injection protocol. A tube voltage of 120 KVp was used. The patient received the following medications prior to the cardiac CT. 5 mg of intravenous metoprolol 0.8 mg of sublingual nitroglycerin The average heart rate at the time of acquisition was 58 bpm and regular. Image Reconstruction Transaxial images were reconstructed at 0.67 mm slide thickness. Data was reviewed interactively on an advanced workstation capable of 2 and 3-dimensional displays in all conventional reconstruction formats, including multiplanar reformations, maximum intensity projections, curved multiplanar reformations, and volume rendered reconstructions. When applicable, selected routine images describing the relevant coronary anatomy and pathology were saved and sent to PACS. Complications None Technical Quality Overall image quality was good. Coronary artery opacification was adequate. Total DLP (Dose-Length Product) is 2354.4 mGy-cm. The reported value represents the total of one or more individual components during the CT acquisition of this date and at this time, and as such, the same value may appear in more than one CT report depending on the interpreting/reporting physicians. COMPARISON None FINDINGS CT Coronary Calcium Scoring LMA (Left Main Artery) = 0 LAD (Left Anterior Descending) = 0 LCX (Left Coronary Circumflex) = 0 RCA (Right Coronary Artery) = 0 Total Calcium Score = 0 using the AJ-130 method. The interpretation of the calcium heart score is based on the following continuum*: 0 = no calcified plaque detected (risk of coronary artery disease is very low ??? less than 5%) 1-10 = calcium detected in extremely minimal levels (risk of coronary diseases is still low ??? less than 10%) 11-100 = mild levels of plaque detected with certainty (mild or minimal narrowing of heart arteries is likely) 101-400 = definite,at least moderate levels of plaque detected (relatively high risk of a heart attack within 3-5 years) >401-999 = extensive levels of plaque detected (high risk of heart attack, high levels of vascular disease are present, high likelihood of at least one significant coronary narrowing) *The calcium heart score quantifies the burden of coronary calcification/plaque in the coronary arteries. The calcium heart score is not able to evaluate the presence or burden of non-calcified (i.e. soft) plaque. There is no identifiable calcification in the aortic valve, mitral annulus or mitral valve, pericardium, or myocardium. Coronary CT Angiography The coronary arterial system is right dominant. Quantitative Stenosis Grading: Left Main (LM): The left main originates normally from the left sinus of Valsalva. The LM bifurcates into the left anterior descending artery and left circumflex artery. The LM is patent with no evidence of atherosclerosis. Left Anterior Descending (LAD) and Diagonal Branches: The LAD gives off 2 diagonal branch(es). The LAD and its branches are patent with no evidence of atherosclerosis. There is no evidence of LAD-myocardial bridge. Left Circumflex (LCX) and Obtuse Marginals (OM): The LCX gives off 1 Obtuse Marginal (OM) branch(es). The LCX and its branches are patent with no evidence of atherosclerosis. Right Coronary Artery (RCA): The RCA originates normally from the right sinus of Valsalva. The RCA gives off a posterior descending artery (PDA) and posterolateral (PL) branches. The RCA and its branches are patent with no evidence of atherosclerosis. Non-Coronary Cardiac Findings: Analysis of the left ventricular (LV) structure and function was performed after 3-D reconstruction of the LV from axial images, with user-corrected automatic contouring for assessment of LV volumes and user-defined reconstruction from oblique planes for measurement of 3-D cardiac structure and function. -The left ventricle systolic function is normal. -There is no left atrial appendage filling defect. Two right pulmonary veins and two left pulmonary veins drain normally into the left atrium. -No pericardial thickening or calcification. -Central and branch pulmonary arteries in the [id number] are unremarkable. -Thoracic aorta within the visualized thoracic aortic-branches in the [id number] is unremarkable. Extracardiac Structures No significant extra-cardiac findings. Note, however, that this study is focused on the cardiac findings. IMPRESSION -No coronary calcification with an Agatston score = 0 using the AJ-130 method. -No evidence of significant flow-limiting atherosclerosis of the coronary arteries. -CAD-RADS 0. Management recommendations per ACC/AHA guidelines*, as clinically appropriate. *Recommendations: CAD RADS 0: Reassurance. Consider non-atherosclerotic causes of chest pain. CAD RADS 1: Consider non-atherosclerotic causes of chest pain. Consider preventive therapy and risk factor modification. CAD RADS 2: Consider non-atherosclerotic causes of chest pain. Consider preventive therapy and risk factor modification, particularly for patients with nonobstructive plaque in multiple segments. CAD RADS 3: Consider further functional testing. Consider symptom-guided anti-ischemic and preventive pharmacotherapy as well as risk factor modification per published guideline statements. CAD RADS 4A: Consider further functional testing or invasive coronary angiography with revascularization per published guideline statements. Consider symptom-guided anti-ischemic and preventive pharmacotherapy as well as risk factor modification per published guideline statements. CAD RADS 4B: Invasive coronary angiography recommended with revascularization per published guideline statements. Consider symptom-guided anti-ischemic and preventive pharmacotherapy as well as risk factor modification per published guideline statements. CAD RADS 5: Consider invasive angiography and/or viability assessment with revascularization per published guideline statements. Consider symptom-guided anti-ischemic and preventive pharmacotherapy as well as risk factor modification per published guideline statements. CRITICAL RESULT None COMMUNICATION Per this written report The coronary and cardiac findings of this CCTA were reviewed, reported, and signed by Willy Najera MD (Systems Security Consultant) Conclusion Electronically signed by : Ericka Najera MD 10/08/2023 23:56:00
[2023-10-07 09:59] LABS: Anion Gap 8.2 mEq/L (5-15); Blood Urea Nitrogen 23 mg/dl (7-17); Calcium 9.3 mg/dl (8.4-10.2); Carbon Dioxide 28 mmol/L (22.0-30.0); Chloride 109 mmol/L (98-107); Creatinine Clearance Estimated 43 mL/min (50-200); Estimated Glomerular Filt Rate 63 ml/min (>60); GFR (African American) 77 ML/MIN (>60); Glucose 97 mg/dl (74-100); Potassium 5.2 mmoL/L (3.5-5.1); Sodium 140 mmol/L (136-145)
[2023-10-07] MEDS: NITROGLYCERIN 0.4MG SL TABLET SL (10:40)
[2023-10-07] MEDS: METOPROLOL TARTRATE 5MG/5ML VIAL 5 MG IV (10:48)
[2023-10-07] MEDS: IOPAMIDOL-370 (76%);100ML BOTTLE 85 ML IV (10:59)
[2023-10-07] MEDS: 0.9 % SODIUM CHLORIDE 50 ML VIAL IV (10:59)
[2023-10-07] MEDS: SODIUM CHLORIDE 0.9% 10ML SYR (RAD ONLY) 10 ML IV (10:59)
== END 2023-10-07 11:05 | disposition home or self-care (01) ==
PROVIDERS: PCP Nurse Practitioner; Visit Provider Physician Assistant
DX: R94.31 Abnormal electrocardiogram [ECG] [EKG] (principal); R60.0 Localized edema; R53.1 Weakness; I26.02 Saddle embolus of pulmonary artery with acute cor pulmonale; I82.401 Acute embolism and thrombosis of unspecified deep veins of right lower extremity; N18.2 Chronic kidney disease, stage 2 (mild); R00.0 Tachycardia, unspecified; R93.1 Abnormal findings on diagnostic imaging of heart and coronary circulation; Z72.0 Tobacco use; I12.9 Hypertensive chronic kidney disease with stage 1 through stage 4 chronic kidney disease, or unspecified chronic kidney disease; R07.9 Chest pain, unspecified
CPT/HCPCS: 75574; 80048; Q9967

== ENCOUNTER 2024-05-17 10:26 | Outpatient (CLI) | payer MEDICARE, SELFPAY ==
[2024-05-17 12:15] LABS: PHA INR Fingerstick 2.3 (0.9-1.1)
== END 2024-05-17 12:17 ==
LOC: ACC 10:27
PROVIDERS: PCP Nurse Practitioner; Visit Provider Physician Assistant
DX: Z79.01 Long term (current) use of anticoagulants (principal); Z86.711 Personal history of pulmonary embolism
CPT/HCPCS: 85610; 99211; G0463

== ENCOUNTER 2024-05-25 13:59 | Outpatient (CLI) | payer MEDICARE, SELFPAY ==
[2024-05-25 14:56] LABS: PHA INR Fingerstick 3.6 (0.9-1.1)
== END 2024-05-25 15:39 ==
LOC: ACC 14:00
PROVIDERS: PCP Nurse Practitioner; Visit Provider Physician Assistant
DX: Z86.711 Personal history of pulmonary embolism (principal); Z79.01 Long term (current) use of anticoagulants
CPT/HCPCS: 85610; 99211; G0463

== ENCOUNTER 2024-06-08 14:08 | Outpatient (CLI) | payer MEDICARE, SELFPAY ==
[2024-06-08 14:34] LABS: PHA INR Fingerstick 2.5 (0.9-1.1)
== END 2024-06-08 14:36 ==
LOC: ACC 14:08
PROVIDERS: PCP Nurse Practitioner; Visit Provider Physician Assistant
DX: Z86.711 Personal history of pulmonary embolism (principal); Z79.01 Long term (current) use of anticoagulants
CPT/HCPCS: 85610; 99211; G0463

== ENCOUNTER 2024-07-13 14:24 | Outpatient (CLI) | payer MEDICARE, SELFPAY | END 2024-07-13 14:47 | LOC: ACC 14:24 | PROVIDERS: PCP Nurse Practitioner; Visit Provider Physician Assistant | DX: Z79.01 Long term (current) use of anticoagulants (principal); Z86.718 Personal history of other venous thrombosis and embolism | CPT/HCPCS: 85610; 99211; G0463 ==

== ENCOUNTER 2024-08-10 14:56 | Outpatient (CLI) | payer MEDICARE, SELFPAY ==
[2024-08-10 15:17] LABS: PHA INR Fingerstick 1.9 (0.9-1.1)
== END 2024-08-10 15:19 ==
LOC: ACC 14:57
PROVIDERS: PCP Nurse Practitioner; Visit Provider Physician Assistant
DX: Z79.01 Long term (current) use of anticoagulants (principal); Z86.711 Personal history of pulmonary embolism
CPT/HCPCS: 85610; 99211; G0463

== ENCOUNTER 2024-12-28 15:00 | Outpatient (CLI) | payer MEDICARE, SELFPAY ==
--- OUTSIDE RECORDS SUMMARY | 2024-11-23 11:45 | XMS_ITS | Encounter Summary ---
Author Organization [facility] Address [address] [place] [address] Care Team Providers Care Hydraulic Design Engineer Name Role Phone Myriam Rios FILLER BLENDER Primary Care Provider [phone] Encounter Details Date Type Department Care Team (Latest Contact Info) Description 11/23/2024 11:45 AM EDT Clinical Support [facility] [address] [place] [phone] Recurrent UTI (Primary Dx) Social History Tobacco Use Types Packs/Day Years Used Date Smoking Tobacco: Never Smokeless Tobacco: Never Alcohol Use Standard Drinks/Week Comments Never 0 (1 standard drink = 0.6 oz pur e alcohol) OASIS D0700: Social Isolation Answer Da te Recorded Frequency of experiencing loneliness or isolatio n Never 09/27/2022 OASIS A1250: Transportation Answer Date Recorded Lack of Transportation (Medical) No 09/27/2022 Lack of Transportation (Non-Medical) No 09/27/2022 Patient Unable or Declines to Respond No 09/27/2022 OASIS B1300: Health Literacy Answer Monty e Recorded Frequency of needing help to read materials from doctor or pharmacy Never 09/27/2022 PHQ-2 Answer Date Recorded Retired PHQ-9: Brief Depression Severity Measure Score 0 07/30/2022 PHQ-2 Answer Date Recorded Patient Health Questionnaire-2 Score 0 07/20/2024 Comments Unknown Sex and Gender Information Value Date Recorded Sex Assigned at Female 04/04/2024 7:19 AM EST Legal Sex Female 11:20 AM EDT Gender Identity Not on file Sexual Orientation Straight 04/04/2024 7: 19 AM EST documented as of this encounter Progress Notes * Brendon Tyson MA - 11/23/2024 11:45 AM EDTAddended by: BRENDON TYSON on: 11/23/2024 11:46 AM Modules accepted: Orders * Brendon Tyson MA - 11/23/2024 11:45 AM EDT Urine culture sent documented in this encounter Plan of Treatment Upcoming Encounters Date Type Department Care Team (Late st Contact Info) Description 01/18/2025 2:45 PM EDT Office Visit [facility] [address] [place] [phone] Myriam Rios APRN [address] [place] [address] documented as of this encounter Procedures Procedure Name Priority Date/Time Associated Diagnosis Comments URINE CULTURE Routine 11/23/2024 11:47 AM EDT Recurrent UTI documented in this encounter Results * Urine Culture - Urine, Urine, Clean Catch (11/23/2024 11:47 AM EDT) Urine Culture Final report [facility] Result 1 Comment [facility] Comment: Culture shows less than 10,000 colony forming units of bacteria per milliliter of urine. This colony count is not generally considered to be clinically significant. Urine Urine specimen obtained by clean catch procedure / Unknown 11/23/2024 11:47 AM EDT 11/23/2024 Comment:Urine Release to the medical center [facility] - 11/25/2024 6:37 AM EDT Performed at: [address] [place] [id number] Basket Operator: Vic Freed PhD, Phone: [phone] Myriam Rios APRN MICROBIOLOGY - GENERAL OVI SUE Final Result [facility] [address] [place] [address], [place] [phone] [facility] [address] [place] [address], [place] [phone] documented in this encounter Visit Diagnoses Diagnosis Recurrent UTI- Primary Urinary tract infection, site not specified documented in this encounter Care Teams Hydraulic Design Engineer Relationship Specialty Start Date End Date Myriam Rios APRN [address] [place] [address] PCP - General Family Medicine 07/30/22 documented as of this encounter
--- OUTSIDE RECORDS SUMMARY | 2024-12-28 15:02 | XMS_ITS | Encounter Summary ---
Author Organization Healthcare Address [address] [place] [address] Care Team Providers Care Unit Tender Name Role Phone Edith Correia MD Primary Care Provider [phone] Edith Correia MD Primary Care Provider [phone] Reason for Visit * Reason Onset Date Comments Med Refill 03/24/2022 Encounter Details Date Type Department Care Team (Late st Contact Info) Description 03/24/2022 Refill [facility] [address] [place] [address] Sergio Giron MD [address] [facility] [address] [place] [address] Social History Tobacco Use Types Packs/Day Years Used Date Smoking Tobacco: Never Smokeless Tobacco: Never PHQ-2 Answer Date Recorded Patient Health Questionnaire-2 Score 6 10/10/2020 Comments Unknown Sex and Gender Information Value Date Recorded Sex Assigned at Not on file Legal Sex Female 8:20 PM EDT Gender Identity Not on file Sexual Orientation Not on file documented as of this encounter Miscellaneous Notes * Telephone Encounter - Rachel Saxena - 03/24/2022 11:58 AM EST Attempted to call no answer, left VM documented in this encounter Plan of Treatment Not on file documented as of this encounter Visit Diagnoses Not on filedocumented in this encounter Additional Health Concerns Assessment Noted Time PHQ-9 Depression Total Score: 19 021 8:19 AM EDT A fall risk assessment has been complete d for the patient 11/02/2021 4:49 PM EDT documented as of this encounter Care Teams Unit Tender Relationship Specialty Start Date End Date Edith Correia MD [address] [place] [address] PCP - General 08/08/20 10/04/22 Edith Correia MD [address] [place] [address] PCP - General Family Medicine 10/05/22 12/14/22 documented as of this encounter
--- OUTSIDE RECORDS SUMMARY | 2024-12-28 15:02 | XMS_ITS | Encounter Summary ---
Author Organization Healthcare Address [address] [place] [address] Care Team Providers Care Irrigationist Designer Name Role Phone Edith Correia MD Primary Care Provider [phone] Edith Correia MD Primary Care Provider [phone] Reason for Visit * Reason Comments Med Refill Encounter Details Date Type Department Care Team ([facility] st Contact Info) Description 02/18/2022 Refill [facility] [address] [place] [address] Edith Correia MD [address] [place] [address] Social History Tobacco Use Types Packs/Day Years Used Date Smoking Tobacco: Never Smokeless Tobacco: Never PHQ-2 Answer Date Recorded Patient Health Questionnaire-2 Score 6 10/10/2020 Comments Unknown Sex and Gender Information Value Date Recorded Sex Assigned at Not on file Legal Sex Female 8:20 PM EDT Gender Identity Not on file Sexual Orientation Not on file COVID-19 Exposure Response Date Recorded In the last 10 days, have yo u been in contact with someone who was confirmed or suspected to have Coronavirus/COVID-19? No / Unsure 01/22/2022 9:49 AM EDT documented as of this encounter Miscellaneous Notes * Telephone Encounter - Sergio Giron MD - 02/22/2022 2:41 PM EST Can patient wait until PCP comes back * Telephone Encounter - Angelica Mitchell - 02/18/2022 4:48 PM EST Per protocol, 1 medication(s), divalproex, has been refused due to: Refill requested too soon. Rx sent 08/18/2021 for 90 day supply with 2 refills so pt has enough med thru 05/15/2022. Gabapentin request sent to clinic triage. documented in this encounter Plan of Treatment Not on file documented as of this encounter Visit Diagnoses Not on filedocumented in this encounter Additional Health Concerns Assessment Noted Time PHQ-9 Depression Total Score: 19 021 8:19 AM EDT A fall risk assessment has been complete d for the patient 11/02/2021 4:49 PM EDT documented as of this encounter Care Teams Irrigationist Designer Relationship Specialty Start Date End Date Edith Correia MD [address] [place] [address] PCP - General 08/08/20 10/04/22 Edith Correia MD [address] [place] [address] PCP - General Family Medicine 10/05/22 12/14/22 documented as of this encounter
--- OUTSIDE RECORDS SUMMARY | 2024-12-28 15:03 | XMS_ITS | Encounter Summary ---
Author Organization [facility] Address [address] [place] [address] Care Team Providers Care Developmental Mathematics Instructor Name Role Phone Myriam Rios TUBING TESTER Primary Care Provider [phone] Reason for Visit * Reason Onset Date Comments UTI FOLLOW-UP 11/21/2024 Encounter Details Date Type Department Care Team ([facility] st Contact Info) Description 11/21/2024 Telephone [facility] [address] [place] [phone] Myriam Rios, TUBING TESTER [address] [place] [address] UTI FOLLOW-UP Social History Tobacco Use Types Packs/Day Years [...] AM EST documented as of this encounter Miscellaneous Notes * Telephone Encounter - Doreen Tyson MA - 11/21/2024 12:49 PM EDT Attempted to contact patient no answer or option to leave a voicemail HUB PLEASE SCHEDULE A FOLLOW UP APPOINTMENT * Telephone Encounter - Flaco Boyd RegSched Rep - 11/21/2024 11:44 AM EDT Caller: Amie Trujillo Relationship: Self Best call back number: [phone] What is the best time to reach you: ANY Who are you requesting to speak with (clinical staff, provider, specific staff member): ANY Do you know the name of the person who called: SELF What was the call regarding: PATIENT'S PORTABLE ROUTER OPERATOR IS CURRENTLY TREATING HER FOR A UTI AND WANTS HER TO FOLLOW UP WITH HER PCP. CAN SHE DROP OFF A SAMPLE OF URINE OR DOES SHE NEED TO BE SEEN FOR A FOLLOW-UP? documented in this encounter Plan of Treatment Upcoming Encounters Date Type Department Care Team (Late st Contact Info) Description 01/18/2025 2:45 PM EDT Office Visit [facility] [address] [place] [phone] Myriam Rios APRN [address] [place] [address] documented as of this encounter Visit Diagnoses Not on filedocumented in this encounter Care Teams Developmental Mathematics Instructor Relationship Specialty Start Date End Date Myriam Rios APRN [address] [place], [place] [id number] PCP - General Family Medicine 07/30/22 documented as of this encounter
--- OUTSIDE RECORDS SUMMARY | 2024-12-28 15:03 | XMS_ITS | Encounter Summary ---
Author Organization Healthcare Address [address] [place] [address] Care Team Providers Care Support Worker Name Role Phone Unavailable Primary Care Provider Unavailabl e Reason for Visit * Reason Comments Med Refill Encounter Details Date Type Department Care Team (Late st Contact Info) Description 01/24/2023 Refill [facility] [address] [place] [address] Edith Correia MD [address] [place] [address] Primary hypertension; Heart burn Social History Tobacco Use Types Packs/Day Years Used Date Smoking Tobacco: Never Smokeless Tobacco: Never PHQ-2 Answer Date Recorded Patient Health Questionnaire-2 Score 4 04/02/2022 PHQ-9 Answer Date Recorded Patient Health Questionnaire-9 Score 12 04/02/2022 PHQ-2A Answer Date Recorded Patient Health Questionnaire-2 Score 4 04/02/2022 Comments Unknown Sex and Gender Information Value Date Recorded Sex Assigned at Not on file Legal Sex Female 8:20 PM EDT Gender Identity Not on file Sexual Orientation Not on file documented as of this encounter Plan of Treatment Not on file documented as of this encounter Visit Diagnoses Diagnosis Primary hypertension Unspecified essential hypertension Heart burn Heartburn documented in this encounter Additional Health Concerns Assessment Noted Time PHQ-9 Depression Total Score: 12 023 4:05 PM EST A fall risk assessment has been complete d for the patient 11/02/2021 4:49 PM EDT documented as of this encounter
--- OUTSIDE RECORDS SUMMARY | 2024-12-28 15:03 | XMS_ITS | Encounter Summary ---
Author Organization Healthcare Address [address] [place] [place] [address] Care Team Providers Care Systems Engineering Manager Name Role Phone Unavailable Primary Care Provider Unavailabl e Reason for Visit * Reason Comments Med Refill Encounter Details Date Type Department Care Team (Late st Contact Info) Description 04/21/2023 Refill [facility] [address] [place] [address] Edith Correia MD [address] [place] [address] Heart burn; Primary hypertension Social History Tobacco Use Types Packs/Day Years [...] as of this encounter Visit Diagnoses Diagnosis Heart burn Heartburn Primary hypertension Unspecified essential hypertension documented in this encounter Additional Health Concerns Assessment Noted Time PHQ-9 Depression Total Score: 12 023 4:05 PM EST A fall risk assessment has been complete d for the patient 11/02/2021 4:49 PM EDT documented as of this encounter
--- OUTSIDE RECORDS SUMMARY | 2024-12-28 15:03 | XMS_ITS | Encounter Summary ---
Author Organization [facility] Address [address] [place] [address] Care Team Providers Care Cream Tester Name Role Phone Edith Corriea MD Primary Care Provider Edith Correia MD Primary Care Provider [phone] Reason for Visit * Reason Onset Date Comments Med Refill 07/21/2022 Encounter Details Date Type Department Care Team (Late st Contact Info) Description 07/21/2022 Refill [facility] [address] [place] [address] Edith Correia MD [address] [place] [address] Social History Tobacco Use Types [...] encounter Miscellaneous Notes * Telephone Encounter - Yamila Michaud - 07/22/2022 2:30 PM EDT Pt aware documented in this encounter Plan of Treatment Not on file documented as of this encounter Visit Diagnoses Not on filedocumented in this encounter Additional Health Concerns Assessment Noted Time PHQ-9 Depression Total Score: 12 04/02/ 023 4:05 PM EST A fall risk assessment has been complete d for the patient 11/02/2021 4:49 PM EDT documented as of this encounter Care Teams Cream Tester Relationship Specialty Start Date End Date Edith Correia MD [address] [place] [address] PCP - General 08/08/20 10/04/22 Edith Correia MD [address] [place] [address] PCP - General Family Medicine 10/05/22 12/14/22 documented as of this encounter
--- OUTSIDE RECORDS SUMMARY | 2024-12-28 15:03 | XMS_ITS | Encounter Summary ---
Author Organization [facility] Address [address] [place] [address] Care Team Providers Care Oxyacetylene Torch Operator Name Role Phone Myriam Rios REMELT FURNACE EXPEDITER Primary Care Provider Encounter Details Date Type Department Care Team (Latest Contact Info) Description 11/23/2024 Travel Social History Tobacco Use Types Packs/Day Years [...] AM EST documented as of this encounter Plan of Treatment Upcoming Encounters Date Type Department Care Team ( st Contact Info) Description 01/18/2025 2:45 PM EDT Office Visit [facility] [address] [place] [phone] Myriam Rios APRN [address] [place] [address] documented as of this encounter Visit Diagnoses Not on filedocumented in this encounter Care Teams Oxyacetylene Torch Operator Relationship Specialty Start Date End Date Myriam Rios APRN [address] [place] [address] PCP - General Family Medicine 07/30/22 documented as of this encounter
--- OUTSIDE RECORDS SUMMARY | 2024-12-28 15:03 | XMS_ITS | Encounter Summary ---
Author Organization Healthcare Address [address] [place] [address] Care Team Providers Care Instrumentation Specialist Name Role Phone Unavailable Primary Care Provider Unavailabl e Reason for Visit * Reason Comments Med Refill Encounter Details Date Type Department Care Team (Late st Contact Info) Description 06/02/2023 Refill [facility] [address] [place] [address] Edith Correia MD [address] [place] [address] Heart burn Social History Tobacco Use Types [...] encounter Visit Diagnoses Diagnosis Heart burn Heartburn documented in this encounter Additional Health Concerns Assessment Noted Time PHQ-9 Depression Total Score: 12 023 4:05 PM EST A fall risk assessment has been complete d for the patient 11/02/2021 4:49 PM EDT documented as of this encounter
--- OUTSIDE RECORDS SUMMARY | 2024-12-28 15:03 | XMS_ITS | Encounter Summary ---
Author Organization Healthcare Address [address] [place] [address] Care Team Providers Care Pharmacy Picking Tech Name Role Phone Edith Correia MD Primary Care Provider [phone] Edith Correia MD Primary Care Provider [phone] Reason for Visit * Reason Comments Med Refill Encounter Details Date Type Department Care Team (Late st Contact Info) Description 10/04/2022 Refill [facility] [address] [place] [address] Edith Correia MD [address] [place] [address] Heart burn Social History Tobacco [...] encounter Miscellaneous Notes * Telephone Encounter - Kateryna Galvan APRN - 10/05/2022 4:45 PM EDT Needs appointment with * Telephone Encounter - Edith Fowler - 10/05/2022 2:45 PM EDT Per protocol, 2 medication(s), levothyroxine and famotidine, has been approved for 90 day supply with 1 refill(s) to [facility] pharmacy. documented in this encounter Plan of Treatment Not on file documented as of this encounter Visit Diagnoses Diagnosis Heart burn Heartburn documented in this encounter Additional Health Concerns Assessment Noted Time PHQ-9 Depression Total Score: 12 023 4:05 PM EST A fall risk assessment has been complete d for the patient 11/02/2021 4:49 PM EDT documented as of this encounter Care Teams Pharmacy Picking Tech Relationship Specialty Start Date End Date Edith Correia MD [address] [place] [phone] PCP - General 08/08/20 10/04/22 Edith Correia MD [address] [place] [address] PCP - General Family Medicine 10/05/22 12/14/22 documented as of this encounter
--- OUTSIDE RECORDS SUMMARY | 2024-12-28 15:03 | XMS_ITS | Encounter Summary ---
Author Organization Healthcare Address [address] [place] [address] Care Team Providers Care Career Resource Technician Name Role Phone Edith Correia MD Primary Care Provider [phone] Edith Correia MD Primary Care Provider [phone] Encounter Details Date Type Department Care Team (Late st Contact Info) Description 11/02/2021 Outside Procedure External Location [address] [place] [address] Edith Correia MD [address] [place] [address] Social History Tobacco Use Types Packs/Day [...] suspected to have Coronavirus/COVID-19? No / Unsure 11/02/2021 4:41 PM EDT documented as of this encounter Plan of Treatment Not on file documented as of this encounter Procedures Procedure Name Priority Date/Time Associated Diagnosis Comments XR HIP RIGHT 2 OR 3 VIEWS 11/02/2021 5:35 PM EDT documented in this encounter Results * XR Hip Right 2 or 3 Views (11/02/2021 5:35 PM EDT) Anatomical Region Laterality Modality Lower Extremities, Hip Right Radiograp hic Imaging 11/02/2021 5:35 PM EDT Narrative 11/03/2021 8:31 [place] [address] Name: AMIE TRUJILLO Exam Date: 11/02/2021 : 1960 Age 61 Gender: F Physician: Edith Correia Facility: [facility] Facility HSV: Outpatient Exam: HIP 2 VIEW RT RIGHT HIP CLINICAL HISTORY: Hip pain. FINDINGS: AP and lateral views of the right hip show no acute bony abnormality. The hip joint space is mildly narrowed. Soft tissues are unremarkable. IMPRESSION: Mild degenerative change without acute bony abnormality. Films reviewed , interpreted and dictated by Dr. Cristobal Niño Transcribed by Rk Main PA-C. Dictated By: Cristobal Coopre Transcribed By: Cristobal Niño Transcribed On: 11/03/2021 8:18 AM Electronically signed by: Cristobal Cooper 11/03/2021 Thank you for referring AMIE TRUJILLO to [facility]. Legally authenticated by JAY MCKEON 2021-11-03 08:18:52 Procedure Note Provider, Generic [place] - 11/03/2021 [place] [address] Name: AMIE TRUJILLO Exam Date: 11/02/2021 : 1960 Age 61 Gender: F Physician: Edith Correia Facility: [facility] Facility HSV: Outpatient Exam: HIP 2 VIEW RT RIGHT HIP CLINICAL HISTORY: Hip pain. FINDINGS: AP and lateral views of the right hip show no acute bony abnormality. The hip joint space is mildly narrowed. Soft tissues are unremarkable. IMPRESSION: Mild degenerative change without acute bony abnormality. Films reviewed , interpreted and dictated by Dr. Cristobal Niño Transcribed by Rk Main PA-C. Dictated By: Cristobal Cooper Transcribed By: Cristobal Niño Transcribed On: 11/03/2021 8:18 AM Electronically signed by: Cristobal Cooper 11/03/2021 Thank you for referring AMIE TRUJILLO to [facility]. Legally authenticated by JAY MCKEON 2021-11-03 08:18:52 us Edith Correia MD IMG XR PROCEDURES Final Resul t documented in this encounter Visit Diagnoses Not on filedocumented in this encounter Additional Health Concerns Assessment Noted Time PHQ-9 Depression Total Score: 19 021 8:19 AM EDT A fall risk assessment has been complete d for the patient 11/02/2021 4:49 PM EDT documented as of this encounter Care Teams Career Resource Technician Relationship Specialty Start Date End Date Edith Correia MD [address] [place] [address] PCP - General 08/08/20 10/04/22 Edith Correia MD [address] [place] [address] PCP - General Family Medicine 10/05/22 12/14/22 documented as of this encounter
--- OUTSIDE RECORDS SUMMARY | 2024-12-28 15:03 | XMS_ITS | Encounter Summary ---
Author Organization [facility] Address [address] [place] [address] Care Team Providers Care Drill Sharpener Operator Name Role Phone Myriam Rios ANNEALING FURNACE OPERATOR Primary Care Provider [phone] Reason for Visit * Reason Onset Date Comments SAMPLES 11/13/2024 Encounter Details Date Type Department Care Team ([facility] st Contact Info) Description 11/13/2024 Telephone [facility] [address] [place] [address] Myriam Rios, ANNEALING FURNACE OPERATOR [address] [place] [address] SAMPLES Social History Tobacco Use Types Packs/Day Years [...] encounter Miscellaneous Notes * Telephone Encounter - Arcelia Stone MA - 11/13/2024 9:05 AM EDT Samples of vraylar left at front end engineer for pt. * Telephone Encounter - Amanda Drake RegSched Rep - 11/13/2024 8:56 AM EDT Caller: Amie Trujillo Relationship:SELF Callback number: Telephone Information: Is it ok to leave a message: [] Yes [] No Requested medication for samples: Cariprazine HCl (VRAYLAR) 3 MG capsule capsule How much medication does the patient currently have left: WEEK AND A HALF documented in this encounter Plan of Treatment Upcoming Encounters Date Type Department Care Team (Late st Contact Info) Description 01/18/2025 2:45 PM EDT Office Visit [facility] [address] [place] [phone] Myriam Rios APRN [address] [place] [address] documented as of this encounter Visit Diagnoses Diagnosis Anxiety and depression- Primary documented in this encounter Care Teams Drill Sharpener Operator Relationship Specialty Start Date End Date Myriam Rios APRN [address] [place] [address] PCP - General Family Medicine 07/30/22 documented as of this encounter
--- OUTSIDE RECORDS SUMMARY | 2024-12-28 15:03 | XMS_ITS | Encounter Summary ---
Author Organization Healthcare Address [address] [place] [address] Care Team Providers Care Roller Turner Name Role Phone Edith Correia MD Primary Care Provider [phone] Edith Correia MD Primary Care Provider [phone] Encounter Details Date Type Department Care Team (Late st Contact Info) Description 11/02/2021 Outside Procedure External Location [address] [place] [address] Edith Correia MD [address] [place] [address] Social History Tobacco Use Types Packs/Day [...] Name Priority Date/Time Associated Diagnosis Comments XR CHEST 2 VIEWS 11/02/2021 5:34 PM EDT documented in this encounter Results * XR Chest 2 Views (11/02/2021 5:34 PM EDT) Anatomical Region Laterality Modality Chest Radiographic Idalmis ging 11/02/2021 5:34 PM EDT Narrative 11/03/2021 8:29 [place] [address] Name: AMIE TRUJILLO Exam Date: 11/02/2021 : 1960 Age 61 Gender: F Physician: Edith Correia Facility: [facility] Facility HSV: Outpatient Exam: CHEST 2 VIEWS CHEST, 2 VIEWS HISTORY: Shortness of breath COMPARISON: None FINDINGS: The heart and mediastinum are unremarkable. There is evidence of old granulomatous disease. The lungs are clear without evidence of acute infiltrate or effusion. The bony structures are intact. IMPRESSION: No acute process. Films reviewed , interpreted and dictated by Dr. Cristobal Niño Transcribed by Rk Main PA-C. Dictated By: Cristobal Cooper Transcribed By: Cristobal Niño Transcribed On: 11/03/2021 8:18 AM Electronically signed by: Cristobal Cooper 11/03/2021 Thank you for referring AMIE TRUJILLO to [facility]. Legally authenticated by JAY MCKEON 2021-11-03 08:18:18 Procedure Note Provider, Generic [place] - 11/03/2021 [place] [address] Name: AMIE TRUJILLO Exam Date: 11/02/2021 : 1960 Age 61 Gender: F Physician: Edith Correia Facility: [facility] Facility HSV: Outpatient Exam: CHEST 2 VIEWS CHEST, 2 VIEWS HISTORY: Shortness of breath COMPARISON: None FINDINGS: The heart and mediastinum are unremarkable. There is evidence ofold granulomatous disease. The lungs are clear without evidence of acute infiltrate or effusion. The bony structures are intact. IMPRESSION: No acute process. Films reviewed , interpreted and dictated by Dr. Cristobal Niño Transcribed by Rk Main PA-C. Dictated By: Cristobal Cooper Transcribed By: Cristobal Niño Transcribed On: 11/03/2021 8:18 AM Electronically signed by: Cristobal Cooper 11/03/2021 Thank you for referring AMIE TRUJILLO to [facility]. Legally authenticated by JAY MCKEON 2021-11-03 08:18:18 us Edith Correia MD IMG XR PROCEDURES Final Resul t documented in this encounter Visit Diagnoses Not on filedocumented in this encounter Additional Health Concerns Assessment Noted Time PHQ-9 Depression Total Score: 19 021 8:19 AM EDT A fall risk assessment has been complete d for the patient 11/02/2021 4:49 PM EDT documented as of this encounter Care Teams Roller Turner Relationship Specialty Start Date End Date Edith Correia MD [address] [place] [address] PCP - General 08/08/20 10/04/22 Edith Correia MD [address] [place] [address] PCP - General Family Medicine 10/05/22 12/14/22 documented as of this encounter
--- OUTSIDE RECORDS SUMMARY | 2024-12-28 15:03 | XMS_ITS | Encounter Summary ---
Author Organization [facility] Address [address] [place] [address] Care Team Providers Care Coffee Shop Manager Name Role Phone Myriam Rios HOUSING AND RESIDENCE LIFE DIRECTOR Primary Care Provider [phone] Encounter Details Date Type Department Care Team (Late st Contact Info) Description 11/28/2024 Results Follow-Up [facility] [address] [place] [address] Myriam Rios, HOUSING AND RESIDENCE LIFE DIRECTOR [address] [place], [place] [phone] Social History Tobacco Use Types Packs/Day Years [...] Description 01/18/2025 2:45 PM EDT Office Visit [facility] [address] [place] [address] Myriam Rios, HOUSING AND RESIDENCE LIFE DIRECTOR [address] [place] [address] documented as of this encounter Visit Diagnoses Not on filedocumented in this encounter Care Teams Coffee Shop Manager Relationship Specialty Start Date End Date Myriam Rios, HOUSING AND RESIDENCE LIFE DIRECTOR [address] [place] [address] PCP - General Family Medicine 07/30/22 documented as of this encounter
--- OUTSIDE RECORDS SUMMARY | 2024-12-28 15:03 | XMS_ITS | Encounter Summary ---
Author Organization Healthcare Address [address] [place] [address] Care Team Providers Care Central Supply Technician Name Role Phone Unavailable Primary Care Provider Unavailabl e Reason for Visit * Reason Comments Med Refill Encounter Details Date Type Department Care Team (Late st Contact Info) Description 11/01/2023 Refill [facility] [address] [place] [address] Edith Correia MD [address] [place] [address] Social History Tobacco Use Types [...] * Telephone Encounter - Yamila Michaud - 11/03/2023 8:36 AM EDT Pt is no longer on this medication and no longer sees Dr. Correia documented in this encounter Plan of Treatment [...]
--- OUTSIDE RECORDS SUMMARY | 2024-12-28 15:03 | XMS_ITS | Encounter Summary ---
Author Organization [facility] Address [address] [place] [address] Care Team Providers Care Motor Lodge Clerk Name Role Phone Myriam Rios FOOD QUALITY TESTER Primary Care Provider [phone] Reason for Visit * Reason Comments Med Refill Encounter Details Date Type Department Care Team (Late st Contact Info) Description 12/15/[address] [facility] [address] [place] [phone] Myriam Rios, FOOD QUALITY TESTER [address] [place], [place] [phone] Chronic pain syndrome Social History Tobacco Use Types Packs/Day Years [...] encounter Miscellaneous Notes * Telephone Encounter - Oriana Vail - 12/17/2024 8:47 AM EDT Last seen on 09/14/2024. Follow up scheduled for 01/18/2025. TF documented in this encounter Plan of Treatment Upcoming Encounters Date Type Department Care Team (Late st Contact Info) Description 01/18/2025 2:45 PM EDT Office Visit [facility] [address] [place] [phone] Myriam Rios APRN [address] [place] [address] documented as of this encounter Visit Diagnoses Diagnosis Chronic pain syndrome documented in this encounter Care Teams Motor Lodge Clerk Relationship Specialty Start Date End Date Myriam Rios APRN [address] [place] [address] PCP - General Family Medicine 07/30/22 documented as of this encounter
--- OUTSIDE RECORDS SUMMARY | 2024-12-28 15:03 | XMS_ITS | Encounter Summary ---
Author Organization [facility] Address [address] [place] [address] Care Team Providers Care Embroidery Designer Name Role Phone Myriam Rios INSULATOR TESTER Primary Care Provider [phone] Reason for Visit * Reason Comments Med Refill Encounter Details Date Type Department Care Team (Late st Contact Info) Description 11/08/2024 Refill [facility] [address] [place] [phone] Myriam Rios, INSULATOR TESTER [address] [place], [place] [phone] Social History Tobacco Use Types Packs/Day Years [...] Telephone Encounter - Doreen Tyson MA - 11/08/2024 8:14 AM EDT Rx sent documented in this encounter Plan of Treatment Upcoming Encounters Date Type Department Care Team (Late st Contact Info) Description 01/18/2025 2:45 PM EDT Office Visit [facility] [address] [place] [phone] Myriam Rios APRN [address] [place] [address] documented as of this encounter Visit Diagnoses Not on filedocumented in this encounter Care Teams Embroidery Designer Relationship Specialty Start Date End Date Myriam Rios, INSULATOR TESTER [address] [place] [address] PCP - General Family Medicine 07/30/22 documented as of this encounter
--- OUTSIDE RECORDS SUMMARY | 2024-12-28 15:03 | XMS_ITS | Encounter Summary ---
Author Organization [facility] Address [address] [place] [address] Care Team Providers Care Speech Pathologist Assistant Name Role Phone Myriam Rios CLASSIFIED ADVERTISING CLERK Primary Care Provider [phone] Reason for Visit * Reason Comments Med Refill Encounter Details Date Type Department Care Team (Late st Contact Info) Description 11/15/2024 Refill [facility] [address] [place] [phone] Myriam Rios, CLASSIFIED ADVERTISING CLERK [address] [place], [place] [phone] Chronic pain syndrome Social History Tobacco Use [...] Description 01/18/2025 2:45 PM EDT Office Visit [facility] [address] [place] [phone] Myriam Rios, CLASSIFIED ADVERTISING CLERK [address] [place] [address] documented as of this encounter Visit Diagnoses Diagnosis Chronic pain syndrome documented in this encounter Care Teams Speech Pathologist Assistant Relationship Specialty Start Date End Date Myriam Rios, CLASSIFIED ADVERTISING CLERK [address] [place] [address] PCP - General Family Medicine 07/30/22 documented as of this encounter
--- OUTSIDE RECORDS SUMMARY | 2024-12-28 15:03 | XMS_ITS | Encounter Summary ---
Author Organization [facility] Address [address] [place] [address] Care Team Providers Care Brazer Assembler Name Role Phone Myriam Rios CHIEF INNOVATION OFFICER Primary Care Provider [phone] Reason for Visit * Reason Comments Med Refill Encounter Details Date Type Department Care Team ([facility] st Contact Info) Description 12/20/2024 Refill [facility] [address] [place] [phone] Myriam Rios, CHIEF INNOVATION OFFICER [address] [place], [place] [phone] Social History Tobacco Use Types Packs/Day Years [...] Telephone Encounter - Doreen Tyson MA - 12/20/2024 7:13 AM EDT Rx sent documented in this encounter Plan of Treatment Upcoming Encounters Date Type Department Care Team (Late st Contact Info) Description 01/18/2025 2:45 PM EDT Office Visit [facility] [address] [place] [phone] Myriam Rios APRN [address] [place] [address] documented as of this encounter Visit Diagnoses Not on filedocumented in this encounter Care Teams Brazer Assembler Relationship Specialty Start Date End Date Myriam Rios, CHIEF INNOVATION OFFICER [address] [place] [address] PCP - General Family Medicine 07/30/22 documented as of this encounter
--- OUTSIDE RECORDS SUMMARY | 2024-12-28 15:03 | XMS_ITS | Encounter Summary ---
Author Organization [facility] Address [address] [place] [address] Care Team Providers Care Accuracy Expert Name Role Phone Edith Correia MD Primary Care Provider [phone] Edith Correia MD Primary Care Provider [phone] Reason for Visit * Reason Comments Med Refill Encounter Details Date Type Department Care Team (Late st Contact Info) Description 01/18/2022 Refill [facility] [address] [place] [address] Edith Correia MD [address] [place] [address] Heart burn Social History Tobacco [...] * Telephone Encounter - Yamila Michaud - 01/21/2022 3:10 PM EDT Pt advised that labs are needed * Telephone Encounter - Rachel Saxena - 01/20/2022 11:51 AM EDT Attempted to call no answer, left VM * Telephone Encounter - Cande Quick PharmD - 01/20/2022 8:41 AM EDT Per protocol, 2 medication(s), Famotidine and Pravastatin, has been approved for 90 day supply with1 refill(s). The medication refill request(s) has been sent to [facility] pharmacy. documented in this encounter Plan [...] documented as of this encounter Care Teams Accuracy Expert Relationship Specialty Start Date End Date Edith Correia MD [address] [place] [address] PCP - General 08/08/20 10/04/22 Edith Correia MD [address] [place] [address] PCP - General Family Medicine 10/05/22 12/14/22 documented as of this encounter
--- OUTSIDE RECORDS SUMMARY | 2024-12-28 15:03 | XMS_ITS | Encounter Summary ---
Author Organization Healthcare Address [address] [place] [address] Care Team Providers Care Commercial Account Officer Name Role Phone Edith Correia MD Primary Care Provider [phone] Edith Correia MD Primary Care Provider [phone] Encounter Details Date Type Department Care Team (Late st Contact Info) Description 06/19/2021 Outside Procedure External Location [address] [place] [address] Provider, [facility] Social History Tobacco Use Types Packs/Day Years [...] Procedure Name Priority Date/Time Associated Diagnosis Comments CT ABDOMEN PELVIS WO IV CONTRAST 06/19/2021 12:34 PM EDT documented in this encounter Results * CT Abdomen Pelvis wo IV Contrast (06/19/2021 12:34 PM EDT) Anatomical Region Laterality Modality Abdomen, Pelvis Computed Tomogra phy 06/19/2021 12:3 4 PM EDT Narrative 06/19/2021 3:39 PM EDT [address] [address] Name: AMIE TRUJILLO Exam Date: 06/19/2021 : 1960 Age 61 Gender: F Physician: Napoleon Turner Facility: [facility] Facility HSV: Outpatient Exam: CT ABD PEL W/O CT ABDOMEN AND PELVIS TECHNIQUE: Oral contrast without intravenous contrast administration. HISTORY: Urinary tract infection. Hematuria. COMPARISON: None. FINDINGS: Abdomen: Kidneys show no obstruction or stone disease. No obvious renal mass is present. Mild fatty infiltration of liver is noted. Remaining solid organs are normal. Gallbladder is unremarkable. No bowel obstruction is seen. Pelvis: Mild diverticular disease of distal colon is noted. Uterus and ovaries are unremarkable. Appendix is normal. No pelvic mass or free fluid is seen. IMPRESSION: No evidence of urinary tract obstruction or stone disease. This study was performed using automated techniques to achieve radiation exposure as low as reasonably achievable. Dictated By: JOSÉ MIGUEL HUTCHISON Transcribed By: bettie thorne Transcribed On: 06/19/2021 2:54 PM Electronically signed by: JOSÉ MIGUEL HUTCHISON 06/19/2021 Thank you for referring AMIE TRUJILLO to [facility]. Legally authenticated by FOSTER GUNN 2021-06-19 15:28:47 Procedure Note Provider, [facility] 06/19/2021 [place] [address] Name: AMIE TRUJILLO Exam Date: 06/19/2021 : 1960 Age 61 Gender: F Physician: Napoleon Turner Facility: [facility] Facility HSV: Outpatient Exam: CT ABD PEL W/O CT ABDOMEN AND PELVIS TECHNIQUE: Oral contrast without intravenous contrast administration. HISTORY: Urinary tract infection. Hematuria. COMPARISON: None. FINDINGS: Abdomen: Kidneys show no obstruction or stone disease. No obvious renalmass is present. Mild fatty infiltration of liver is noted. Remaining solid organs are normal. Gallbladder is unremarkable. No bowel obstruction is seen. Pelvis: Mild diverticular disease of distal colon is noted. Uterus and ovaries are unremarkable. Appendix is normal. No pelvic mass or freefluid is seen. IMPRESSION: No evidence of urinary tract obstruction or stone disease. This study was performed using automated techniques to achieve radiation exposure as low as reasonably achievable. Dictated By: JOSÉ MIGUEL HUTCHISON Transcribed By: bettie thorne Transcribed On: 06/19/2021 2:54 PM Electronically signed by: JOSÉ MIGUEL HUTCHISON 06/19/2021 Thank you for referring AMIE TRUJILLO to [facility]. Legally authenticated by FOSTER GUNN 2021-06-19 15:28:47 us Generic [place] Provider IMG CT PROCEDURES Fi nal Result documented in this encounter Visit Diagnoses Not on filedocumented in this encounter Additional Health Concerns Assessment Noted Time PHQ-9 Depression Total Score: 19 10/10/ 021 8:19 AM EDT documented as of this encounter Care Teams Commercial Account Officer Relationship Specialty Start Date End Date Edith Correia MD [address] [place] [address] PCP - General 08/08/20 10/04/22 Edith Correia MD [address] [place] [address] PCP - General Family Medicine 10/05/22 12/14/22 documented as of this encounter
--- OUTSIDE RECORDS SUMMARY | 2024-12-28 15:03 | XMS_ITS | Encounter Summary ---
Author Organization Healthcare Address [address] [place] [address] Care Team Providers Care Tandem Mill Operator Name Role Phone Edith Correia MD Primary Care Provider [phone] Edith Correia MD Primary Care Provider [phone] Reason for Visit * Reason Onset Date Comments Med Refill 05/18/2022 Encounter Details Date Type Department Care Team (Late st Contact Info) Description 05/18/2022 Refill [facility] [address] [place] [address] Edith Correia MD [address] [place] [address] Social History Tobacco Use Types [...] suspected to have Coronavirus/COVID-19? No / Unsure 05/21/2022 1:24 PM EST documented as of this encounter Plan of Treatment Not on file documented as of this encounter Visit Diagnoses Not on filedocumented in this encounter Additional Health Concerns Assessment Noted Time PHQ-9 Depression Total Score: 12 023 4:05 PM EST A fall risk assessment has been complete d for the patient 11/02/2021 4:49 PM EDT documented as of this encounter Care Teams Tandem Mill Operator Relationship Specialty Start Date End Date Edith Correia MD [address] [place] [address] PCP - General 08/08/20 10/04/22 Edith Correia MD [address] [place] [address] PCP - General Family Medicine 10/05/22 12/14/22 documented as of this encounter
--- OUTSIDE RECORDS SUMMARY | 2024-12-28 15:03 | XMS_ITS | Encounter Summary ---
Author Organization [facility] Address [address] [place] [address] Care Team Providers Care Band Tacker Name Role Phone Myriam Rios REFERENCE ARCHIVIST Primary Care Provider [phone] Reason for Visit * Reason Comments Med Refill Encounter Details Date Type Department Care Team (Late st Contact Info) Description 12/09/2024 Refill [facility] [address] [place] [id number] Myriam Rios, REFERENCE ARCHIVIST [address] [place], [place] [id number] Social History Tobacco Use Types Packs/Day Years [...] Telephone Encounter - Doreen Tyson MA - 12/10/2024 7:46 AM EDT Rx sent documented in this encounter Plan of Treatment Upcoming Encounters Date Type Department Care Team (Late st Contact Info) Description 01/18/2025 2:45 PM EDT Office Visit [facility] [address] [place] [phone] Myriam Rios APRN [address] [place] [address] documented as of this encounter Visit Diagnoses Not on filedocumented in this encounter Care Teams Band Tacker Relationship Specialty Start Date End Date Myriam Rios, REFERENCE ARCHIVIST [address] [place] [address] PCP - General Family Medicine 07/30/22 documented as of this encounter
--- OUTSIDE RECORDS SUMMARY | 2024-12-28 15:03 | XMS_ITS | Clinical Summary ---
Author Organization [facility] Address [address] [place] [address] Care Team Providers Care Forcer Maker Name Role Phone BlancaLiyah salvador Reji PETERSON Primary Care Provider Allergies Active Allergy Reactions Criticality Noted Date Comments Penicillins Rash Low 07/30/2022 Medications vitamin D (ERGOCALCIFERO L) 1.25 MG (37275 UT) capsule capsule TAKE 1 CAPSULE BY MOUTH ONCE A MONTH 07/22/19 23 Active furosemide (LASIX) 20 MG tablet Take 1 tablet by mouth 2 (Two) Times a Day. Active rivaroxaban (XARELTO) 20 MG tablet 1 tablet. 07/22/19 24 Active metoprolol succinate XL (TOPROL-XL) 25 MG 24 hr tablet Take 1 tablet by mouth Daily. 11/07/19 24 Active buPROPion XL (Wellbutrin XL) 300 MG 24 hr tablet Take 1 tablet by mouth Daily. 90 tablet 2 04/11/19 25 Active busPIRone (BUSPAR) 15 MG tablet TAKE 1 TABLET BY MOUTH THREE TIMES A DAY 270 tablet 1 07/03/19 25 Active albuterol sulfate HFA 108 (90 Base) MCG/ACT inhaler INHALE 2 PUFFS EVERY 4 (FOUR) HOURS NEEDED FOR SHORTNESS OF AIR OR WHEEZING. 18 g 2 09/04/19 25 Active QUEtiapine (SEROquel) 200 MG tabletIndicati ons:Primary insomnia Take 1 tablet by mouth Every Night. 90 tablet 2 09/15/19 25 Active hydrOXYzine (ATARAX) 10 MG tabletIndicati ons:Anxiety and depression Take 1 tablet by mouth 3 (Three) Times a Day As Needed for Anxiety. 30 tablet 1 09/15/19 25 Active QUEtiapine (SEROquel) 200 MG tablet Take 1 tablet by mouth Every Night. 30 tablet 1 09/27/19 25 Active rivaroxaban (XARELTO) 15 MG tablet Take 1 tablet by mouth Daily. 70 tablet 09/27/19 25 Active levothyroxine (SYNTHROID, LEVOTHROID) 75 MCG tablet TAKE 1 TABLET BY MOUTH EVERY DAY 90 tablet 2 10/11/19 25 Active Rivaroxaban (XARELTO) 2.5 MG tablet daily 60 tablet 10/18/19 25 Active rivaroxaban (XARELTO) 20 MG tablet daily 30 tablet 10/18/19 25 Active Cariprazine HCl (Vraylar) 3 MG capsule capsule Take 1 capsule by mouth Daily. 30 capsule 10/18/19 25 Active famotidine (PEPCID) 40 MG tablet TAKE 1 TABLET BY MOUTH EVERY DAY 90 tablet 11/09/19 25 Active Cariprazine HCl (VRAYLAR) 3 MG capsule capsuleIndicat ions:Anxiety and depression Take 1 capsule by mouth Daily. 90 capsule 2 11/14/19 25 Active oxybutynin (DITROPAN) 5 MG tablet TAKE 1 TABLET BY MOUTH THREE TIMES A DAY 90 tablet 1 12/11/19 25 Active gabapentin (NEURONTIN) 300 MG capsuleIndicat ions:Chronic pain syndrome TAKE 1 CAPSULE BY MOUTH EVERY 12 HOURS 60 capsule 12/18/19 25 Active pravastatin (PRAVACHOL) 20 MG tablet TAKE 1 TABLET BY MOUTH EVERY DAY 90 tablet 2 12/21/19 25 Active pravastatin (PRAVACHOL) 20 MG tablet TAKE 1 TABLET BY MOUTH EVERY DAY 90 tablet 2 03/26/20 24 025 Discontinued oxybutynin (DITROPAN) 5 MG tablet Take 1 tablet by mouth 3 (Three) Times a Day. 90 tablet 1 10/11/19 25 025 Discontinued gabapentin (NEURONTIN) 300 MG capsuleIndicat ions:Chronic pain syndrome TAKE 1 CAPSULE BY MOUTH EVERY 12 HOURS 60 capsule 11/16/19 25 025 Discontinued Active Problems Problem Noted Date Diagnosed Date Primary insomnia 09/14/2024 Assessment & Plan (09/20/2024 5:55 PM EDT): Patient has been on Seroquel 100 mg nightly at bedtime for quite some time with adequate with benefit until the last several months. Currently patient has no trouble initiating sleep, however she will wake up between 2 and 4 AM unable to get back to sleep. She states most nights her bedtime is around 9 PM - Will increase Seroquel to 200 mg nightly and continue to monitor Difficulty walking 08/16/2024 Mixed stress and urge urinary incontinence 08/09 Assessment & Plan (09/20/2024 5:59 PM EDT): Patient endorsed worsening urinary incontinence over the last 2 months, soaking both of breve and pad about every 2 hours. Patient has endorsed at times she would not even know she needs to urinate until she is already soaked. She is initially given prescription for oxybutynin XL 5 mg daily, however contacted the office stating this was ineffective. She was then given prescription for myrtbetric, but has been unable to cover the cost associated with that medication. We have discussed referral to urology which she declines at this time Assessment & Plan (08/12/2024 8:20 AM EDT): Patient with increased urinary incontinence over the last month, soaking both a brief and pad about every 2 hours. She states at times she will not even know she needs to urinate until she is already gone. Patient not currently taking any medication for overactive bladder, will initiate oxybutynin XL 5 mg daily. Patient will advise if no improvement Prediabetes 07/24/2024 Assessment & Plan (09/20/2024 5:56 PM EDT): Patient's most recent hemoglobin A1c 6.0%. 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 Patient initially utilized Xarelto 20 mg daily for anticoagulation, however that medication ultimately became a financial burden prompting transition to warfarin with frequent INR checks and titrations. The uncertainty associated with warfarin increased her anxiety. We have been able to transition patient back to Xarelto at 20 mg daily dosing with samples. Assessment & Plan (08/12/2024 8:19 AM EDT): Patient continues to be followed by cardiology at [facility] after suffering multiple segmental pulmonary emboli in 2023. Patient initially utilized Xarelto 20 mg daily for anticoagulation, however that medication ultimately became a financial burden prompting transition to warfarin with frequent INR checks and titrations. Patient states it is heightening her anxiety to be on warfarin and is inconvenienced by frequent INR checks. She would ultimately like to find a way to get back on her Xarelto. - We are able to provide patient samples of Xarelto 20 mg daily, however need to ensure that her INR is below 3 before discontinuing warfarin. Patient states that she has appoint with cardiology next week at which time they will check her INR, if therapeutic will come by office to chart picker her Xarelto samples. Assessment & Plan (07/24/2024 10:24 AM EDT): Patient continues to be followed by cardiology at [facility] after suffering multiple segmental pulmonary emboli last year. Patient's anticoagulation has been maintained on Xarelto 20 mg daily, however once that became a financial burden she is now being transition to use of warfarin with frequent INR checks and titrations. Assessment & Plan (04/12/2024 8:39 AM EST): Seven months ago patient required admission to [facility] where she was found to have extensive pulmonary emboli. She continues to utilize Xarelto 20 mg daily for anticoagulation. No recent issues with chest pain, shortness of breath. Assessment & Plan (01/06/2024 3:37 PM EDT): 4 months ago patient required admission to [facility] where she was found to have extensive pulmonary emboli as well as cardiac involvement. She had follow-up with cardiology approximately 4 weeks ago with good report stability noted. She continues to utilize Xarelto 20 mg daily for anticoagulation. Assessment & Plan (12/16/2023 4:26 PM EDT): Four months ago patient was admitted to [facility] where she was found to have extensive pulmonary emboli as well as cardiac involvement. She just had follow-up with cardiology yesterday with a good report. She continues to utilize Xarelto 20 mg daily. Assessment & Plan (07/28/2023 11:49 AM EDT): Patient presents for evaluation of today after 4-day stay at [facility]. Patient states she had had a prolonged course of shortness of air and mild chest heaviness. This progressively worsened over the last 4 to 6 weeks. She notes on July 15 she became significantly short of breath at which time she sought evaluation at [facility]. Upon evaluation she was found to have extensive pulmonary emboli as well as cardiac involvement per her 's report. She was transferred to [facility] where she was admitted to the intensive care unit and underwent cardiac cath procedure for removal of clots?. We have requested records from [facility] for a more detailed account. Patient is now anticoagulated with Xarelto 20 mg daily. She states she feels much better but admittedly has some anxiety that this will recur. Physical deconditioning 04/01/2023 Assessment & Plan (04/01/2023 7:42 PM EST): Patient has been very sedentary for the last several years. This is certainly contributory to her fatigue. Discussed benefits of PT which she failed to comply with in the past. She is agreeable to participate at this time. Referral place. At risk for sleep apnea 04/01/2023 Assessment & Plan (09/14/2024 2:49 PM EDT): Hasn't heard from patient aids Assessment & Plan (08/12/2024 8:16 AM EDT): Patient last evaluated in our office approximately 2 weeks ago with complaints of chronic fatigue and brain fog. She had been told by her she had significant snoring, additional risk criteria for sleep apnea includes her large neck circumference and morbid obesity. Her previous PCP had attempted to have her complete a sleep study at which time she declined. During that visit we again discussed pursuing sleep apnea study. Patient was agreeable and therefore referred to Dr. Stiles in [place] due to location. Patient tells me that Dr. Ross would like to have a sleep study conducted before seeing her. - Home sleep study ordered through patient aids Assessment & Plan (07/24/2024 10:27 AM EDT): Patient with complaints of chronic fatigue and brain fog. She has been told by her she has significant snoring. She has large neck circumference and is morbidly obese. Previous PCP attempted to have her complete sleep study at which time she declined. Patient agreed to pursue sleep study in March 2023 so referral was placed to Dr. Stauffer, however patient declined to make appointment when called. We discussed again today pursuing apnea study. We discussed improved symptoms of fatigue with treatment of apnea, we also discussed that potentially if it diagnosed with obstructive sleep apnea would not pursue to GLP-1 medication Jhonathanvy. Patient is agreeing for referral back to sleep medicine follow through with the appointment this would like to go to [facility]. Assessment & Plan (01/06/2024 3:35 PM EDT): Patient with complaints of chronic fatigue and brain fog. She has been told by her she has significant snoring. She has large neck circumference and is morbidly obese. Previous PCP attempted to have her complete sleep study at which time she declined. Patient agreed to pursue sleep study in March 2023 so referral was placed to Dr. Stauffer, however patient declined to make appointment when called. We discussed again today pursuing apnea study but she declines Assessment & Plan (04/01/2023 7:46 PM EST): Patient with complaints of chronic fatigue and brain fog. She has been told by her she has significant snoring. She has large neck circumference and is morbidly obese. Previous PCP attempted to have her complete sleep study at which time she declined but is now agreeable. -Refer to Dr. Stauffer for apnea eval Chronic pain syndrome 04/01/2023 Assessment & Plan (07/24/2024 10:25 AM EDT): She continues to utilize gabapentin for diffuse myalgia with good benefit. She has had thorough lab work and diagnostics without any particular etiology for her myalgias. I made referral for physical therapy which she failed to pursue due to deconditioning. Patient UDS and controlled substance agreement up to date. Will continue current dose of gabapentin 300 mg twice daily Assessment & Plan (04/12/2024 8:38 AM EST): She continues to utilize gabapentin for diffuse myalgia with good benefit. She has had thorough lab work and diagnostics without any particular etiology for her myalgias. I made referral for physical therapy which she failed to pursue due to deconditioning. Patient UDS and controlled substance agreement up to date. Will continue current dose of gabapentin 300 mg twice daily Assessment & Plan (01/06/2024 3:35 PM EDT): She continues to utilize gabapentin for diffuse myalgia with good benefit. She has had thorough lab work and diagnostics without any particular etiology for her myalgias. I made referral for physical therapy which she failed to pursue due to deconditioning. Patient UDS and controlled substance agreement up to date. Will continue current dose of gabapentin 300 mg twice daily Assessment & Plan (12/16/2023 4:24 PM EDT): She continues to utilize gabapentin for diffuse myalgia with good benefit. She has had thorough lab work and diagnostics without any particular etiology for her myalgias. I made referral for physical therapy which she failed to pursue due to deconditioning. Patient UDS and controlled substance agreement updated in office today. Will continue current dose of gabapentin 300 mg twice daily Assessment & Plan (07/28/2023 11:42 AM EDT): Patient on gabapentin for diffuse myalgia with good benefit. Reviewed and discussed controlled substance agreement. PATTYMIGUELITO manuel. Continue gabapenting 300mg BID Assessment & Plan (04/01/2023 7:44 PM EST): Patient on gabapentin for diffuse myalgia with good benefit. Reviewed and discussed controlled substance agreement. PATTY satisfactory. Continue gabapenting 300mg BID Primary hypertension 08/03/2022 Assessment & Plan (09/20/2024 5:56 PM EDT): Pressure well-controlled on current medications, 118/76 in office today. Continue current regimen which includes metoprolol XL 25 mg daily Assessment & Plan (07/24/2024 10:33 AM EDT): Blood well-controlled in office today, 126/82. Continue current regimen which includes metoprolol XL 25 mg daily Assessment & Plan (04/12/2024 8:40 AM EST): Patient has not been checking her BP at home. Historically well-controlled on current medications Assessment & Plan (01/06/2024 3:37 PM EDT): Blood pressure within acceptable range in office today. She now only continues to take metoprolol XL 25 mg daily, previously requiring amlodipine as well. Assessment & Plan (12/16/2023 4:27 PM EDT): Blood pressure well-controlled in office today, 108/72. She now only continues to take metoprolol XL 25 mg daily, previously requiring amlodipine as well. Assessment & Plan (07/28/2023 11:44 AM EDT): Blood pressure well-controlled in office today, 106/70. Patient's only blood pressure medication is amlodipine 10 mg daily. She notes that she had some bouts of low blood pressure while in the hospital. Requested patient monitor blood pressure 2-3 times weekly. If dizziness continues and blood pressure staying below 110/60 most of the time will decrease amlodipine to 5 mg daily. Advised patient I will give her a phone call next week to go over blood pressure readings and further direction. Assessment & Plan (04/01/2023 7:40 PM EST): Patient diastolic pressure elevated in office today, 128/88. She does not monitor at home. Patient asked to keep home BP log for review on next visit. Currently utilizing amlodipine 5mg daily. Assessment & Plan (09/03/2022 12:38 PM EDT): Patient blood pressure remains well controlled on current medications 1. Amlodipine 10 mg once daily Assessment & Plan (08/03/2022 9:52 AM EDT): Patient with borderline blood pressure in office today, 140/92. Currently utilizing amlodipine 10 mg once daily. He does not monitor her blood pressure at home. We discussed the need for regular blood pressure monitoring 3 to 4 days weekly for review on her next visit. Optimal goal blood pressure less than 130/80 most of the time. Vitamin D deficiency 07/30/2022 Assessment & Plan (08/03/2022 8:52 AM EDT): Current utilizing ergocalciferol 50,000 units once weekly Hyperlipidemia 07/30/2022 Assessment & Plan (09/20/2024 5:59 PM EDT): Patient current utilizing pravastatin 20 mg nightly Assessment & Plan (07/24/2024 10:24 AM EDT): Patient currently lysing pravastatin 20 Assessment & Plan (04/12/2024 8:38 AM EST): Currently utilizing pravastatin 20 mg daily Assessment & Plan (01/06/2024 3:36 PM EDT): Currently utilizing pravastatin 20 mg daily. We will be rechecking her lipid panel today. Assessment & Plan (12/16/2023 4:25 PM EDT): Currently utilizes pravastatin 20 mg daily. Assessment & Plan (07/28/2023 11:42 AM EDT): Currently utilizes pravastatin 20mg daily. Assessment & Plan (04/01/2023 7:37 PM EST): Currently utilizes pravastatin 20mg daily. Assessment & Plan (08/03/2022 8:57 AM EDT): Currently utilizing pravastatin 20 mg once daily. Last lipid panel available is from March 2020 at which time total cholesterol was noted to be 176 and triglycerides 161 Acquired hypothyroidism 07/30/2022 Assessment & Plan (07/24/2024 10:31 AM EDT): Patient currently utilizing levothyroxine 75 mcg daily. No endocrine type symptoms to indicate abnormality. Assessment & Plan (04/12/2024 8:38 AM EST): Patient currently utilizing levothyroxine 75 mcg daily. No endocrine type symptoms to indicate abnormality. Assessment & Plan (01/06/2024 3:34 PM EDT): Patient currently utilizing levothyroxine 75 mcg daily. No endocrine type symptoms to indicate abnormality. Rechecking thyroid levels today Assessment & Plan (12/16/2023 4:23 PM EDT): Patient currently utilizes levothyroxine 75 mcg daily. Assessment & Plan (04/01/2023 7:35 PM EST): Patient currently utilizes levothyroxine 75mcg daily Assessment & Plan (08/03/2022 8:58 AM EDT): Utilizing levothyroxine 75 mcg once daily. Last check of TSH 4 months ago, March 2019. At which time TSH noted to be 3.24 Anxiety and depression 07/30/2022 Assessment & Plan (09/20/2024 6:01 PM EDT): Patient any pattern of anxiety depression, having been followed by behavioral health in the past. Unfortunately, she had to discontinue behavioral health follow-up due to insurance lack of coverage. During her visit 4 months ago patient felt her depression was worsening even further due to related poor health, decreased mobility and feeling somewhat confined to her home. At that time we made decision to wean her Depakote. Patient was continued on bupropion XL 300 mg daily, buspirone 15 mg daily. She was given samples of Vraylar 1.5 mg daily. During initial follow-up patient felt significant improvement with the addition of Vraylar prompting continuance of 1.5 mg daily dosing. Patient states that over the last 1 to 2 weeks she is having increased anxiety particularly with driving. She states that she has to drive her son to work almost daily. - Increase Vraylar to 3 mg daily -Continue bupropion XL 300 mg daily -Continue BuSpar 15 mg 3 times daily Assessment & Plan (08/12/2024 8:18 AM EDT): Patient has longstanding pattern of anxiety and depression, having been followed by behavioral health in the past. Unfortunately she had to discontinue behavioral health follow-up due to insurance lack of coverage. During her last visit patient felt that her depression was worsening even further due to related poor health, decreased mobility and feeling somewhat confined to her home. Decision was made to wean her Depakote with possibly transitioning to lamotrigine once Depakote discontinued. She has continued her bupropion XL 300 mg daily, buspirone 15 mg daily and Seroquel 100 mg nightly. Patient was also given samples of Vraylar 1.5 mg daily. Today she tells me she feels significant improvement with these changes and would like to pursue Vraylar permanently. - Continue bupropion XL 300 mg daily -Send prescription for Vraylar 3 mg daily -Continue nightly Seroquel at 100 mg for sleep -Continue BuSpar 15 mg 3 times daily Assessment & Plan (07/24/2024 10:31 AM EDT): Longstanding pattern of anxiety and depression, having been followed by behavioral health past. Unfortunately she had to discontinue behavioral health follow-up due to insurance he has been on regimen of bupropion, and Seroquel for quite some time. During her last visit she felt as though there was some worsening issues with depression. As a result 3 months ago we increased her bupropion XL from 150 to 300 mg daily while continuing buspirone 15 mg 3 times daily, Depakote 125 mg twice daily and nightly milligrams. Today patient endorses that she continues to feel very depressed and down, no SI or HI. Patient relates that a lot of her depression is related to her poor health, decreased mobility and feeling somewhat confined to the home. - After some discussion today she would possibly benefit from use of lamotrigine. Will start weaning of Depakote with ultimate go of starting lamotrigine once Depakote discontinued. Patient will continue her bupropion XL 300 mg daily, buspirone 15 mg daily and Seroquel 100 mg nightly. She is being given samples of Vraylar 1.5 mg daily for now. Will follow-up in 4 weeks Assessment & Plan (04/12/2024 8:38 AM EST): Patient has longstanding pattern of anxiety and depression, followed by behavioral health. Unfortunately she recently had to discontinue behavioral health follow- up due to insurance no longer covering. She has been on regimen of bupropion, buspirone, Depakote and Seroquel for quite some time. Today she feels like there is some worsening issues with depression, she does feel some of it may be contributory to the weather. She is not opposed to increasing some medication to see if it provides any benefit. -Increase bupropion XL from 150 to 300 mg daily -Continue buspirone 15 mg 3 times daily -Continue Depakote 125 mg twice daily -Continue nightly 100 mg Seroquel Assessment & Plan (01/06/2024 3:34 PM EDT): Patient previously under care of mental health, kristen stover APRN. She has continued medications as ordered but will need to establish with new provider as Ms. Stover has relocated. She feels her mood is currently stable. -Continue bupropion XL 150 mg daily -Continue buspirone 15 mg 3 times daily -Continue Depakote 125 mg twice daily -Continue Seroquel 100 mg nightly Assessment & Plan (12/16/2023 4:24 PM EDT): Patient previously under care of mental health, kristen stover APRN. She has continued medications as ordered but will need to establish with new provider as Ms. Stover has relocated. She feels her mood is currently stable. -Continue bupropion XL 150 mg daily -Continue buspirone 15 mg 3 times daily -Continue Depakote 125 mg twice daily -Continue Seroquel 100 mg nightly Assessment & Plan (07/28/2023 11:42 AM EDT): Patient previously under care of mental health, kristen stover APRN. She has continued medications as ordered but will need to establish with new provider as Ms. Stover has relocated. She feels her mood is currently stable. Assessment & Plan (04/01/2023 7:37 PM EST): .Patient previously under care of mental health, kristen stover APRN. She has continued medications as ordered but will need to establish with new provider as Ms. Stover has relocated. She feels her mood is currently stable. Assessment & Plan (09/03/2022 12:40 PM EDT): Patient receives mental health care by Kristen Stover APRN. She attends therapy sessions as well all via Zoom. Her medications were recently changed after genotype testing with Ms. Stover. Current medications include Future 150 mg once daily Depakote 125 mg once daily Doxepin 25 mg at bedtime Lexapro 10 mg once daily Assessment & Plan (07/30/2022 11:43 AM EDT): Followed by Kristen Stover APRN. Zoom meetings. Recent medication changes. Underwent genotype testing with kristen stover Mild intermittent asthma without complication Assessment & Plan (08/03/2022 8:56 AM EDT): Patient presented to prior PCP on multiple Occasions over the last year with complaints of shortness of breath, weakness and fatigue. Extensive cardiac work- up without abnormal findings. Pulmonary work-up revealing some mild asthma. No benefit found with Flovent. Morbid (severe) obesity due to excess calories 0 07/30/2022 Assessment & Plan (09/20/2024 5:57 PM EDT): Patient's (Body mass index is 54.68 kg/m .) indicates that they are morbidly/severely obese (BMI > 40 or > 35 with obesity - related health condition) with health conditions that include hypertension, diabetes mellitus, dyslipidemias, GERD, and osteoarthritis . Weight is worsening. BMI is above average; BMI management plan is completed. We discussed portion control and increasing exercise. Assessment & Plan (07/24/2024 10:24 AM EDT): Patient's (Body mass index is 54.68 kg/m .) indicates that they are morbidly/severely obese (BMI > 40 or > 35 with obesity - related health condition) with health conditions that include hypertension, dyslipidemias, and osteoarthritis . Weight is worsening. BMI is above average; BMI management plan is completed. We discussed portion control and increasing exercise. Assessment & Plan (04/12/2024 8:39 AM EST): Patient's (There is no height or weight on file to calculate BMI.) indicates that they are obese (BMI >30) with health conditions that include hypertension, dyslipidemias, and osteoarthritis . Weight is unchanged. BMI is above average; BMI management plan is completed. We discussed portion control and increasing exercise. Assessment & Plan (01/06/2024 3:36 PM EDT): Patient's (Body mass index is 53.32 kg/m .) indicates that they are morbidly/severely obese (BMI > 40 or > 35 with obesity - related health condition) with health conditions that include hypertension, dyslipidemias, and osteoarthritis . Weight is worsening. BMI is above average; BMI management plan is completed. We discussed portion control and increasing exercise. She continues to utilize gabapentin for diffuse myalgia with good benefit. She has had thorough lab work and diagnostics without any particular etiology for her myalgias. I made referral for physical therapy which she failed to pursue due to deconditioning. Patient UDS and controlled substance agreement updated in office today. Will continue current dose of gabapentin 300 mg twice daily Assessment & Plan (12/16/2023 4:26 PM EDT): Patient's (Body mass index is 52.46 kg/m .) indicates that they are morbidly/severely obese (BMI > 40 or > 35 with obesity - related health condition) with health conditions that include hypertension, dyslipidemias, and osteoarthritis . Weight is worsening. BMI is above average; BMI management plan is completed. We discussed portion control and increasing exercise. Patient have been approved for semaglutide to pursue weight management. She has not managed to lose any weight and states that it has not been beneficial in her opinion. She is inquiring about other medications or avenues that may help her. We discussed that the GLP-1 medications seem to be working the best, phentermine would only worsen anxiety and possibly increased blood pressure. We discussed bariatric referral which she is not interested in at this time. Assessment & Plan (07/28/2023 11:43 AM EDT): Patient's (Body mass index is 50.97 kg/m .) indicates that they are morbidly/severely obese (BMI > 40 or > 35 with obesity - related health condition) with health conditions that include hypertension and dyslipidemias . Weight is unchanged. BMI is above average; BMI management plan is completed. We discussed portion control and increasing exercise. Assessment & Plan (04/01/2023 7:39 PM EST): When patient last seen many months ago she had utilized semaglutide with good benefit. With lapse in insurance obviously she has not been able to obtain semaglutdie, however has still lost 20lbs with decreased caloric intake. Encouraged her to keep up the good work. . Assessment & Plan (09/03/2022 12:44 PM EDT): Initiated on semaglutide 0.25 mg 4 weeks ago. Reports good benefit in regards to appetite suppression and motivation to lose weight. Discouraged today as the scales have not shown any pounds loss though she reports her close seem to be fitting more loosely. No adverse GI side effects to report including nausea, diarrhea or vomiting. Will increase semaglutide to 0.5 mg weekly and continue to monitor Assessment & Plan (08/03/2022 11:18 AM EDT): Patient's (Body mass index is 54.49 kg/m .) indicates that they are morbidly/severely obese (BMI > 40 or > 35 with obesity - related health condition) with health conditions that include hypertension . Weight is unchanged. BMI is above average; BMI management plan is completed. We discussed portion control and increasing exercise. Patient notes significant weight gain over the last two years since her mother . She has considered bariatric surgery in the past but has not pursued further information through [facility]. She is interested in pharmacologic assistance with appetite suppression and weight loss. Discussed likely not a good candidate for phentermine due to higher blood pressures as well as anxiety. She is interested in GLP-1 RA medication in the form of semaglutide. We discussed diet modifications including limiting caloric intake to roughly 14 to 1500 nasima daily. He is focusing on lean protein and vegetable intake, drastically reducing carbohydrate and refined sugar intake. Also discussed implementing light exercise 3 to 4 days weekly as tolerated. -Prescription for semaglutide 0.25 mg once weekly sent to pharmacy for approval -Discussed calorie and carbohydrate tracking through [facility] -Return to clinic in 4 weeks to assess progress Dyspnea 07/30/2022 Assessment & Plan (08/03/2022 11:19 AM EDT): Complaints of shortness of breath with little to no movement over the last 2 years. In review of her former PCP notes she has undergone thorough evaluation, normal cardiac work-up as well as thyroid. Underwent thorough pulmonary evaluation with mild asthma diagnosed. He felt no improvement with initiation of Flovent. We discussed possibility that dyspnea was simply related to her weight and perhaps anxiety. Comprehensive labs drawn 3 months ago all within acceptable limits. Oxygen saturation excellent on room air. Stage 3a chronic kidney disease 07/30/2022 Assessment & Plan (09/20/2024 6:05 PM EDT): Patient is followed regularly by nephrologyDr. Holland. Baseline creatinine noted to be 1.1 range with GFR of 56. Assessment & Plan (07/24/2024 10:33 AM EDT): Patient is followed regularly by nephDr. Amalia hayden. Baseline creatinine noted to be 1.1 range with GFR of 56. Assessment & Plan (04/12/2024 8:40 AM EST): Patient is followed regularly by nephDr. Amalia hayden. Baseline creatinine noted to be 1.1 range with GFR of 56. Assessment & Plan (01/06/2024 3:38 PM EDT): Patient is followed regularly by nephrology, Dr. Holland. Baseline creatinine noted to be 1.1 range with GFR of 56. We are rechecking metabolic panel today. Her neck scheduled follow-up with Dr. Holland is at the end of next month. Assessment & Plan (12/16/2023 4:27 PM EDT): Patient followed by nephrology, Dr. Holland. Baseline creatinine 1.1 range with GFR of 56 Assessment & Plan (07/28/2023 11:44 AM EDT): Followed by nephrology, Dr. Turner. Last known baseline creatinine 1.1, GFR 56. Assessment & Plan (04/01/2023 7:40 PM EST): Followed by nephrology, Dr. Turner. Last known baseline creatinine 1.1, GFR 56. Assessment & Plan (08/03/2022 8:54 AM EDT): Most recent metabolic panel obtained 4 months ago showing creatinine of 1.1 with GFR 56 putting her in the CKD stage III a category. She is followed by nephrology, Dr. Turner Resolved Problems Problem Noted Date Diagnosed Date Resolved Date Anxiety 07/30/2022 09/03/2022 Assessment & Plan (08/03/2022 11:29 AM EDT): Followed by mental health, Kristen Stover APRN. Her anxiety is so significant she has difficulty showering, feeling like the lovelace are closing in on her. Significant anxiety about leaving her home alone. She no longer drives. Mood medications as listed above Encounters Date Type Department Care Team Description 12/20/2024 [facility] [address] [place] [address] [place], [place] [phone] Liyah Rios APRN 12/15/2024 [facility] [address] [place] [address] [place] [id number] Liyah Rios APRN Chronic pain syndrome 12/09/2024 [facility] [address] [place] [address] [place] [address] Liyah Rios, FISHING INSTRUCTOR 11/28/2024 Results Follow-Up [address] [place] [address] Liyah Rios, FISHING INSTRUCTOR 11/23/2024 11:45 AM EDT Clinical Support [address] [place] [address] Recurrent UTI (Primary Dx) 11/23/2024 Travel 11/21/[address] [place] [address] Liyah Rios, FISHING INSTRUCTOR UTI FOLLOW-UP 11/15/[address] [place] [address] Liyah Rios, FISHING INSTRUCTOR Chronic pain syndrome 11/13/2024 Telephone [facility] [address] [place] [address] Liyha Rios, FISHING INSTRUCTOR SAMPLES 11/08/[address] [place] [address] Liyah Rios, FISHING INSTRUCTOR 10/17/2024 Telephone [facility] [address] [place] [address] Liyah Rios, FISHING INSTRUCTOR LIYAH RIOS - PATIENT UPDATE 10/17/2024 Telephone [facility] [address] [place] [address] [place] [address] Liyah Rios, FISHING INSTRUCTOR ED - Called Back For Treatment Only 10/16/2024 Refill [facility] [address] [place] [address] Liyah Rios, FISHING INSTRUCTOR Chronic pain syndrome 10/10/2024 Telephone [facility] [address] [place] [address] Liyah Rios, FISHING INSTRUCTOR MEDICATION CONCERNS 10/10/2024 Refill [facility] [address] [place] [address] [place] [phone] Liyah Rios, FISHING INSTRUCTOR 10/06/2024 Refill [facility] [address] [place] [address] [place] [address] Liyah Rios, FISHING INSTRUCTOR from Last 3 Months Family History Medical History Relation Name Comments Diabetes Father Hypertension Father No Known Problems Mother Relation Name Status Comments Father Alive Mother Social History Tobacco Use Types Packs/Day Years Used Date Smoking Tobacco: Never Smokeless Tobacco: Never Tobacco Cessation:Counseling Given: Not Answered Alcohol Use Standard Drinks/Week Comments Never 0 [...] Orientation Straight 04/04/2024 7: 19 AM EST Last Filed Vital Signs Vital Sign Reading Time Taken Comments Blood Pressure 118/76 09/14/2024 2:36 PM EDT Pulse 80 09/14/2024 2:36 PM EDT Temperature 36.3 C (97.3 F) 09/14/2024 2:36 PM EDT Respiratory Rate 18 09/14/2024 2:36 PM EDT Oxygen Saturation 97% 09/14/2024 2:36 PM EDT Inhaled Oxygen Concentration - - Weight 127 kg (280 lb) 09/14/2024 2:36 PM EDT Height 152.4 cm (5') 09/14/2024 2:36 PM EDT Body Mass Index 54.68 09/14/2024 2:36 PM EDT Plan of Treatment Upcoming Encounters Date Type Department Care Team (Late st Contact Info) Description 01/18/2025 2:45 PM EDT Office Visit [facility] [address] [place] [address] Liyah Rios, KRISTEN [address] [place] [address] Health Maintenance Due Date Last Done Comments Annual Gynecologic Pelvic and Breast Exam 1960 DIABETIC EYE EXAM 1970 Pneumococcal Vaccine 50+ (1 of 2 - PCV) 1979 COLOGUARD 2005 COLON CANCER SCREENING 5 YEAR SIGMOIDOSCOPY [address] COLONOGRAPHY 2005 FECAL OCCULT BLOOD TEST 2005 FIT Testing (1 year) 2005 ZOSTER VACCINE (1 of 2) 2010 INFLUENZA VACCINE 10/26/2024 COLORECTAL CANCER SCREENING 12/25/2024 Postponed from 2005 (Patient Refused) ANNUAL WELLNESS VISIT 01/05/2025 01/06/2024 DIABETIC FOOT EXAM 01/05/2025 01/06/2024, 01/06/2024 LIPID PANEL 01/05/2025 01/06/2024, 12/17/2020 TDAP/TD VACCINES (1 - Tdap) 01/05/2025 Postponed from 1979 (Patient Refused) PAP SMEAR 01/08/2025 Postponed from 1981 (Patient Refused) HEMOGLOBIN A1C 03/16/2025 09/14/2024, 04/2 07/2024, 12/16/2023, Additional history exists URINE MICROALBUMIN-CREATININE RATIO (uACR) 09/14/2025 09/14/2024 HEPATITIS C SCREENING Completed 01/06/2024 MAMMOGRAM Discontinued Procedures Procedure Name Priority Date/Time Associated Diagnosis Comments URINE CULTURE Routine 11/23/2024 11:47 AM EDT Recurrent UTI SCANNED - LABS 11/09/2024 SCANNED - LABS 11/09/2024 POC ALBUMIN/CREATININE RATIO Routine 09/14/2024 2:59 PM EDT Prediabetes HEMOGLOBIN A1C Routine 09/14/2024 2:38 PM EDT Prediabetes LIPID PANEL Routine 01/06/2024 10:16 AM EDT Mixed hyperlipidemia HEPATITIS C ANTIBODY Routine 01/06/2024 10:16 AM EDT Need for hepatitis C screening test from Last 3 Months or Most Recently Relevant to Health Maintenance Results * Urine Culture - Urine, Urine, [...] 11:47 AM EDT 11/23/2024 Comment:Urine Release to [facility] Narrative [facility] - 11/25/2024 6:37 AM EDT Performed at: 01 - [address] [id number] Construction Specialist: Vic Freed PhD, Phone: [phone] Liyah Rios APRN MICROBIOLOGY - GENERAL ORDE LINETTE Final Result [facility] [address] [id number], [facility] [address] [place] [address], * LABS SCANNED (11/09/2024) Only the most recent of2 resultswithin the time period is included. Liyah Rios APRN LAB BLOOD ORDERABLES Final Result * POC Albumin/Creatinine Ratio Urine (09/14/2024 2:59 PM EDT) Pathologist [facility] POC ALBUMIN, URINE 10 mg/L POC CREATININE, URINE 100 mg/dL POC Urine Albumin Creatinine Ratio <30 <30 Lot Number [id number] Expiration Date Urine 09/14/2024 2:59 PM EDT Liyahcharles Rios APRN POINT OF CARE TEST ORDERABL ES Final Result * (ABNORMAL) Hemoglobin A1c (09/14/2024 2:38 PM EDT) Pathologist [facility] Hemoglobin A1C 6.0(H) 4.8 - 5.6 % [facility] Comment: Prediabetes: 5.7 - 6.4 Diabetes: >6.4 Glycemic control for adults with diabetes: <7.0 Blood Structure of left upper limb / Unknown 09/14/2024 2:38 PM EDT 09/14/2024 Comment:Blood Release to [facility] Narrative [facility] (AMBUL[facility]) - 09/15/2024 8:07 AM EDT Performed at: - [address] [id number] Construction Specialist: Vic Freed PhD, Phone: [phone] Liyah Rios APRN LAB BLOOD ORDERABLES Final Result [facility] [address] [place] [address], [place] [phone] [facility] [address] [place] [address], [place] [phone] * Hepatitis C Antibody (01/06/2024 10:16 AM EDT) [facility] Hep C Virus Ab Non Reactive Non Reactive [facility] Comment: HCV antibody alone does not differentiate between previously resolved infection and active infection. Equivocal and Reactive HCV antibody results should be followed up with an HCV RNA test to support the diagnosis of active HCV infection. Blood Structure of left hand / Unknown 01/06/2024 10:16 AM EDT 01/06/2024 Comment:Blood Release to [facility] - 01/07/2024 8:10 AM EDT Performed at: 01 - [facility] [id number] Construction Specialist: Vic Freed PhD, Phone: [phone] Liyah Rios APRN LAB BLOOD ORDERABLES Final Result [facility] (AMBULATORY) [address] [place] [address], [place] [phone] [facility] [address] [place] [address], [place] [phone] * (ABNORMAL) Lipid Panel (01/06/2024 10:16 AM EDT) Total Cholesterol 201(H) 100 - 199 mg/dL [facility] Triglycerides 145 0 - 149 mg/dL [facility] HDL Cholesterol 64 >39 mg/dL [facility] VLDL Cholesterol Nasima 25 5 - 40 mg/dL [facility] LDL Chol Calc (NIH) 112(H) 0 - 99 mg/dL [facility] Blood Structure of left hand / Unknown 01/06/2024 10:16 AM EDT 01/06/2024 Comment:Blood Release to [facility] ([facility]) - 01/07/2024 8:10 AM EDT Performed at: 01 - [facility] [address] [id number] Construction Specialist: Vic Freed PhD, Phone: [phone] Liyah Rios APRN LAB BLOOD ORDERABLES Final Result [facility] (AMBULATORY) [address] [place] [address], [place] [phone] [facility] [address] [place] [address], [place] [phone] from Last 3 Months or Most Recently Relevant to Health Maintenance Insurance [facility] MEDICARE ADVANTAGE HMO Advance Directives * CPR (Attempt to Resuscitate) (Latest Code Status on File) Date Activated Date Inactivated Comments 08/19/2022 11:42 PM No physician signature needed for this code status. Abdi as Signed. Care Teams Forcer Maker Relationship Specialty Start Date End Date Liyah Rios APRN [address] [place] [id number] PCP - General Family Medicine 07/30/22
--- OUTSIDE RECORDS SUMMARY | 2024-12-28 15:03 | XMS_ITS | Encounter Summary ---
Author Organization Healthcare Address [address] [place] [address] Care Team Providers Care Recreation Superintendent Name Role Phone Edith Correia MD Primary Care Provider [phone] Edith Correia MD Primary Care Provider [phone] Reason for Visit * Reason Comments Med Refill Encounter Details Date Type Department Care Team (Late st Contact Info) Description 04/26/2022 Refill [facility] [address] [place] [address] Edith Correia MD [address] [place] [address] Social History Tobacco Use Types [...] suspected to have Coronavirus/COVID-19? No / Unsure 04/02/2022 3:57 PM EST documented as of this encounter Plan of Treatment Not on file documented as of this encounter Visit Diagnoses Not on filedocumented in this encounter Additional Health Concerns Assessment Noted Time PHQ-9 Depression Total Score: 12 023 4:05 PM EST A fall risk assessment has been complete d for the patient 11/02/2021 4:49 PM EDT documented as of this encounter Care Teams Recreation Superintendent Relationship Specialty Start Date End Date Edith Coreria MD [address] [place] [address] PCP - General 08/08/20 10/04/22 Edith Correia MD [address] [place] [address] PCP - General Family Medicine 10/05/22 12/14/22 documented as of this encounter
--- OUTSIDE RECORDS SUMMARY | 2024-12-28 15:03 | XMS_ITS | Encounter Summary ---
Author Organization Healthcare Address [address] [place] [address] Care Team Providers Care Arc Welder Name Role Phone Edith Correia MD Primary Care Provider [phone] Edith Correia MD Primary Care Provider [phone] Encounter Details Date Type Department Care Team (Late st Contact Info) Description 05/08/2021 Outside Procedure External Location [address] [place] [address] Edith Correia MD [address] [place] [address] Social History Tobacco Use Types Packs/Day [...] Exposure Response Date Recorded In the last month, have you been in contact with someone who was confirmed or suspected to have Coronavirus / COVID-19? No / Unsure 04/22/2021 3:39 PM EST documented as of this encounter Plan of Treatment Not on file documented as of this encounter Procedures Procedure Name Priority Date/Time Associated Diagnosis Comments ECHO, ADULT TRANSTHORACIC COMPLETE W/ COLOR AND DOPPLER 05/08/2021 8:14 AM EST documented in this encounter Results * Echo, Adult Transthoracic Complete w/ Color and Doppler (05/08/2021 8:14 AM EST) Anatomical Region Laterality Modality Ultrasound 05/08/2021 8:14 AM EST Narrative 05/08/2021 1:06 PM EST [address] [address] Name: AMIE TRUJILLO Exam Date: 05/08/2021 : 1960 Age 61 Gender: F Physician: Edith Correia Facility: [facility] Facility HSV: Outpatient Exam: ECHO W SPEC COLOR FLOW Reason for Study: dyspnea on exertion SUMMARY Normal LV size with normal function. The ejection fraction is 60-65%. Normal diastolic function. INTERPRETATION DETAIL Fair quality study. Left ventricle: The left ventricle is normal in size with normal systolic function. The ejection fraction is 60-65%. There is top normal LV wall thickness. The left ventricular wall motion is normal. Mitral filling indicates Normal diastolic function. Left atrium: The left atrium is normal. LA volume: 35.8mL, LA volume index: 14.9mL/mA . Right ventricle: The right ventricle is normal in size with normal function. Right atrium: The right atrium is normal. Mitral valve: The mitral valve is normal. There is no mitral stenosis. There is no mitral regurgitation. Aortic valve: The aortic valve is normal and trileaflet. There is no aortic stenosis. AV peak oulrfmdu=718qn/sec. There is no aortic regurgitation. Tricuspid valve: The tricuspid valve is normal. There is no tricuspid regurgitation, so PA pressure cannot be estimated. Pulmonic valve: The pulmonic valve is normal. Pericardium: The pericardium is normal. Interatrial septum: The interatrial septum is normal. Aorta: The aortic root is normal. Aortic dimension - Ao M-mode= 2.90cm. Vena Cava: The inferior vena cava is normal. MEASUREMENTS Left Ventricle IVSd: 1.14cm (0.6-1.1cm) PWd: 1.12cm (0.6-1.1cm) Mass Nadya: 167g LVMI: 70g/mA (>50-95g/m) LVIDd: 4.26cm (3.7-5.6 cm) LVIDdI: 1.78cm/m2 LVIDs: 2.57cm (1.8-4.2 cm) LVIDsI: 1.07cm/m2 RWT: 0.53 ( E to A: 0.73 (0.6-2) E-e prime med: 6.60 E-e prime lat: 6.00 Decel: 129.00ms (168-232ms) Right Ventricle Mid RV Neema: 3.1cm (2.7-3.3cm) Max Valve Velocities AV peak colton: 147cm/sec LVOT: 127.00cm/sec Atria LA AP: 3.5cm Legally authenticated by SALOMON Ying 2021-05-08 12:54:59 LA vol: 35.8mL JONEL: 14.9mL/mA (16-28ml/m2) Anthony Faustin MD Dictated By: ANTHONY FAUSTIN Transcribed By: Transcribed On: 05/08/2021 12:54 PM Electronically signed by: ANTHONY FAUSTIN 05/08/2021 Thank you for referring AMIE TRUJILLO to [facility]. Legally authenticated by SALOMON Ying 2021-05-08 12:54:59 Procedure Note Provider, [facility] - 05/08/2021 [place] [address] Name: AMIE TRUJILLO Exam Date: 05/08/2021 : 1960 Age 61 Gender: F Physician: Edith Correia Facility: [facility] Facility HSV: Outpatient Exam: ECHO W SPEC COLOR FLOW Reason for Study: dyspnea on exertion SUMMARY Normal LV size with normal function. The ejection fraction is 60-65%. Normal diastolic function. INTERPRETATION DETAIL Fair quality study. Left ventricle: The left ventricle is normal in size with normal systolic function. The ejection fraction is 60-65%. There is top normal LV wall thickness. The left ventricular wall motion is normal. Mitral filling indicates Normal diastolic function. Left atrium: The left atrium is normal. LA volume: 35.8mL, LA volume index: 14.9mL/mA . Right ventricle: The right ventricle is normal in size with normal function. Right atrium: The right atrium is normal. Mitral valve: The mitral valve is normal. There is no mitral stenosis. There is no mitral regurgitation. Aortic valve: The aortic valve is normal and trileaflet. There is no aortic stenosis. AV peak xdmlsmop=291jk/sec. There is no aortic regurgitation. Tricuspid valve: The tricuspid valve is normal. There is no tricuspid regurgitation, so PA pressure cannot be estimated. Pulmonic valve: The pulmonic valve is normal. Pericardium: The pericardium is normal. Interatrial septum: The interatrial septum is normal. Aorta: The aortic root is normal. Aortic dimension - Ao M-mode= 2.90cm. Vena Cava: The inferior vena cava is normal. MEASUREMENTS Left Ventricle IVSd: 1.14cm (0.6-1.1cm) PWd: 1.12cm (0.6-1.1cm) Mass Nadya: 167g LVMI: 70g/mA (>50-95g/m) LVIDd: 4.26cm (3.7-5.6 cm) LVIDdI: 1.78cm/m2 LVIDs: 2.57cm (1.8-4.2 cm) LVIDsI: 1.07cm/m2 RWT: 0.53 ( E to A: 0.73 (0.6-2) E-e prime med: 6.60 E-e prime lat: 6.00 Decel: 129.00ms (168-232ms) Right Ventricle Mid RV Neema: 3.1cm (2.7-3.3cm) Max Valve Velocities AV peak colton: 147cm/sec LVOT: 127.00cm/sec Atria LA AP: 3.5cm Legally authenticated by SALOMON Ying 2021-05-08 12:54:59 LA vol: 35.8mL JONEL: 14.9mL/mA (16-28ml/m2) Anthony Faustin MD Dictated By: ANTHONY FAUSTIN Transcribed By: Transcribed On: 05/08/2021 12:54 PM Electronically signed by: ANTHONY FAUSTIN 05/08/2021 Thank you for referring AMIE TRUJILLO to [facility]. Legally authenticated by SALOMON Ying 2021-05-08 12:54:59 us Edith Correia MD CV ECHO PROCEDURES Final Resu lt documented in this encounter Visit Diagnoses Not on filedocumented in this encounter Additional Health Concerns Assessment Noted Time PHQ-9 Depression Total Score: 19 021 8:19 AM EDT documented as of this encounter Care Teams Arc Welder Relationship Specialty Start Date End Date [place] [address] [place] [address] PCP - General 08/08/20 10/04/22 [place] [address] [place] [address] PCP - General Family Medicine 10/05/22 12/14/22 documented as of this encounter
--- OUTSIDE RECORDS SUMMARY | 2024-12-28 15:04 | XMS_ITS | Clinical Summary ---
Author Organization Healthcare Address [address] [place] [address] Care Team Providers Care Floor Assembler Name Role Phone Unavailable Primary Care Provider Unavailabl e Allergies Active Allergy Reactions Criticality Noted Date Comments Penicillins Unknown - Patient st ates they do not know rxn details Low 06/21/2014 Medications ergocalciferol 1.25 MG (68657 UT) capsule every 14 (fourteen) days. 1 Active DULoxetine (Cymbalta) [address] capsule TAKE 1 ORAL CAPSULE ONCE A DAY WITH THE 60 MG CAPSULE. 1 Active busPIRone (Buspar) 15 MG tablet Take by mouth 2 (two) times a day. Active DULoxetine (Cymbalta) [address] capsule TAKE 1 CAPSULE BY MOUTH EVERY DAY 30 capsule 10 1 Active doxepin (SINEquan) 25 MG capsule 25 mg every night. 2 Active fluticasone (Flovent) 220 MCG/ACT inhalerIndication s:Dyspnea on exertion Inhale 2 puffs 2 (two) times a day. Rinse mouth with water after use to reduce aftertaste and incidence of candidiasis. Do not swallow. 12 g 5 2 Active albuterol (ProAir HFA) 108 (90 Base) MCG/ACT inhalerIndication s:Mild intermittent asthma, unspecified whether complicated Inhale 2 puffs every 4 (four) hours if needed for wheezing or shortness of breath. 8.5 g 5 3 Active amLODIPine (Norvasc) 10 MG tabletIndications :Primary hypertension Take 1 tablet (10 mg total) by mouth 1 (one) time each day. 90 tablet 3 3 Active gabapentin (Neurontin) 300 MG capsule Take 1 capsule (300 mg total) by mouth 2 (two) times a day. 180 capsule 3 Active pravastatin (Pravachol) 20 MG tablet Take 1 tablet (20 mg total) by mouth 1 (one) time each day. 90 tablet 2 3 Active famotidine (Pepcid) 40 MG tabletIndications :Heart burn TAKE 1 TABLET BY MOUTH 1 TIME EACH DAY. 90 tablet 1 3 Active levothyroxine (Synthroid, Levoxyl) 75 MCG tablet TAKE 1 TABLET (75 MCG TOTAL) BY MOUTH ONE TIME EACH DAY. 90 tablet 1 3 Active divalproex (Depakote) [address] tablet TAKE 1 TABLET BY MOUTH 2 TIMES A DAY. DO NOT CRUSH, CHEW, OR SPLIT. 180 tablet 4 Active Active Problems Problem Noted Date Diagnosed Date Dyspnea on exertion 04/22/2021 Prediabetes 12/18/2020 Chronic kidney disease, stage 3 03/11/2020 Arthralgia of multiple joints 12/31/2019 Edema 12/31/2019 Depression, major, recurrent, moderate 0 Morbid obesity, unspecified obesity type 017 Generalized anxiety disorder 06/22/2014 HTN (hypertension) 06/22/2014 Hyperlipidemia 06/22/2014 Hypothyroidism 06/22/2014 Family History Medical History Relation Name Comments Colon cancer Father Relation Name Status Comments Father Social History Tobacco Use Types Packs/Day Years Used Date Smoking Tobacco: Never Smokeless Tobacco: Never Tobacco Cessation:Counseling Given: Not Answered PHQ-2 Answer Date Recorded Patient Health Questionnaire-2 Score 4 04/02/2022 PHQ-9 Answer Date Recorded Patient Health Questionnaire-9 Score 12 04/02/2022 PHQ-2A Answer Date Recorded Patient Health Questionnaire-2 Score 4 04/02/2022 Comments Unknown Sex and Gender Information Value Date Recorded Sex Assigned at Not on file Legal Sex Female 8:20 PM EDT Gender Identity Not on file Sexual Orientation Not on file Last Filed Vital Signs Vital Sign Reading Time Taken Comments Blood Pressure 108/86 04/02/2022 4:04 PM EST Pulse 104 04/02/2022 4:04 PM EST Temperature 36.9 C (98.5 F) 01/22/2022 9:57 AM EDT Respiratory Rate 14 05/31/2019 11:14 AM EST Oxygen Saturation 97% 04/02/2022 4:04 PM EST Inhaled Oxygen Concentration - - Weight 130 kg (286 lb 6 oz) 05/21/2022 1:[address] Height 154.9 cm (5' 1 ) 04/02/2022 4:04 PM EST Body Mass Index 54.11 04/02/2022 4:04 PM EST Plan of Treatment Health Maintenance Due Date Last Done Comments [facility]-HIV Screening 1960 [facility]-Hepatitis C Screening 1960 [facility]-Medicare Annual Wellness (AWV) 1960 [facility]-Infant/Child/Adol SDOH Screenings 1960 [facility]-QGCOL-12 Vaccine (#1) 1965 [facility]- SDOH Screenings 1978 [facility]-Adult SDOH Screenings 1978 [facility]-DTaP,Tdap,and Td Vaccines (1 - Tdap) 1979 CT Colonography 2005 Colonoscopy 2005 FIT-DNA 2005 FIT 2005 FOBT 2005 Sigmoidoscopy 2005 [facility]-Colorectal Cancer Screening 2005 [facility]-Pneumococcal Vaccine: 50+ Years (1 of 1 - PCV) 2010 [facility]-Zoster Vaccines (1 of 2) 2010 [facility]-Pap Smear 12/08/2018 12/09/2015, 06/26, 03/03/1995, Additional history exists [facility]-RSV Vaccine: 60+ Years or (1 - Risk 60-74 years 1-dose series) 2020 [facility]-Cervical Cancer Screening 12/08/2020 [facility]-HPV/Cotest 12/08/2020 12/09/2015, 06/26, 03/03/1995, Additional history exists [facility]-Breast Cancer Screening 01/17/2022 01/18/2020, 1 [facility]-Depression Screening 04/02/2023 04/02/2022, 08/2022 [facility]-Diabetes: Hemoglobin A1C 04/09/2023, 04/02/2022, 07/10/2021, Additional history exists [facility]-Influenza Vaccine (#1) 2024 [facility]-Obesity Intervention Completed 023, 11/02/2021, 11/02/2021 HPV Vaccines Aged Out No longer eligi ble based on patient's age to complete this topic [facility]-HIB Vaccines Aged Out No longer e ligible based on patient's age to complete this topic [facility]-Hepatitis A Vaccines Aged Out No longer eligible based on patient's age to complete this topic [facility]-IPV Vaccines Aged Out No longer e ligible based on patient's age to complete this topic [facility]-Rotavirus Vaccines Aged Out No lo nger eligible based on patient's age to complete this topic Procedures Procedure Name Priority Date/Time Associated Diagnosis Comments HEMOGLOBIN A1C Routine 04/09/2022 10:27 AM EST MAMMOGRAPHY EXTERNAL RESULTS 01/18/2020 CYTO DATA CONVERSION Routine 12/09/2015 12:00 AM EDT from Last 3 Months or Most Recently Relevant to Health Maintenance Results * Hemoglobin A1c (04/09/2022 10:27 AM EST) External Hemoglobin A1c 5.6 3.8 - 5.6 % [facility] Comment: GLYCOSYLATED HEMOGLOBIN (A1C) EXPECTED RANGES: <6.5 NON-DIABETIC 6.5-7.5 EXCELLENT 7.5-8.5 GOOD >8.5 POOR 04/09/2022 10:2 7 AM EST 04/09/2022 10:27 AM EST us Generic [place] Provider LAB BLOOD ORDERABLES Final Result [facility] * MAMMOGRAPHY EXTERNAL RESULTS (01/18/2020) Anatomical Region Laterality Modality Mammography Narrative 01/18/2020 Ordered by an unspecified provider. us External Provider IMG BI PROCEDURES Final Result * Cytology (12/09/2015 12:00 AM EDT) 12/09/2015 12/10/2015 1:0 1 PM EDT Narrative [facility] - 12/19/2015 1:11 PM EDT [facility] MR #: [id number] [facility] AMIE TRUJILLO [place], [place] [address] 1960 (Age: 55) FW Collect Date: 12/09/2015 00:00 Receipt Date: 12/10/2015 13:01 Page 1 DEPARTMENT OF PATHOLOGY AND LABORATORY MEDICINE CYTOPATHOLOGY REPORT Email: [email or web address] ATTENDING MD/Practitioner: Amy Correia MD Service: [facility] Location: [facility] Reported: 12/19/2015 13:11 Collected: 12/09/2015 00:00 INTERPRETATION A. THIN PREP (CERVICAL/VAGINAL): NEGATIVE FOR INTRAEPITHELIAL LESION OR MALIGNANCY. SATISFACTORY FOR EVALUATION; ENDOCERVICAL/TRANSFORMATION ZONE COMPONENT ABSENT/INSUFFICIENT. Slide scanned and imaged by [employer] ThinPrep Imaging System with manual review of all selected dumas. Electronically Signed Out JOHNNY Funk (ASCP) Shad Suarez M.D. Cervical cytology is a screening test primarily for squamous cancers and precursors and has associated false negative and positive results. New technologies such as liquid based sampling may decrease but will not eliminate all false negative results. Regular screening and follow-up of unexplained clinical signs and symptoms are recommended to minimize false negative results. Please see the ASCCP website (www.asccp.org) for followup recommendations. If HPV testing was requested, correlation with the results is suggested (please call Microbiology at [phone] for results). CLINICAL INFORMATION: Menstrual History: Post-menopausal Date of Last Menstrual Period: Unknown Other Clinical Conditions: If ASCUS and > 24 years of age, HPV/DNA testing requested. SPECIMEN DESCRIPTION: A: THIN PREP (CERVICAL/VAGINAL) THIN PREP PROCESS CELLULAR ENHANCEMENT ICD: Z12.4 Encounter for screening for malignant neoplasm of cervix R87.616 Satisfactory cervical smear but lacking transformation zone F: A; RT IMAGE 42301, 93408 C\V (PO) SNOMED CODES: A; [id number] [id number] In cases where a pathologist has signed out the report, the service has been rendered in part by a resident. The signing pathologist has performed and is responsible for the reported pathologic evaluation. us Edith Correia MD LAB PATHOLOGY ORDERABLES Ruth reis Result [facility] from Last 3 Months or Most Recently Relevant to Health Maintenance Insurance [employer] MEDICARE MEDICARE [facility] MED[facility]
--- OUTSIDE RECORDS SUMMARY | 2024-12-28 15:04 | XMS_ITS | Encounter Summary ---
Author Organization Healthcare Address [address] [place] [address] Care Team Providers Care Intake Specialist Name Role Phone Edith Correia MD Primary Care Provider [phone] Edith Correia MD Primary Care Provider [phone] Encounter Details Date Type Department Care Team (Late st Contact Info) Description 01/13/2021 Outside Procedure External Location [address] [place] [address] Provider, Susan Alfaro Social History Tobacco Use Types Packs/Day Years [...] or suspected to have Coronavirus / COVID-19? Unable to assess 12/17/2020 1:37 PM EDT documented as of this encounter Plan of Treatment Not on file documented as of this encounter Procedures Procedure Name Priority Date/Time Associated Diagnosis Comments VAS US VENOUS DUPLEX LOWER EXTREMITY UNILATERAL 01/13/2021 1:20 PM EDT documented in this encounter Results * VAS US Venous Duplex Lower Extremity Unilateral (01/13/2021 1:20 PM EDT) Anatomical Region Laterality Modality Lower Extremities Ultrasound 01/13/2021 1:20 PM EDT Narrative 01/13/2021 3:04 [place] [address] Name: AMIE TRUJILLO Exam Date: 01/13/2021 : 1960 Age 60 Gender: F Physician: VERONICA KNAPP Facility: [facility] Facility HSV: Outpatient Exam: VENOUS DUPLEX US LWR LT EXT DUPLEX VENOUS SONOGRAPHY OF THE LEFT LOWER EXTREMITY HISTORY: Left leg pain and swelling FINDINGS: Multiple transverse and longitudinal scans were performed of the femoropopliteal deep venous system, with augmentation and compression maneuvers. Normal phasic flow was noted in the visualized deep venous system. No intraluminal increased echogenicity is noted to suggest thrombus. There is normal compression and augmentation of the venous structures. No abnormal venous collaterals are seen. IMPRESSION: No evidence of deep venous thrombosis of the left lower extremity. Dictated By: JOSÉ MIGUEL HUTCHISON Transcribed By: Natalio Hutchison Transcribed On: 01/13/2021 2:52 PM Electronically signed by: JOSÉ MIGUEL HUTCHISON 01/13/2021 Thank you for referring AMIE TRUJILLO to [facility]. Legally authenticated by FOSTER GUNN 2021-01-13 14:52:07 Procedure Note Provider, Susan [place] - 01/13/2021 [place] [address] Name: AMIE TRUJILLO Exam Date: 01/13/2021 : 1960 Age 60 Gender: F Physician: VERONICA KNAPP Facility: [facility] Facility HSV: Outpatient Exam: VENOUS DUPLEX US LWR LT EXT DUPLEX VENOUS SONOGRAPHY OF THE LEFT LOWER EXTREMITY HISTORY: Left leg pain and swelling FINDINGS: Multiple transverse and longitudinal scans were performed ofthe femoropopliteal deep venous system, with augmentation and compression maneuvers. Normal phasic flow was noted in the visualized deep venous system. No intraluminal increased echogenicity is noted to suggest thrombus. Thereis normal compression and augmentation of the venous structures. Noabnormal venous collaterals are seen. IMPRESSION: No evidence of deep venous thrombosis of the left lowerextremity. Dictated By: JOSÉ MIGUEL HUTCHISON Transcribed By: Natalio Hutchison Transcribed On: 01/13/2021 2:52 PM Electronically signed by: JOSÉ MIGUEL HUTCHISON 01/13/2021 Thank you for referring AMIE TRUJILLO to [facility]. Legally authenticated by FOSTER GUNN 2021-01-13 14:52:07 us Generic [place] Provider CV VASCULAR PROCEDUR ES Final Result documented in this encounter Visit Diagnoses Not on filedocumented in this encounter Additional Health Concerns Assessment Noted Time PHQ-9 Depression Total Score: 021 8:19 AM EDT documented as of this encounter Care Teams Intake Specialist Relationship Specialty Start Date End Date Edith Correia MD [address] [place] [address] PCP - General 08/08/20 10/04/22 [place] [address] PCP - General Family Medicine 10/05/22 12/14/22 documented as of this encounter
--- NOTE | 2024-12-28 15:15 | CA_ITS ---
APPROVED REPORT EXAM: Comprehensive 2D, Doppler, and color-flow Echocardiogram with contrast [place] Tender: Lori Steen CRT Ht: 5 ft 2 in Wt: 283lbs BSA: 2.22 BP: 124/93 mmHg Indications: Abnormal ECG, Chest Pain TDE due to body habitus and pt flat on back, valves difficult to image Echo Enhancing Agent Indication: Endocardial border delineation Agent(s) / Amount(s) Used: Definity 2 cc Comments: Definity given M-Mode Dimensions RVDd 2.25 cm (0.9-2.6) LA Diam 3.19 cm (1.9-4.0) LVDd 3.25 cm (3.5-5.7) LVDs 2.10 cm (3.5-5.7) IVSd 1.78 cm (0.6-1.1) PWd 1.28 cm (0.6-1.1) EF (Teich) 66.10% FS 35.40% EDV (Teich) 42.50 mL ESV (Teich) 14.40 mL LV Diastology E Decel Time 233 (160-240 msec) E/A Ratio 0.78 MED A' 10.50 cm/s LAT A' 10.20 cm/s Mitral Valve MV A Velocity 66.0 (40-130 cm/s) E/A Ratio 0.78 Pulmonary Valve PV Peak Velocity 67.0 (50-150 cm/s) Tricuspid Valve TR P. Velocity 143.00 cm/s RAP Estimate 10.00 mmHg RVSP 18.20 mmHg Left Ventricle The left ventricle is normal size. Left ventricular systolic function is normal. The left ventricular ejection fraction is within the normal range. There is increased left ventricular wall thickness. There is normal LV segmental wall motion. Transmitral Doppler flow pattern suggests impaired LV relaxation. No left ventricle thrombus noted on this study. LVEF is 55% Right Ventricle The right ventricle is not very well visualized, but grossly appears normal in size and function. Atria The left atrium size is normal. The right atrium is not well visualized. The interatrial septum is not well visualized. Aortic Valve The aortic valve opens well. There is no hemodynamically significant aortic valvular stenosis. No aortic regurgitation is present. Mitral Valve The mitral valve is normal in structure. No evidence of mitral valve stenosis. Trace mitral regurgitation is present. Tricuspid Valve The tricuspid valve leaflets are thin and pliable. Trace tricuspid regurgitation. There is insufficient TR jet to estimate RVSP. Pulmonic Valve The pulmonary valve is not well visualized. Great Vessels The aortic root is normal in size. IVC is normal in size and collapses >50% with inspiration. Pericardium There is no pericardial effusion. Other Information Study Quality: Technically Difficult Conclusion Technically difficult study. Normal biventricular size and systolic function. No significant valvular stenosis or regurgitation in the visualized valves. Electronically signed by : Ericka Najera MD 12/30/2024 02:05:07
[2024-12-28] MEDS: DEFINITY US ECHO CONTRAST 2ML INJ 2 MG IV (15:57)
--- OUTSIDE RECORDS SUMMARY | 2024-12-28 16:02 | XMS_ITS | CCD ---
Author Organization Unknown Care Team Providers Care Lean Manufacturing Engineer Name Role Phone Non Engaged, [employer] Primary Care Provider Unav ailable Unavailable Chronic Care Management Unavaila ble Summary Purpose DataExchange Insurance Providers Payer name Policy type / Coverage type Covered libertarian ID Effective Begin Date Effective End Date [facility] [id number] Unknown Unknown Family History Family History data not found Medication Administered No Medication Administered data Reason For Visit No Reason For Visit data Medical Equipment No Medical Equipment data Advance Directives No Advance Directive data
== END 2024-12-28 23:59 | disposition home or self-care (01) ==
LOC: RT 15:00
PROVIDERS: PCP Nurse Practitioner; Visit Provider Internal Medicine
DX: R07.89 Other chest pain (principal); R94.31 Abnormal electrocardiogram [ECG] [EKG]
CPT/HCPCS: 93306; Q9957